=== PATIENT | female | born 1970 | race African-American/Black ===

== ENCOUNTER 2016-06-12 02:19 | Inpatient (IN) | payer MEDICARE ==
[~2016-06-12] VITALS: Ht 175.3 cm; Wt 68.5 kg
[~2016-06-12 02:19] MED LIST: ACET325T16 PO; ACET325T9 PO; BACI1TAB2 PO; CETI10TA22 PO; CIPR500T PO; COLC0.6T34 PO; CYAN10002 IJ; CYAN10002 IM; CYAN10005 PO; CYCL10TA2 PO; DEFE360T PO; FLUT16SP NS; FLUT9.9S NS; FOLI0.4T2 PO; FOLI1TAB16 PO; HYDR500C3 PO; LANS15CA66 PO; METO25TA4 PO; MONT10TA9 PO; MORP15TA3 PO; MULT-245 PO; OXYC-250 PO; OXYC10TA PO
[2016-06-12 03:25] LABS: BASO # 0.1 x10^3/uL (0.0-0.2); BASO % 1 % (0-3); EOS % 1 % (0-3); LYMPH # 5.5 x10^3/uL (1.0-4.8); LYMPH % 35 % (24-48); MEAN CORPUSCULAR HEMOGLOBIN 36 pg (25-35); MEAN CORPUSCULAR HGB CONC 35 g/dL (31-37); MEAN CORPUSCULAR VOLUME 102 fL (79-100); MONO % 14 % (0-9); NEUT % 50 % (31-73); PLATELET COUNT 282 x10^3/uL (140-400); RED BLOOD COUNT 1.94 x10^6/uL (3.50-5.40); RED CELL DISTRIBUTION WIDTH 19.8 % (11.5-14.5); WHITE BLOOD COUNT 15.9 x10^3/uL (4.0-11.0)
[2016-06-12] MEDS ORDERED: HYDROMORPHONE 2 MG/ML VIAL. IV ONE (03:30)
[2016-06-12] MEDS ORDERED: IV NORMAL SALINE 1000ML BAG 1,000 ML IV ONE (03:30)
[2016-06-12] MEDS: PROMETHAZINE 12.5 MG in IV NORMAL SALINE 50ML 50 ML IV PRN (03:40)
[2016-06-12 03:42] LABS: HEMATOCRIT 19.8 % (36.0-47.0)
[2016-06-12 03:43] LABS: RETIC COUNT 4.4 % (0.5-2.5)
[2016-06-12 04:59] VITALS: BP 154/96
--- NOTE | 2016-06-12 05:08 | PHYS DOC ---
Past Medical History Past Medical History: Sickle Cell Disease Additional Past Medical Histor: sickle cell Past Surgical History: Cholecystectomy Alcohol Use: None Drug Use: None Adult General Chief Complaint Chief Complaint: PAIN CONTROL HPI HPI 45-year-old female with known history of sickle cell disease is presenting in acute pain crisis. She states she had a febrile illness several days ago that preceded her symptoms. She states her pain is diffusely painful. Is no focality of her symptoms. She's got diffuse joint aches everywhere. She denies any significant chest pain or shortness of breath. Patient is in no distress at this time but does rate her pain a 10 out of 10 on the pain scale. Review of Systems Review of Systems Constitutional: Denies fever or chills [] Eyes: Denies change in visual acuity, redness, or eye pain [] HENT: Denies nasal congestion or sore throat [] Respiratory: Denies cough or shortness of breath [] Cardiovascular: No additional information not addressed in HPI [] GI: Denies abdominal pain, nausea, vomiting, bloody stools or diarrhea [] : Denies dysuria or hematuria [] Musculoskeletal: Denies back pain, has joint pain [] Integument: Denies rash or skin lesions [] Neurologic: Denies headache, focal weakness or sensory changes [] Endocrine: Denies polyuria or polydipsia [] Current Medications Current Medications Current Medications Medications (Trade) Dose Ordered Sig/Nilda Start Time Stop Time Status Last Admin Dose Admin Hydromorphone HCl 1 mg 1 mg 1X ONCE 06/12/16 03:30 06/12/16 03:31 DC 06/12/16 03:40 1 MG Promethazine HCl 12.5 mg/Sodium Chloride 50.5 ml @ 151.5 mls/ hr PRN Q6HRS PRN 06/12/16 03:30 06/12/16 03:40 151.5 MLS/HR Sodium Chloride (Iv Sodium Chloride 0.9% 1000ml Bag) 1,000 ml @ 1,000 mls/hr 1X ONCE 06/12/16 03:30 06/12/16 04:29 DC 06/12/16 03:40 1,000 MLS/HR Allergies Allergies Allergies Coded Allergies Type Severity Reaction Last Updated Verified Penicillins Allergy Intermediate Rash 08/05/14 Yes bacitracin Allergy Intermediate Rash 08/05/14 Yes bacitracin zinc Allergy Intermediate Rash 08/05/14 Yes clindamycin Allergy Intermediate Rash 08/05/14 Yes neomycin sulfate Allergy Intermediate Rash 08/05/14 Yes polymyxin B Allergy Intermediate Rash 08/05/14 Yes silver sulfadiazine Allergy Intermediate 07/13/15 Yes sulfamethoxazole Allergy Intermediate 02/07/15 Yes trimethoprim Allergy Intermediate 02/07/15 Yes diltiazem Allergy Mild hives 03/02/16 Yes fentanyl Adverse Reaction Intermediate CAUSE SEVERE HEADACHE AND N/V 02/07/15 Yes Physical Exam Physical Exam Constitutional: Well developed, well nourished, no acute distress, non-toxic appearance. [] HENT: Normocephalic, atraumatic, bilateral external ears normal, oropharynx moist, no oral exudates, nose normal. [] Eyes: PERRLA, EOMI, conjunctiva normal, no discharge. [] Neck: Normal range of motion, no tenderness, supple, no stridor. [] Cardiovascular:Heart rate regular rhythm, no murmur [] Lungs & Thorax: Bilateral breath sounds clear to auscultation [] Abdomen: Bowel sounds normal, soft, no tenderness, no masses, no pulsatile masses. [] Skin: Warm, dry, no erythema, no rash. [] Back: No tenderness, no CVA tenderness. [] Extremities: No tenderness, no cyanosis, no clubbing, ROM intact, no edema. [] Neurologic: Alert and oriented X 3, normal motor function, normal sensory function, no focal deficits noted. [] Psychologic: Affect normal, judgement normal, mood normal. [] Current Patient Data Vital Signs Vital Signs Date Time Temp Pulse Resp B/P Pulse Ox O2 Delivery O2 Flow Rate FiO2 06/12/16 03:40 20 06/12/16 03:30 86 94 06/12/16 02:57 98.4 180/102 Room Air 98.4 Lab Values Laboratory Tests Test 06/12/16 02:52 White Blood Count 15.9x10^3/uL (4.0-11.0) H Red Blood Count 1.94x10^6/uL (3.50-5.40) L Hemoglobin 7.0g/dL (12.0-15.5) *L Hematocrit 19.8% (36.0-47.0) *L Mean Corpuscular Volume 102fL (79-100) H Mean Corpuscular Hemoglobin 36pg (25-35) H Mean Corpuscular Hemoglobin Concent 35g/dL (31-37) Red Cell Distribution Width 19.8% (11.5-14.5) H Platelet Count 282x10^3/uL (140-400) Neutrophils (%) (Auto) 50% (31-73) Lymphocytes (%) (Auto) 35% (24-48) Monocytes (%) (Auto) 14% (0-9) H Eosinophils (%) (Auto) 1% (0-3) Basophils (%) (Auto) 1% (0-3) Neutrophils # (Auto) 8.0x10^3uL (1.8-7.7) H Lymphocytes # (Auto) 5.5x10^3/uL (1.0-4.8) H Monocytes # (Auto) 2.2x10^3/uL (0.0-1.1) H Eosinophils # (Auto) 0.2x10^3/uL (0.0-0.7) Basophils # (Auto) 0.1x10^3/uL (0.0-0.2) Platelet Estimate Adequate (ADEQUATE) Giant Platelets Few Polychromasia Mod Anisocytosis Slight Sickle Cells Many Target Cells Few Tear Drop Cells Occ Reticulocyte Count (auto) 4.4% (0.5-2.5) H Sodium Level 146mmol/L (136-145) H Potassium Level 4.1mmol/L (3.5-5.1) Chloride Level 111mmol/L (98-107) H Carbon Dioxide Level 24mmol/L (21-32) Anion Gap 11 (6-14) Blood Urea Nitrogen 9mg/dL (7-20) Creatinine 0.7mg/dL (0.6-1.0) Estimated GFR (Cockcroft-Gault) 109.5 BUN/Creatinine Ratio 13 (6-20) Glucose Level 131mg/dL (70-99) H Calcium Level 8.3mg/dL (8.5-10.1) L Total Bilirubin 2.5mg/dL (0.2-1.0) H Aspartate Amino Transferase (AST) 63U/L (15-37) H Alanine Aminotransferase (ALT) 75U/L (14-59) H Alkaline Phosphatase 85U/L (46-116) Total Protein 7.7g/dL (6.4-8.2) Albumin 3.7g/dL (3.4-5.0) Albumin/Globulin Ratio 0.9 (1.0-1.7) L Laboratory Tests 06/12/16 02:52 Laboratory Tests 06/12/16 02:52 EKG EKG [] Radiology/Procedures Radiology/Procedures [] Course & Med Decision Making Course & Med Decision Making Pertinent Labs and Imaging studies reviewed. (See chart for details) This 45-year-old female who presents in sickle cell pain crisis has an anemia of 7.0 which is less than previous hematoma she's had. Her previous hemoglobin levels have been closer to 8. She was given multiple doses of IV Dilaudid but her pain is still significant. I discussed the need to admit her for sickle cell anemia and pain crisis with the hospitalist, Dr. Santa, who agreed with this assessment and plan. Dragon Disclaimer Dragon Disclaimer This electronic medical record was generated, in whole or in part, using a voice recognition dictation system. Departure Departure Impression: Primary Impression: Sickle cell anemia with pain Disposition: ADMITTED INPATIENT Admitting Physician: Ch[place] Sierra Condition: STABLE Referrals: KIA SANTA MD (PCP) GLORIA GRAMAJO DO Jun 12, 2016 05:08
[2016-06-12] MEDS: HYDROMORPHONE 2 MG/ML VIAL. IV SCH ×2 (05:16→05:40)
[2016-06-12 05:19] LABS: PLT ESTIMATE ADEQUATE (ADEQUATE)
[2016-06-12 05:20] LABS: ANISOCYTOSIS SLIGHT; POLYCHROMASIA MOD; SICKLE CELLS MANY; TARGET CELLS FEW; TEAR DROP CELLS OCC
[2016-06-12] MEDS: IV NORMAL SALINE 1000ML BAG 1,000 ML IV SCH ×2 (06:08→16:07)
[2016-06-12 06:22] LABS: ALBUMIN 3.7 g/dL (3.4-5.0); ALBUMIN/GLOBULIN RATIO 0.9 (1.0-1.7); CALCIUM 8.3 mg/dL (8.5-10.1); CREATININE 0.7 mg/dL (0.6-1.0); GFR 109.5; POTASSIUM 4.1 mmol/L (3.5-5.1); TOTAL BILIRUBIN 2.5 mg/dL (0.2-1.0); TOTAL PROTEIN 7.7 g/dL (6.4-8.2)
[2016-06-12 07:00] VITALS: BP 121/67
[2016-06-12 07:21] LABS: OBC FLU VALID
[2016-06-12] MEDS ORDERED: PNEUMOCOCCAL VAX SCREEN BY RX. MC ONE (08:00)
[2016-06-12] MEDS: HYDROMORPHONE 2 MG/ML VIAL. IV PRN ×4 (08:25→21:37)
[2016-06-12] MEDS ORDERED: PNEUMOC CONJ VACC 23-VALENT 0.5 ML VIAL. VAX IM ONE (09:00)
--- NOTE | 2016-06-12 09:38 | ACF ---
Admission Forms Criteria SICKLE CELL DISEASE Clinical Indications for Admission to Inpatient Care (Place 'X' for any and all applicable criteria): Admission is indicated for ANY ONE of the following(1)(2)(3)(4)(5): [X ]I. Inpatient admission required rather than observation care because of ANY ONE of the following: [ ]a) Altered mental status [ ]b) High fever or infection requiring inpatient admission as indicated by ANY ONE of the following: [ ]A. Appropriate outpatient observation care antimicrobial treatment unavailable, not effective, or not appropriate for infection [ ]B. Documented bacteremia [ ]C. Temp >104.9F (40.5C) (oral) [ ]D. Temp >103.1F (oral) or <96.8F(rectal) that does not respond to all emergency treatment measures [ ]c) Supplemental O2 or respiratory therapy for over 24 h that are performable only in acute inpatient setting [X ]d) Continuous parenteral narcoticsother major pain intervention for >24 h performable only in acute inpatient setting. [ ]e) Exchange transfusion [ ]f) Other condition, treatment or monitoring requiring inpatient admission [ ]II. Acute chest syndrome indicated by ALL of the following (10): [ ]a) New alveolar infiltrate involving at least one lung segment [ ]b) Associated pulmonary symptoms or findings as indicated by ANY ONE of the following: [ ]i) Chest pain [ ]ii) Hypoxemia [ ]iii) Tachypnea/dyspnea [ ]iv) Wheezing [ ]v) Cough [ ]vi) Sputum production [ ]III. Significant hypoxemia or acidosis (more severe than baseline) [ ]IV. Emergent surgery needed (eg, acute cholecystitis) [ ]V. -related complication(11) [ ]. Splenic or hepatic sequestration(12) [ ]VII. Aplastic crisis [ ]VIII. Priapism or other vascular complication(13) [ ]IX. Traumatic hyphema [A](14) [ ]X. Underlying condition requiring hospitalization (eg, osteomyelitis) [ ]XI. Signs or symptoms of central nervous system injury indicated by ANY ONE of the following: [ ]a) Stroke(9) [ ]b) Seizure [ ]c) Other significant central nervous system symptom or event [ ]XII. Acute renal failure Extended stay beyond goal length of stay may be needed for: [ ]a) Inadequate pain control [ ]b) Acute chest syndrome [ ]c) Sequestration or aplastic crisis (12) [ ]d) Pneumonia and asthma exacerbation [ ]e) Neurologic or vascular complications (25) [ ]f) Infection (eg, osteomyelitis) that requires ongoing treatment) The original [facility] content created by [facility] has been revised. The portions of the content which have been revised are identified through the use of italic text or in bold, and [facility] has neither reviewed nor approved the modified material. All other unmodified content is copyright [facility]. Please see references footnoted in the original [facility] edition 2016 Admission Criteria Met?: Yes GISELL GARCIA Jun 12, 2016 09:38
[2016-06-12] MEDS ORDERED: ACETAMINOPHEN 325 MG TABLET. PO PRN ×2 (09:45)
[2016-06-12] MEDS: FLUTICASONE 50MCG/NASAL SPRAY 16GM BOTTLE. NS SCH (10:12)
[2016-06-12] MEDS: METOPROLOL TART IMMED RELEASE 25 MG TABLET PO SCH ×2 (10:13→21:31)
[2016-06-12] MEDS: CYANOCOBALAMIN (VITAMIN B-12) 1,000 MCG TABLET. PO SCH (10:13)
[2016-06-12] MEDS: MORPHINE ER 15 MG TABLET.ER PO SCH ×2 (10:14→21:00)
[2016-06-12] MEDS: FOLIC ACID 1 MG TABLET PO SCH (10:14)
[2016-06-12 11:00] VITALS: BP 124/74
[2016-06-12] MEDS ORDERED: OSELTAMIVIR 75 MG CAPSULE PO ONE (11:15)
--- NOTE | 2016-06-12 12:39 | PDOC ---
Provider Note Provider Note Patient seen. History and Physical dictated. See dictation# [id number]. KIA SANTA MD Jun 12, 2016 12:39
--- NOTE | 2016-06-12 14:05 | RAD ---
Two view chest History:Cough, shortness of breath . PA and lateral views of the chest are submitted. Comparison: 03/02/2016 Findings: There is no significant infiltrate, pleural effusion, or pneumothorax. The pericardial cardiac silhouette is within normal limits in size. The trachea is in the midline. No acute osseous abnormality is identified. Impression: There is no evidence of acute cardiopulmonary disease.
--- NOTE | 2016-06-12 14:31 | PDOC ---
Provider Note Provider Note Onc consult dictated- [id number] SCD with crisis related to Influenza A last week- Cont supportive care, IVF, improving. Restarted hydrea. Iron overload from transfusions- on Exjade as outpt. Limit transfusions for hgb <6 please. Ok to DC from heme standpoint when sx are stable, hopefully tomorrow. ANTONIETA BAILEY DO Jun 12, 2016 14:31
[2016-06-12 15:00] VITALS: BP 116/71
[2016-06-12 18:52] LABS: BILIRUBIN,URINE NEGATIVE (NEG); GLUCOSE,URINE NEGATIVE (NEG); NITRITE,URINE NEGATIVE (NEG); PROTEIN,URINE NEGATIVE (NEG-TRACE); UROBILINOGEN,URINE 0.2 mg/dL (0.2 mg/dL)
[2016-06-12 19:00] LABS: BACTERIA,URINE FEW /HPF (0-FEW); RBC,URINE 0 /HPF (0-2); SQUAMOUS EPITHELIAL CELL,UR FEW /LPF; WBC,URINE OCC /HPF (0-4)
[2016-06-12 19:12] VITALS: BP 123/75
[2016-06-12] MEDS: OXYCODONE IR 5 MG TABLET. PO PRN (19:21)
[2016-06-12] MEDS: CETIRIZINE HCL 10 MG TABLET PO SCH (21:31)
[2016-06-12] MEDS: HYDROXYUREA 500 MG CAPSULE PO SCH (21:34)
[2016-06-12] MEDS: MONTELUKAST SODIUM 10 MG TABLET. PO SCH (21:36)
--- NOTE | 2016-06-12 22:16 | HP ---
ADMIT DATE: 06/12/2016 REASON FOR ADMISSION: Acute sickle cell crisis. HISTORY OF PRESENT ILLNESS: This 45-year-old -[place] female presented to the Emergency Room with complaints of body ache, cough, congestion getting worse. The patient was recently diagnosed with influenzae and was started on Tamiflu. She has taken nine tablets of Tamiflu. She is having cough with yellow expectoration. She is feeling weak and more tired. In the Emergency Room, the patient was noted to have acute sickle cell crisis. WBC count was 15.9, hemoglobin 7 and retic count was 4.4. Because of the acute sickle cell crisis, the patient was admitted for further evaluation and management. REVIEW OF SYSTEMS: As noted above. The patient denies any nausea, vomiting, diarrhea, constipation, abdominal pain. She is complaining of joint pains, body aches, fatigue and cough with yellow expectoration. Other systems reviewed and are negative. PAST MEDICAL HISTORY: The patient has been admitted here recently in March 2016. At that time, she was noted to have supraventricular tachycardia. 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 PAST SURGICAL HISTORY: None. FAMILY HISTORY: Sickle cell trait in parents. SOCIAL HISTORY: . No history of smoking, alcoholism or drug abuse. MEDICATIONS: I reviewed the medications. Please review the orders. ALLERGIES: The patient is allergic to PENICILLIN, BACITRACIN, ZINC, CLINDAMYCIN, NEOMYCIN, POLYMYXIN B, SILVER SULFADIAZINE, SULFAMETHOXAZOLE, TRIMETHOPRIM, DILTIAZEM and FENTANYL. PHYSICAL EXAMINATION: VITAL SIGNS: Temperature 98.8, pulse 64 per minute, respirations 18 per minute, blood pressure 124/74 mmHg. Earlier on admission, her blood pressure was 154/96 mmHg. GENERAL: The patient is alert, oriented, acutely ill and not in any acute distress. EYES: Pupils reacting to light. Conjunctivae pale. Sclerae muddy. HENT: Mild congestion of throat. NECK: Supple. JVP normal. No thyromegaly. Trachea midline. LUNGS: Clear with decreased breath sounds at bases. CARDIOVASCULAR: S1, S2 regular. ABDOMEN: Soft, nontender, no guarding, no rigidity. Bowel sounds present. EXTREMITIES: No edema. Some tenderness of the joints and painful range of motion. CENTRAL NERVOUS SYSTEM: Alert, oriented, generalized weakness. LABORATORY FINDINGS: WBC count 15.9, hemoglobin 7%, retic count 4.4. Sodium 146, potassium 4.1, BUN 9, creatinine 0.7, total bilirubin 2.5, AST 63, ALT 75. IMPRESSION: 1. Acute sickle cell crisis. This may be precipitated by her recent influenzae infection. 2. Influenza A infection, improving. 3. Acute bronchitis. This may be due to secondary bacterial infection. 4. Accelerated hypertension, probably due to pain, improving. 5. Pulmonary hypertension. 6. Gastroesophageal reflux disease. 7. Anemia. 8. Iron overload from previous transfusions. 9. Chronic right ankle pain. PLAN: I will finish one more dose of Tamiflu. Consult Dr. Ramirez for hematology evaluation and management. The patient may need blood transfusion. The patient has some hypovolemia. I will start her on IV fluids. I will also give her IV Levaquin to cover for bacterial bronchitis. For details, please review the orders. I will also obtain a chest x-ray and urinalysis. For details, please review the orders. KIA SANTA MD DR: BENIGNO/rylan JOB#: [id number] / [id number]
[2016-06-12 23:17] VITALS: BP 120/69
--- NOTE | 2016-06-13 01:21 | CONS ---
DATE OF CONSULTATION: 06/12/2016 REFERRING PROVIDER: Dr. Sly Hoffman. REASON FOR CONSULTATION: Sickle cell crisis. HISTORY OF PRESENT ILLNESS: The patient is a 45-year-old female known to me in clinic with a history of sickle cell disease. Overall, she remains very stable, but does get admitted approximately twice a year with sickle cell crises. Her baseline hemoglobin is around 8-8.5. She was diagnosed with influenza A last week and started on Tamiflu. Her symptoms of fatigue, nausea, vomiting, diarrhea, diffuse arthralgias, improved; however, later in the week, she began to have a flare up of her baseline pain which is generally fairly well controlled. She has been on Hydrea 500 mg b.i.d. and her PCP controls her pain medication. Here, her hemoglobin was 7.0. Reticulocyte count 4.4, white blood cell count 15.9. Repeat influenza testing was negative. She is feeling better now that she has been getting IV fluids. 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 PAST SURGICAL HISTORY: Cholecystectomy, multiple dilations and curettage, skin grafting, bilateral ankle surgeries as a child for the MRSA infection. FAMILY HISTORY: Mom and dad have sickle cell trait. Mom has hypertension as well. SOCIAL HISTORY: Denies any tobacco, alcohol or drug use. ALLERGIES: Extensive list reviewed. Please see medical record. CURRENT MEDICATIONS: Tylenol, Zyrtec, vitamin B12, Flonase, folic acid, Dilaudid, Lopressor, Singulair, MS Contin, oxycodone, Compazine, her Hydrea is missing. REVIEW OF SYSTEMS: Ten point review of systems completed and unremarkable with the exception of the diffuse arthralgias, now improving. PHYSICAL EXAMINATION: VITAL SIGNS: Temperature 98.8, pulse 64, respiratory rate 18, blood pressure 124/74, 100% O2 on 2 liters. GENERAL: She is alert and oriented. She does appear fatigued, but in no apparent distress at this time. HEENT: Extraocular muscles are intact. Sclerae are without icterus. Mucous membranes are dry. CARDIOVASCULAR: Heart is regular in rhythm and rate. LUNGS: Clear to auscultation bilaterally. ABDOMEN: Soft, nontender. EXTREMITIES: No edema. NEUROLOGIC: No focal deficits. IMAGING/LABORATORY DATA: CBC as above. CMP unremarkable with the exception of total bilirubin 2.5, AST 63, ALT 75. Chest x-ray was negative. ASSESSMENT AND PLAN: The patient is a 45-year-old female with the following medical problems: 1. Sickle cell disease, generally very stable, but with crisis related to influenza A infection last week. Her baseline hemoglobin is 8.5. Her hemoglobin on admission was 7.0. With the IV fluids that we are giving her for supportive care, her hemoglobin may dip further overnight. I would not recommend a transfusion unless her hemoglobin drops less than 6. I have restarted her Hydrea 500 mg b.i.d. She should continue on folic acid as well. Overall, she appears very stable. I will continue to follow up with her as planned in clinic, likely in the next few months. 2. Iron overload related to ongoing transfusions. Again, please limit transfusions as possible. She is on Exjade as an outpatient. It is okay that she is not receiving this while admitted. 3. Recent influenza infection. Repeat testing is negative. Thank you for alerting me of her admission. From a hematology standpoint, she can be discharged at any point when her symptoms are improved. I believe her hemoglobin will slowly rise over time. ANTONIETA BAILEY DO DR: LATA/rylan JOB#: [id number] / [id number]
[2016-06-13 03:20] VITALS: BP 117/67
[2016-06-13] MEDS: HYDROMORPHONE 2 MG/ML VIAL. IV PRN ×6 (04:19→23:54)
[2016-06-13] MEDS: IV NORMAL SALINE 1000ML BAG 1,000 ML IV SCH ×3 (04:20→15:01)
[2016-06-13 05:11] LABS: BASO # 0.1 x10^3/uL (0.0-0.2); BASO % 1 % (0-3); EOS % 3 % (0-3); LYMPH % 40 % (24-48); MEAN CORPUSCULAR HEMOGLOBIN 36 pg (25-35); MEAN CORPUSCULAR HGB CONC 34 g/dL (31-37); MEAN CORPUSCULAR VOLUME 105 fL (79-100); MONO % 15 % (0-9); NEUT % 40 % (31-73); PLATELET COUNT 294 x10^3/uL (140-400); RED BLOOD COUNT 1.88 x10^6/uL (3.50-5.40); RED CELL DISTRIBUTION WIDTH 18.6 % (11.5-14.5); WHITE BLOOD COUNT 12.3 x10^3/uL (4.0-11.0)
[2016-06-13 05:28] LABS: HEMATOCRIT 19.6 % (36.0-47.0); HEMOGLOBIN 6.7 g/dL (12.0-15.5)
[2016-06-13 05:54] LABS: ALBUMIN 3.2 g/dL (3.4-5.0); ALBUMIN/GLOBULIN RATIO 0.8 (1.0-1.7); CALCIUM 8.1 mg/dL (8.5-10.1); CREATININE 0.6 mg/dL (0.6-1.0); GFR 130.8; POTASSIUM 4.2 mmol/L (3.5-5.1); TOTAL BILIRUBIN 1.6 mg/dL (0.2-1.0)
[2016-06-13 07:00] VITALS: BP 125/76
[2016-06-13] MEDS ORDERED: MORPHINE ER 15 MG TABLET.ER PO ONE (08:50)
[2016-06-13] MEDS: MORPHINE ER 15 MG TABLET.ER PO SCH ×2 (09:09→21:40)
[2016-06-13] MEDS: METOPROLOL TART IMMED RELEASE 25 MG TABLET PO SCH ×2 (09:10→21:40)
[2016-06-13] MEDS: FOLIC ACID 1 MG TABLET PO SCH (09:10)
[2016-06-13] MEDS: CYANOCOBALAMIN (VITAMIN B-12) 1,000 MCG TABLET. PO SCH (09:10)
[2016-06-13] MEDS: FLUTICASONE 50MCG/NASAL SPRAY 16GM BOTTLE. NS SCH (09:10)
--- NOTE | 2016-06-13 09:14 | PDOC ---
NARENDRAHILDAANNABELLA MAIL SORTER 06/13/16 0914: IM PROGRESS NOTES- Subjective Subjective continues with cough. non productive. (was productive last week yellow sputum) Objective Objective no distress Vitals Vital Signs Date Time Temp Pulse Resp B/P Pulse Ox O2 Delivery O2 Flow Rate FiO2 06/13/16 07:15 Nasal Cannula 2.0 06/13/16 07:00 98.3 66 16 125/76 100 98.3 Input & Output Intake and Output 06/13/16 07:00 Intake Total 2736 ml Output Total 800 ml Balance 1936 ml Intake Oral 1690 ml IV Total 1046 ml Output Urine Total 800 ml # Voids 3 Physical Exam Physical Exam General appearance - alert, ill appearing, and in no distress Mental Status - alert, oriented to person, place, and time, affect appropriate to mood Head - normal Chest - clear to auscultation, no wheezes, rales or rhonchi, tight bronchial cough Heart - S1 and S2 normal Abdomen - soft, nontender, nondistended, BS+ Neurological - no acute focal neurological deficits noted Musculoskeletal - no muscular tenderness noted Extremities - no pedal edema Skin - warm and dry Labs Laboratory Tests Test 06/12/16 02:52 06/12/16 06:00 06/12/16 16:50 06/13/16 04:35 White Blood Count 15.9x10^3/uL (4.0-11.0) 12.3x10^3/uL (4.0-11.0) Red Blood Count 1.94x10^6/uL (3.50-5.40) 1.88x10^6/uL (3.50-5.40) Hemoglobin 7.0g/dL (12.0-15.5) 6.7g/dL (12.0-15.5) Hematocrit 19.8% (36.0-47.0) 19.6% (36.0-47.0) Mean Corpuscular Volume 102fL (79-100) 105fL (79-100) Mean Corpuscular Hemoglobin 36pg (25-35) 36pg (25-35) Mean Corpuscular Hemoglobin Concent 35g/dL (31-37) 34g/dL (31-37) Red Cell Distribution Width 19.8% (11.5-14.5) 18.6% (11.5-14.5) Platelet Count 282x10^3/uL (140-400) 294x10^3/uL (140-400) Neutrophils (%) (Auto) 50% (31-73) 40% (31-73) Lymphocytes (%) (Auto) 35% (24-48) 40% (24-48) Monocytes (%) (Auto) 14% (0-9) 15% (0-9) Eosinophils (%) (Auto) 1% (0-3) 3% (0-3) Basophils (%) (Auto) 1% (0-3) 1% (0-3) Neutrophils # (Auto) 8.0x10^3uL (1.8-7.7) 5.0x10^3uL (1.8-7.7) Lymphocytes # (Auto) 5.5x10^3/uL (1.0-4.8) 5.0x10^3/uL (1.0-4.8) Monocytes # (Auto) 2.2x10^3/uL (0.0-1.1) 1.9x10^3/uL (0.0-1.1) Eosinophils # (Auto) 0.2x10^3/uL (0.0-0.7) 0.4x10^3/uL (0.0-0.7) Basophils # (Auto) 0.1x10^3/uL (0.0-0.2) 0.1x10^3/uL (0.0-0.2) Platelet Estimate Adequate (ADEQUATE) Giant Platelets Few Polychromasia Mod Anisocytosis Slight Sickle Cells Many Target Cells Few Tear Drop Cells Occ Reticulocyte Count (auto) 4.4% (0.5-2.5) Sodium Level 146mmol/L (136-145) 144mmol/L (136-145) Potassium Level 4.1mmol/L (3.5-5.1) 4.2mmol/L (3.5-5.1) Chloride Level 111mmol/L (98-107) 109mmol/L (98-107) Carbon Dioxide Level 24mmol/L (21-32) 24mmol/L (21-32) Anion Gap 11 (6-14) 11 (6-14) Blood Urea Nitrogen 9mg/dL (7-20) 4mg/dL (7-20) Creatinine 0.7mg/dL (0.6-1.0) 0.6mg/dL (0.6-1.0) Estimated GFR (Cockcroft-Gault) 109.5 130.8 BUN/Creatinine Ratio 13 (6-20) 7 (6-20) Glucose Level 131mg/dL (70-99) 96mg/dL (70-99) Calcium Level 8.3mg/dL (8.5-10.1) 8.1mg/dL (8.5-10.1) Total Bilirubin 2.5mg/dL (0.2-1.0) 1.6mg/dL (0.2-1.0) Aspartate Amino Transf (AST/SGOT) 63U/L (15-37) 41U/L (15-37) Alanine Aminotransferase (ALT/SGPT) 75U/L (14-59) 56U/L (14-59) Alkaline Phosphatase 85U/L (46-116) 61U/L (46-116) Total Protein 7.7g/dL (6.4-8.2) 7.0g/dL (6.4-8.2) Albumin 3.7g/dL (3.4-5.0) 3.2g/dL (3.4-5.0) Albumin/Globulin Ratio 0.9 (1.0-1.7) 0.8 (1.0-1.7) Influenza Type A Antigen Negative (NEGATIVE) Influenza Type B Antigen Negative (NEGATIVE) Urine Collection Type Unknown Urine Color Yellow Urine Clarity Clear Urine pH 6.0 Urine Specific [place] <=1.005 Urine Protein Negativemg/dL (NEG-TRACE) Urine Glucose (UA) Negativemg/dL (NEG) Urine Ketones (Stick) Negativemg/dL (NEG) Urine Blood Negative (NEG) Urine Nitrite Negative (NEG) Urine Bilirubin Negative (NEG) Urine Urobilinogen Dipstick 0.2mg/dL (0.2 mg/dL) Urine Leukocyte Esterase Negative (NEG) Urine RBC 0/HPF (0-2) Urine WBC Occ/HPF (0-4) Urine Squamous Epithelial Cells Few/LPF Urine Bacteria Few/HPF (0-FEW) Laboratory Tests Test 06/12/16 16:50 06/13/16 04:35 Urine Collection Type Unknown Urine Color Yellow Urine Clarity Clear Urine pH 6.0 Urine Specific [place] <=1.005 Urine Protein Negativemg/dL (NEG-TRACE) Urine Glucose (UA) Negativemg/dL (NEG) Urine Ketones (Stick) Negativemg/dL (NEG) Urine Blood Negative (NEG) Urine Nitrite Negative (NEG) Urine Bilirubin Negative (NEG) Urine Urobilinogen Dipstick 0.2mg/dL (0.2 mg/dL) Urine Leukocyte Esterase Negative (NEG) Urine RBC 0/HPF (0-2) Urine WBC Occ/HPF (0-4) Urine Squamous Epithelial Cells Few/LPF Urine Bacteria Few/HPF (0-FEW) White Blood Count 12.3x10^3/uL (4.0-11.0) Red Blood Count 1.88x10^6/uL (3.50-5.40) Hemoglobin 6.7g/dL (12.0-15.5) Hematocrit 19.6% (36.0-47.0) Mean Corpuscular Volume 105fL (79-100) Mean Corpuscular Hemoglobin 36pg (25-35) Mean Corpuscular Hemoglobin Concent 34g/dL (31-37) Red Cell Distribution Width 18.6% (11.5-14.5) Platelet Count 294x10^3/uL (140-400) Neutrophils (%) (Auto) 40% (31-73) Lymphocytes (%) (Auto) 40% (24-48) Monocytes (%) (Auto) 15% (0-9) Eosinophils (%) (Auto) 3% (0-3) Basophils (%) (Auto) 1% (0-3) Neutrophils # (Auto) 5.0x10^3uL (1.8-7.7) Lymphocytes # (Auto) 5.0x10^3/uL (1.0-4.8) Monocytes # (Auto) 1.9x10^3/uL (0.0-1.1) Eosinophils # (Auto) 0.4x10^3/uL (0.0-0.7) Basophils # (Auto) 0.1x10^3/uL (0.0-0.2) Sodium Level 144mmol/L (136-145) Potassium Level 4.2mmol/L (3.5-5.1) Chloride Level 109mmol/L (98-107) Carbon Dioxide Level 24mmol/L (21-32) Anion Gap 11 (6-14) Blood Urea Nitrogen 4mg/dL (7-20) Creatinine 0.6mg/dL (0.6-1.0) Estimated GFR (Cockcroft-Gault) 130.8 BUN/Creatinine Ratio 7 (6-20) Glucose Level 96mg/dL (70-99) Calcium Level 8.1mg/dL (8.5-10.1) Total Bilirubin 1.6mg/dL (0.2-1.0) Aspartate Amino Transf (AST/SGOT) 41U/L (15-37) Alanine Aminotransferase (ALT/SGPT) 56U/L (14-59) Alkaline Phosphatase 61U/L (46-116) Total Protein 7.0g/dL (6.4-8.2) Albumin 3.2g/dL (3.4-5.0) Albumin/Globulin Ratio 0.8 (1.0-1.7) Meds Current Medications Acetaminophen (Tylenol) 650 mg PRN Q6HRS PRN PO MILD PAIN / TEMP; Start at 09:45; Stop 06/12/16 at 16:35; Status DC Acetaminophen (Tylenol) 650 mg PRN Q6HRS PRN PO MILD PAIN / TEMP; Start at 09:45 Cetirizine HCl (Zyrtec) 10 mg QHS PO Last administered on 06/12/16 21:31; Start 06/12/16 at 21:00 Cyanocobalamin (Vitamin B-12) 1,000 mcg DAILY PO Last administered on 10:13; Start 06/12/16 at 10:00 Fluticasone Propionate (Flonase) 1 spray DAILY NS Last administered on 10:12; Start 06/12/16 at 10:00 Folic Acid (Folic Acid) 1 mg DAILY PO Last administered on 06/12/16 10:14; Start 06/12/16 at 10:00 Hydroxyurea (Hydrea) 500 mg BID PO Last administered on 06/12/16 21:34; Start 06/12/16 at 21:00 Levofloxacin/ Dextrose (LEVAQUIN 500mg PREMIX) 100 ml @ 100 mls/hr DAILY IV Last administered on 06/12/16 13:29; Start 06/12/16 at 13:00 Metoprolol Tartrate (Lopressor) 12.5 mg BID PO Last administered on 06/12/16 21:31; Start 06/12/16 at 10:00 Montelukast Sodium (Singulair) 10 mg QHS PO Last administered on 06/12/16 21: 36; Start 06/12/16 at 21:00 Morphine Sulfate (Ms Contin) 15 mg BID PO Last administered on 06/12/16 10:14 ; Start 06/12/16 at 10:00 Oseltamivir Phosphate 75 mg 75 mg 1X ONCE PO Last administered on 06/12/16 11 :33; Start 06/12/16 at 11:15; Stop 06/12/16 at 11:16; Status DC Oxycodone HCl (Roxicodone) 10 mg PRN Q4HRS PRN PO PAIN Last administered on 19:21; Start 06/12/16 at 09:45 Assessment Assessment 1. Acute sickle cell crisis. This may be precipitated by her recent influenzae infection. 2. Influenza A infection, improving. 3. Acute bronchitis. This may be due to secondary bacterial infection. 4. Accelerated hypertension, probably due to pain, improving. 5. Pulmonary hypertension. 6. Gastroesophageal reflux disease. 7. Anemia. 8. Iron overload from previous transfusions. 9. Chronic right ankle pain. PLAN: acute brochitis post influenzae A infection levaquin begin duoneb nebulizer today dc home with antibiotic/symbicort inhaler SSC improved after IVF anemia no transfusion unless <6.0 Liver iron overload disease LFTs improving. DVT/GI prophylaxis SCD/MARIYA pepcid For further plan of care, please refer to the orders. Dr. Guzman has okd discharge. Plan Plan For more details regarding further plans, please refer to the orders. KIA SANTA MD 06/13/16 0942: IM PROGRESS NOTES- Assessment Assessment Still coughing and congested with weakness and pain. Continue Levaquin.Add breathing RX. Discharge tomorrow. ANNABELLA ARRINGTON APRN Jun 13, 2016 09:14 KIA SANTA MD Jun 13, 2016 09:42
[2016-06-13] MEDS: HYDROXYUREA 500 MG CAPSULE PO SCH ×2 (09:15→21:43)
--- NOTE | 2016-06-13 09:22 | PDOC ---
Subjective: Subjective: Onc f/u- SCD Pt feels better with improved energy, less arthralgias, feels like she could manage on home meds now. Objective: Vital Signs: Vital Signs Date Time Temp Pulse Resp B/P Pulse Ox O2 Delivery O2 Flow Rate FiO2 06/13/16 09:11 Room Air 06/13/16 09:10 66 125/76 06/13/16 07:15 2.0 06/13/16 07:00 98.3 16 100 98.3 Physical Exam: Heart: Regular rate Extremities: No edema General: Alert, No acute distress Lungs: Normal air movement Psych/Mental Status: Mental status NL, Mood NL Labs/Imaging: Hgb 6.7 Assessment/Plan A/P: 1. Sickle cell disease with crises related to influenza A last week - Improved with supportive care, IVF - Continue hydrea, folic acid at home - Hgb baseline ~8, please limit transfusions for hgb < 6 to avoid further iron overload. Stable clinically today. - F/u with me as planned 2. Iron overload - Avoid transfusions as able - On Exjade as outpt. Ok to DC from onc standpoint. ANTONIETA BAILEY DO Jun 13, 2016 09:21
[2016-06-13 09:34] LABS: % EOS 2 % (0-5); NUCLEATED RBC 9
[2016-06-13 09:38] LABS: PLT ESTIMATE ADEQUATE (ADEQUATE)
[2016-06-13 09:39] LABS: ANISOCYTOSIS SLIGHT; POIKILOCYTOSIS PRESENT; SICKLE CELLS MOD; TARGET CELLS FEW; TEAR DROP CELLS OCC; TOXIC VACUOLATION PRESENT
[2016-06-13] MEDS: IPRATRPIUM/ALBUTEROL 0.5/2.5MG 3 ML NEBU. NEB SCH ×4 (10:00→19:29)
[2016-06-13] MEDS: GUAIFENESIN DM 600/30MG TAB.ER.12H. PO SCH ×2 (10:26→21:39)
[2016-06-13 11:00] VITALS: BP 135/78
[2016-06-13] MEDS: OXYCODONE IR 5 MG TABLET. PO PRN (12:24)
[2016-06-13] MEDS: PROMETHAZINE 12.5 MG in IV NORMAL SALINE 50ML 50 ML IV PRN (13:20)
[2016-06-13 15:00] VITALS: BP 122/69
[2016-06-13 19:00] VITALS: BP 132/76
[2016-06-13] MEDS: CETIRIZINE HCL 10 MG TABLET PO SCH (21:39)
[2016-06-13] MEDS: MONTELUKAST SODIUM 10 MG TABLET. PO SCH (21:39)
[2016-06-13 23:00] VITALS: BP 121/65
[2016-06-14] MEDS: IV NORMAL SALINE 1000ML BAG 1,000 ML IV SCH (01:29)
[2016-06-14 03:00] VITALS: BP 111/70
[2016-06-14 03:35] LABS: BASO # 0.1 x10^3/uL (0.0-0.2); BASO % 1 % (0-3); EOS % 3 % (0-3); LYMPH # 2.8 x10^3/uL (1.0-4.8); LYMPH % 22 % (24-48); MEAN CORPUSCULAR HEMOGLOBIN 36 pg (25-35); MEAN CORPUSCULAR HGB CONC 34 g/dL (31-37); MEAN CORPUSCULAR VOLUME 105 fL (79-100); MONO % 16 % (0-9); NEUT % 59 % (31-73); PLATELET COUNT 279 x10^3/uL (140-400); RED BLOOD COUNT 1.83 x10^6/uL (3.50-5.40); RED CELL DISTRIBUTION WIDTH 19.2 % (11.5-14.5)
[2016-06-14 03:43] LABS: ALBUMIN 3.4 g/dL (3.4-5.0); ALBUMIN/GLOBULIN RATIO 0.9 (1.0-1.7); CALCIUM 8.2 mg/dL (8.5-10.1); CREATININE 0.6 mg/dL (0.6-1.0); GFR 130.8; POTASSIUM 3.9 mmol/L (3.5-5.1); TOTAL BILIRUBIN 2.5 mg/dL (0.2-1.0); TOTAL PROTEIN 7.1 g/dL (6.4-8.2)
[2016-06-14 03:45] LABS: HEMOGLOBIN 6.6 g/dL (12.0-15.5)
[2016-06-14 03:46] LABS: HEMATOCRIT 19.2 % (36.0-47.0)
[2016-06-14] MEDS: HYDROMORPHONE 2 MG/ML VIAL. IV PRN (05:28)
--- NOTE | 2016-06-14 06:52 | PDOC ---
MURPHYANNABELLA CLOTH MEASURER 06/14/16 0652: IM PROGRESS NOTES- Subjective Subjective continues with cough. non productive. cough improved some with nebulizer treatment. Objective Objective no distress Vitals Vital Signs Date Time Temp Pulse Resp B/P Pulse Ox O2 Delivery O2 Flow Rate FiO2 06/14/16 05:58 20 Nasal Cannula 2.0 06/14/16 03:00 98.4 72 111/70 90 98.4 Input & Output Intake and Output 06/14/16 07:00 Intake Total 4748 ml Output Total 375 ml Balance 4373 ml Intake Oral 1400 ml IV Total 2148 ml Other 1200 ml Emesis 375 ml # Voids 4 Physical Exam Physical Exam General appearance - alert, ill appearing, and in no distress Mental Status - alert, oriented to person, place, and time, affect appropriate to mood Head - normal Chest - clear to auscultation, no wheezes, rales or rhonchi, tight bronchial cough Heart - S1 and S2 normal Abdomen - soft, nontender, nondistended, BS+ Neurological - no acute focal neurological deficits noted Musculoskeletal - no muscular tenderness noted Extremities - no pedal edema Skin - warm and dry Labs Laboratory Tests Test 06/12/16 16:50 06/13/16 04:35 06/14/16 03:05 Urine Collection Type Unknown Urine Color Yellow Urine Clarity Clear Urine pH 6.0 Urine Specific [place] <=1.005 Urine Protein Negativemg/dL (NEG-TRACE) Urine Glucose (UA) Negativemg/dL (NEG) Urine Ketones (Stick) Negativemg/dL (NEG) Urine Blood Negative (NEG) Urine Nitrite Negative (NEG) Urine Bilirubin Negative (NEG) Urine Urobilinogen Dipstick 0.2mg/dL (0.2 mg/dL) Urine Leukocyte Esterase Negative (NEG) Urine RBC 0/HPF (0-2) Urine WBC Occ/HPF (0-4) Urine Squamous Epithelial Cells Few/LPF Urine Bacteria Few/HPF (0-FEW) White Blood Count 12.3x10^3/uL (4.0-11.0) 13.0x10^3/uL (4.0-11.0) Red Blood Count 1.88x10^6/uL (3.50-5.40) 1.83x10^6/uL (3.50-5.40) Hemoglobin 6.7g/dL (12.0-15.5) 6.6g/dL (12.0-15.5) Hematocrit 19.6% (36.0-47.0) 19.2% (36.0-47.0) Mean Corpuscular Volume 105fL (79-100) 105fL (79-100) Mean Corpuscular Hemoglobin 36pg (25-35) 36pg (25-35) Mean Corpuscular Hemoglobin Concent 34g/dL (31-37) 34g/dL (31-37) Red Cell Distribution Width 18.6% (11.5-14.5) 19.2% (11.5-14.5) Platelet Count 294x10^3/uL (140-400) 279x10^3/uL (140-400) Neutrophils (%) (Auto) 40% (31-73) 59% (31-73) Lymphocytes (%) (Auto) 40% (24-48) 22% (24-48) Monocytes (%) (Auto) 15% (0-9) 16% (0-9) Eosinophils (%) (Auto) 3% (0-3) 3% (0-3) Basophils (%) (Auto) 1% (0-3) 1% (0-3) Neutrophils # (Auto) 5.0x10^3uL (1.8-7.7) 7.7x10^3uL (1.8-7.7) Lymphocytes # (Auto) 5.0x10^3/uL (1.0-4.8) 2.8x10^3/uL (1.0-4.8) Monocytes # (Auto) 1.9x10^3/uL (0.0-1.1) 2.0x10^3/uL (0.0-1.1) Eosinophils # (Auto) 0.4x10^3/uL (0.0-0.7) 0.4x10^3/uL (0.0-0.7) Basophils # (Auto) 0.1x10^3/uL (0.0-0.2) 0.1x10^3/uL (0.0-0.2) Segmented Neutrophils % 31% (35-66) Lymphocytes % 49% (24-48) Monocytes % 18% (0-10) Eosinophils % 2% (0-5) Nucleated Red Blood Cells 9 Toxic Vacuolation Present Platelet Estimate Adequate (ADEQUATE) Poikilocytosis Present Anisocytosis Slight Sickle Cells Mod Target Cells Few Tear Drop Cells Occ Sodium Level 144mmol/L (136-145) 143mmol/L (136-145) Potassium Level 4.2mmol/L (3.5-5.1) 3.9mmol/L (3.5-5.1) Chloride Level 109mmol/L (98-107) 107mmol/L (98-107) Carbon Dioxide Level 24mmol/L (21-32) 26mmol/L (21-32) Anion Gap 11 (6-14) 10 (6-14) Blood Urea Nitrogen 4mg/dL (7-20) 4mg/dL (7-20) Creatinine 0.6mg/dL (0.6-1.0) 0.6mg/dL (0.6-1.0) Estimated GFR (Cockcroft-Gault) 130.8 130.8 BUN/Creatinine Ratio 7 (6-20) 7 (6-20) Glucose Level 96mg/dL (70-99) 99mg/dL (70-99) Calcium Level 8.1mg/dL (8.5-10.1) 8.2mg/dL (8.5-10.1) Total Bilirubin 1.6mg/dL (0.2-1.0) 2.5mg/dL (0.2-1.0) Aspartate Amino Transf (AST/SGOT) 41U/L (15-37) 42U/L (15-37) Alanine Aminotransferase (ALT/SGPT) 56U/L (14-59) 47U/L (14-59) Alkaline Phosphatase 61U/L (46-116) 74U/L (46-116) Total Protein 7.0g/dL (6.4-8.2) 7.1g/dL (6.4-8.2) Albumin 3.2g/dL (3.4-5.0) 3.4g/dL (3.4-5.0) Albumin/Globulin Ratio 0.8 (1.0-1.7) 0.9 (1.0-1.7) Magnesium Level 1.5mg/dL (1.8-2.4) Laboratory Tests Test 06/14/16 03:05 White Blood Count 13.0x10^3/uL (4.0-11.0) Red Blood Count 1.83x10^6/uL (3.50-5.40) Hemoglobin 6.6g/dL (12.0-15.5) Hematocrit 19.2% (36.0-47.0) Mean Corpuscular Volume 105fL (79-100) Mean Corpuscular Hemoglobin 36pg (25-35) Mean Corpuscular Hemoglobin Concent 34g/dL (31-37) Red Cell Distribution Width 19.2% (11.5-14.5) Platelet Count 279x10^3/uL (140-400) Neutrophils (%) (Auto) 59% (31-73) Lymphocytes (%) (Auto) 22% (24-48) Monocytes (%) (Auto) 16% (0-9) Eosinophils (%) (Auto) 3% (0-3) Basophils (%) (Auto) 1% (0-3) Neutrophils # (Auto) 7.7x10^3uL (1.8-7.7) Lymphocytes # (Auto) 2.8x10^3/uL (1.0-4.8) Monocytes # (Auto) 2.0x10^3/uL (0.0-1.1) Eosinophils # (Auto) 0.4x10^3/uL (0.0-0.7) Basophils # (Auto) 0.1x10^3/uL (0.0-0.2) Sodium Level 143mmol/L (136-145) Potassium Level 3.9mmol/L (3.5-5.1) Chloride Level 107mmol/L (98-107) Carbon Dioxide Level 26mmol/L (21-32) Anion Gap 10 (6-14) Blood Urea Nitrogen 4mg/dL (7-20) Creatinine 0.6mg/dL (0.6-1.0) Estimated GFR (Cockcroft-Gault) 130.8 BUN/Creatinine Ratio 7 (6-20) Glucose Level 99mg/dL (70-99) Calcium Level 8.2mg/dL (8.5-10.1) Magnesium Level 1.5mg/dL (1.8-2.4) Total Bilirubin 2.5mg/dL (0.2-1.0) Aspartate Amino Transf (AST/SGOT) 42U/L (15-37) Alanine Aminotransferase (ALT/SGPT) 47U/L (14-59) Alkaline Phosphatase 74U/L (46-116) Total Protein 7.1g/dL (6.4-8.2) Albumin 3.4g/dL (3.4-5.0) Albumin/Globulin Ratio 0.9 (1.0-1.7) Meds Current Medications Albuterol/ Ipratropium (Duoneb) 3 ml QID NEB Last administered on 06/13/16 19: 29; Start 06/13/16 at 10:00 Guaifenesin (MUCINEX ER with DM) 1 tab BID PO Last administered on 06/13/16 21 :39; Start 06/13/16 at 10:00 Morphine Sulfate (Ms Contin) 15 mg STK-MED ONCE PO ; Start 06/13/16 at 08:50; Stop 06/13/16 at 09:11; Status DC Assessment Assessment 1. Acute sickle cell crisis. 2. Influenza A infection, improving. 3. Acute bronchitis. 4. Accelerated hypertension 5. Pulmonary hypertension. 6. Gastroesophageal reflux disease. 7. Anemia. SSD/B12 and folate 8. Iron overload from previous transfusions. 9. Chronic right ankle pain. PLAN: acute brochitis post influenzae A infection levaquin 500mg IV IV steroids begin duoneb nebulizer today 06/13 dc home with antibiotic/symbicort inhaler 06/14 leukocytosis admit WBC 15.9 06/14 13 SSC improved after IVFNS 100cc/hr and pain control anemia Admit Hgb 7.0 06/14 6.6 no transfusion unless <6.0 hematology consulted Liver iron overload disease LFTs improving. Admit AST 63 06/14 42 ALT 75 47 T bili 2.5 2.5 DVT/GI prophylaxis SCD/MARIYA pepcid For further plan of care, please refer to the orders. Plan Plan For more details regarding further plans, please refer to the orders. KIA SANTA MD 06/14/16 0925: IM PROGRESS NOTES- Assessment Assessment The patient was seen and examined by me. Chart reviewed and plan of care formulated. Discussed with, reviewed and agree with INTER COM INSTALLER's notes, plan of care and orders with modifications as necessary. Discharge Management - 35 minutes. ANNABELLA ARRINGTON APRN Jun 14, 2016 06:52 KIA SANTA MD Jun 14, 2016 09:25
--- NOTE | 2016-06-14 06:54 | DISCH ---
DISCHARGE DISCHARGE DATE: Jun 14, 2016 FINAL DIAGNOSIS Problems Medical Problems: (1) Sickle cell anemia with pain Status: Acute CONDITION ON DISCHARGE: Stable POST DISCHARGE ORDERS ACTIVITY ORDERS: Activity as tolerated WEIGHT BEARING STATUS: No restrictions DIET AFTER DISCHARGE: Cardiac WOUND/INCISION CARE: No wound care needed FOLLOW-UP PHYSICIAN FOLLOW-UP: Dr. Dalton Matta on Monday ANNABELLA ARRINGTON APRN Jun 14, 2016 06:54
[2016-06-14] MEDS ORDERED: BUDE10.2 IH (06:56)
[2016-06-14] MEDS ORDERED: LEVO500T38 PO (06:56)
[2016-06-14 07:00] VITALS: BP 125/67
--- NOTE | 2016-06-14 07:11 | PDOC3 ---
FRANCESCO-HILDAANNABELLA HAND CUTTER APPRENTICE 06/14/16 0711: IM DISCHARGE SUMMARY Date of Admission Date of Admission Date of Admission: Jun 12, 2016 at 03:54 Date of Discharge Date of Discharge 06/14/16 Primary Diagnosis Primary Diagnosis Assessment 1. Acute sickle cell crisis. 2. Influenza A infection, improving. 3. Acute bronchitis. 4. Accelerated hypertension 5. Pulmonary hypertension. 6. Gastroesophageal reflux disease. 7. Anemia. SSD/B12 and folate 8. Iron overload from previous transfusions. 9. Chronic right ankle pain. Problems: Consults Consults Buddy Ramirez MD Procedures Procedures None Labs Labs Laboratory Tests Test 06/12/16 02:52 06/12/16 06:00 06/12/16 16:50 06/13/16 04:35 White Blood Count 15.9x10^3/uL (4.0-11.0) 12.3x10^3/uL (4.0-11.0) Red Blood Count 1.94x10^6/uL (3.50-5.40) 1.88x10^6/uL (3.50-5.40) Hemoglobin 7.0g/dL (12.0-15.5) 6.7g/dL (12.0-15.5) Hematocrit 19.8% (36.0-47.0) 19.6% (36.0-47.0) Mean Corpuscular Volume 102fL (79-100) 105fL (79-100) Mean Corpuscular Hemoglobin 36pg (25-35) 36pg (25-35) Mean Corpuscular Hemoglobin Concent 35g/dL (31-37) 34g/dL (31-37) Red Cell Distribution Width 19.8% (11.5-14.5) 18.6% (11.5-14.5) Platelet Count 282x10^3/uL (140-400) 294x10^3/uL (140-400) Neutrophils (%) (Auto) 50% (31-73) 40% (31-73) Lymphocytes (%) (Auto) 35% (24-48) 40% (24-48) Monocytes (%) (Auto) 14% (0-9) 15% (0-9) Eosinophils (%) (Auto) 1% (0-3) 3% (0-3) Basophils (%) (Auto) 1% (0-3) 1% (0-3) Neutrophils # (Auto) 8.0x10^3uL (1.8-7.7) 5.0x10^3uL (1.8-7.7) Lymphocytes # (Auto) 5.5x10^3/uL (1.0-4.8) 5.0x10^3/uL (1.0-4.8) Monocytes # (Auto) 2.2x10^3/uL (0.0-1.1) 1.9x10^3/uL (0.0-1.1) Eosinophils # (Auto) 0.2x10^3/uL (0.0-0.7) 0.4x10^3/uL (0.0-0.7) Basophils # (Auto) 0.1x10^3/uL (0.0-0.2) 0.1x10^3/uL (0.0-0.2) Platelet Estimate Adequate (ADEQUATE) Adequate (ADEQUATE) Giant Platelets Few Polychromasia Mod Anisocytosis Slight Slight Sickle Cells Many Mod Target Cells Few Few Tear Drop Cells Occ Occ Reticulocyte Count (auto) 4.4% (0.5-2.5) Sodium Level 146mmol/L (136-145) 144mmol/L (136-145) Potassium Level 4.1mmol/L (3.5-5.1) 4.2mmol/L (3.5-5.1) Chloride Level 111mmol/L (98-107) 109mmol/L (98-107) Carbon Dioxide Level 24mmol/L (21-32) 24mmol/L (21-32) Anion Gap 11 (6-14) 11 (6-14) Blood Urea Nitrogen 9mg/dL (7-20) 4mg/dL (7-20) Creatinine 0.7mg/dL (0.6-1.0) 0.6mg/dL (0.6-1.0) Estimated GFR (Cockcroft-Gault) 109.5 130.8 BUN/Creatinine Ratio 13 (6-20) 7 (6-20) Glucose Level 131mg/dL (70-99) 96mg/dL (70-99) Calcium Level 8.3mg/dL (8.5-10.1) 8.1mg/dL (8.5-10.1) Total Bilirubin 2.5mg/dL (0.2-1.0) 1.6mg/dL (0.2-1.0) Aspartate Amino Transf (AST/SGOT) 63U/L (15-37) 41U/L (15-37) Alanine Aminotransferase (ALT/SGPT) 75U/L (14-59) 56U/L (14-59) Alkaline Phosphatase 85U/L (46-116) 61U/L (46-116) Total Protein 7.7g/dL (6.4-8.2) 7.0g/dL (6.4-8.2) Albumin 3.7g/dL (3.4-5.0) 3.2g/dL (3.4-5.0) Albumin/Globulin Ratio 0.9 (1.0-1.7) 0.8 (1.0-1.7) Influenza Type A Antigen Negative (NEGATIVE) Influenza Type B Antigen Negative (NEGATIVE) Urine Collection Type Unknown Urine Color Yellow Urine Clarity Clear Urine pH 6.0 Urine Specific Sutton <=1.005 Urine Protein Negativemg/dL (NEG-TRACE) Urine Glucose (UA) Negativemg/dL (NEG) Urine Ketones (Stick) Negativemg/dL (NEG) Urine Blood Negative (NEG) Urine Nitrite Negative (NEG) Urine Bilirubin Negative (NEG) Urine Urobilinogen Dipstick 0.2mg/dL (0.2 mg/dL) Urine Leukocyte Esterase Negative (NEG) Urine RBC 0/HPF (0-2) Urine WBC Occ/HPF (0-4) Urine Squamous Epithelial Cells Few/LPF Urine Bacteria Few/HPF (0-FEW) Segmented Neutrophils % 31% (35-66) Lymphocytes % 49% (24-48) Monocytes % 18% (0-10) Eosinophils % 2% (0-5) Nucleated Red Blood Cells 9 Toxic Vacuolation Present Poikilocytosis Present Test 06/14/16 03:05 White Blood Count 13.0x10^3/uL (4.0-11.0) Red Blood Count 1.83x10^6/uL (3.50-5.40) Hemoglobin 6.6g/dL (12.0-15.5) Hematocrit 19.2% (36.0-47.0) Mean Corpuscular Volume 105fL (79-100) Mean Corpuscular Hemoglobin 36pg (25-35) Mean Corpuscular Hemoglobin Concent 34g/dL (31-37) Red Cell Distribution Width 19.2% (11.5-14.5) Platelet Count 279x10^3/uL (140-400) Neutrophils (%) (Auto) 59% (31-73) Lymphocytes (%) (Auto) 22% (24-48) Monocytes (%) (Auto) 16% (0-9) Eosinophils (%) (Auto) 3% (0-3) Basophils (%) (Auto) 1% (0-3) Neutrophils # (Auto) 7.7x10^3uL (1.8-7.7) Lymphocytes # (Auto) 2.8x10^3/uL (1.0-4.8) Monocytes # (Auto) 2.0x10^3/uL (0.0-1.1) Eosinophils # (Auto) 0.4x10^3/uL (0.0-0.7) Basophils # (Auto) 0.1x10^3/uL (0.0-0.2) Sodium Level 143mmol/L (136-145) Potassium Level 3.9mmol/L (3.5-5.1) Chloride Level 107mmol/L (98-107) Carbon Dioxide Level 26mmol/L (21-32) Anion Gap 10 (6-14) Blood Urea Nitrogen 4mg/dL (7-20) Creatinine 0.6mg/dL (0.6-1.0) Estimated GFR (Cockcroft-Gault) 130.8 BUN/Creatinine Ratio 7 (6-20) Glucose Level 99mg/dL (70-99) Calcium Level 8.2mg/dL (8.5-10.1) Magnesium Level 1.5mg/dL (1.8-2.4) Total Bilirubin 2.5mg/dL (0.2-1.0) Aspartate Amino Transf (AST/SGOT) 42U/L (15-37) Alanine Aminotransferase (ALT/SGPT) 47U/L (14-59) Alkaline Phosphatase 74U/L (46-116) Total Protein 7.1g/dL (6.4-8.2) Albumin 3.4g/dL (3.4-5.0) Albumin/Globulin Ratio 0.9 (1.0-1.7) Brief hospital course Brief hospital course This 45 year old female who presented with acute bronchitis post influenzae viral infection was admitted. The following is a summary of the treatment: acute brochitis post influenzae A infection levaquin 500mg IV IV steroids begin duoneb nebulizer today 06/13 dc home with antibiotic/symbicort inhaler 06/14 leukocytosis admit WBC 15.9 06/14 13 SSC improved after IVFNS 100cc/hr and pain control anemia Admit Hgb 7.0 06/14 6.6 no transfusion unless <6.0 hematology consulted Liver iron overload disease LFTs improving. Admit AST 63 06/14 42 ALT 75 47 T bili 2.5 2.5 DVT/GI prophylaxis SCD/MARIYA pepcid For more details regarding the past history, family history, social history, surgical history and other details, please refer to History and Physical. She will be discharged home and follow up Monday in the office. Please see discharge orders and meds,. Medications Medications reviewed and reconciled for discharge. Allergy Allergies Coded Allergies Type Severity Reaction Last Updated Verified Penicillins Allergy Intermediate Rash 08/05/14 Yes bacitracin Allergy Intermediate Rash 08/05/14 Yes bacitracin zinc Allergy Intermediate Rash 08/05/14 Yes clindamycin Allergy Intermediate Rash 08/05/14 Yes neomycin sulfate Allergy Intermediate Rash 08/05/14 Yes polymyxin B Allergy Intermediate Rash 08/05/14 Yes silver sulfadiazine Allergy Intermediate 07/13/15 Yes sulfamethoxazole Allergy Intermediate 02/07/15 Yes trimethoprim Allergy Intermediate 02/07/15 Yes diltiazem Allergy Mild hives 03/02/16 Yes fentanyl Adverse Reaction Intermediate CAUSE SEVERE HEADACHE AND N/V 02/07/15 Yes Follow up in 5 days. DISPOSITION: Home Comments Discharge Management - 35 minutes. For other details please refer to discharge instructions KIA SANTA MD 06/14/16 0927: IM DISCHARGE SUMMARY Brief hospital course Comments The patient was seen and examined by me. Chart reviewed and plan of care formulated. Discussed with, reviewed and agree with SALES REPRESENTATIVE [employer]ATHER [employer]'s notes, plan of care and orders with modifications as necessary. Discharge Management - 35 minutes. script- MS Contin 15 mg bid #60.Roxicodone 10 mg Q6H #120 given to the patient. ANNABELLA ARRINGTON APRN Jun 14, 2016 07:11 KIA SANTA MD Jun 14, 2016 09:27
[2016-06-14] MEDS: IPRATRPIUM/ALBUTEROL 0.5/2.5MG 3 ML NEBU. NEB SCH (07:15)
[2016-06-14] MEDS: GUAIFENESIN DM 600/30MG TAB.ER.12H. PO SCH (08:14)
[2016-06-14] MEDS: FOLIC ACID 1 MG TABLET PO SCH (08:14)
[2016-06-14] MEDS: CYANOCOBALAMIN (VITAMIN B-12) 1,000 MCG TABLET. PO SCH (08:14)
[2016-06-14 08:15] VITALS: BP 125/67
[2016-06-14] MEDS: METOPROLOL TART IMMED RELEASE 25 MG TABLET PO SCH (08:15)
[2016-06-14] MEDS: MORPHINE ER 15 MG TABLET.ER PO SCH (08:15)
[2016-06-14] MEDS: FLUTICASONE 50MCG/NASAL SPRAY 16GM BOTTLE. NS SCH (08:16)
[2016-06-14] MEDS: HYDROXYUREA 500 MG CAPSULE PO SCH (08:20)
--- NOTE | 2016-06-14 09:00 | PDOC ---
Subjective: Subjective: Heme f/u- SCD Pt with same cough, unchanged. No SOB, CP, abd pain, diarrhea. Objective: Vital Signs: Vital Signs Date Time Temp Pulse Resp B/P Pulse Ox O2 Delivery O2 Flow Rate FiO2 06/14/16 08:15 82 125/67 06/14/16 07:16 92 Room Air 06/14/16 07:00 98.4 14 2.0 98.4 Physical Exam: Heart: Regular rate Extremities: No edema General: Alert, Oriented X3, Cooperative, No acute distress Lungs: Normal air movement Psych/Mental Status: Mental status NL, Mood NL Labs/Imaging: CBC unchanged, hgb 7.2 Assessment/Plan A/P: 1. Sickle cell disease with crises related to influenza A last week - Improved with supportive care, IVF - Continue hydrea, folic acid at home - Hgb baseline ~8, please limit transfusions for hgb < 6 to avoid further iron overload. Stable clinically today. - F/u with me as planned in clinic 2. Iron overload - Avoid transfusions as able - On Exjade as outpt. 3. Leukocytosis, elevated Bili stable and very typical of sickle cell pts. ANTONIETA BAILEY DO Jun 14, 2016 09:00
== END 2016-06-14 10:44 | disposition home or self-care (01) | DRG 152 ==
LOC: ER 02:19 → 4 NORTH 03:54
PROVIDERS: ADMIT Internal Medicine; ATTEND Internal Medicine
DX: J11.1 Influenza due to unidentified influenza virus with other respiratory manifestations (principal); D57.00 Hb-SS disease with crisis, unspecified; I10 Essential (primary) hypertension; I27.2 Other secondary pulmonary hypertension; J20.9 Acute bronchitis, unspecified; K21.9 Gastro-esophageal reflux disease without esophagitis; M10.9 Gout, unspecified; Z82.49 Family history of ischemic heart disease and other diseases of the circulatory system; Z88.1 Allergy status to other antibiotic agents; Z90.49 Acquired absence of other specified parts of digestive tract; Z88.0 Allergy status to penicillin; Z88.2 Allergy status to sulfonamides; Z88.8 Allergy status to other drugs, medicaments and biological substances; Z79.899 Other long term (current) drug therapy
CPT/HCPCS: 36415; 71020; 80053; 81001; 83735; 85007; 85027; 85045; 87804; 90732; 94250; 94640; 94760; 96361; 96374; J1170; J1956; J2550; J7030; J7620; 99285-25

== ENCOUNTER 2016-07-08 14:54 | Emergency (ER) | payer MEDICARE ==
[~2016-07-08] VITALS: Ht 175.3 cm; Wt 72.6 kg
[~2016-07-08 14:54] MED LIST changes: +BUDE10.2 IH; +LEVO500T38 PO
[2016-07-08 15:08] VITALS: BP 144/76
[2016-07-08] MEDS ORDERED: NAPROXEN 500 MG TABLET PO STA (15:10)
--- NOTE | 2016-07-08 15:15 | PHYS DOC ---
Past Medical History Past Medical History: Sickle Cell Disease Additional Past Medical Histor: sickle cell Past Surgical History: Cholecystectomy Alcohol Use: None Drug Use: None Adult General Chief Complaint Chief Complaint: LOWER EXT PAIN HPI HPI Patient is a 45 year old female with history of sickle cell disease who presents today with mild left medial knee pain that began last night. Patient denies any known injury. Patient states the pain is worse when she is ambulating. Review of Systems Review of Systems Constitutional: Denies fever or chills [] Eyes: Denies change in visual acuity, redness, or eye pain [] Musculoskeletal: Left knee pain Integument: Denies rash or skin lesions [] Neurologic: Denies headache, focal weakness or sensory changes [] Endocrine: Denies polyuria or polydipsia [] Current Medications Current Medications Current Medications Medications (Trade) Dose Ordered Sig/Nilda Start Time Stop Time Status Last Admin Dose Admin Naproxen (Naprosyn) 500 mg 1X STAT 07/08/16 15:10 07/08/16 15:14 DC 07/08/16 15:19 500 MG Allergies Allergies Allergies Coded Allergies Type Severity Reaction Last Updated Verified Penicillins Allergy Intermediate Rash 08/05/14 Yes bacitracin Allergy Intermediate Rash 08/05/14 Yes bacitracin zinc Allergy Intermediate Rash 08/05/14 Yes clindamycin Allergy Intermediate Rash 08/05/14 Yes neomycin sulfate Allergy Intermediate Rash 08/05/14 Yes polymyxin B Allergy Intermediate Rash 08/05/14 Yes silver sulfadiazine Allergy Intermediate 07/13/15 Yes sulfamethoxazole Allergy Intermediate 02/07/15 Yes trimethoprim Allergy Intermediate 02/07/15 Yes diltiazem Allergy Mild hives 03/02/16 Yes fentanyl Adverse Reaction Intermediate CAUSE SEVERE HEADACHE AND N/V 02/07/15 Yes Physical Exam Physical Exam Constitutional: Well developed, well nourished, no acute distress, non-toxic appearance. [] HENT: Normocephalic, atraumatic, bilateral external ears normal, oropharynx moist, no oral exudates, nose normal. [] Eyes: PERRLA, EOMI, conjunctiva normal, no discharge. Skin: Warm, dry, no erythema, no rash. [] Back: No tenderness, no CVA tenderness. [] Extremities: Left anterior medial knee with small amount of soft tissue swelling , no ecchymosis noted. Tenderness on palpation diffusely over left anterior knee. Full range of motion to the left knee, negative Cynthia sign and negative Reena's sign negative anterior-posterior drawer sign to the left knee.. Cap refill < 2 seconds the left lower extremity. Sensation intact to the left lower extremity. +2 left pedal pulse Neurologic: Alert and oriented X 3, normal motor function, normal sensory function, no focal deficits noted. [] Psychologic: Affect normal, judgement normal, mood normal. [] Current Patient Data Vital Signs Vital Signs Date Time Temp Pulse Resp B/P Pulse Ox O2 Delivery O2 Flow Rate FiO2 07/08/16 15:08 98.1 81 14 98 Room Air 98.1 EKG EKG [] Radiology/Procedures Radiology/Procedures []PROCEDURE: KNEE LEFT 4V Left knee with patella, 4 views, 07/08/2016: History: Increasing pain No acute fracture is identified. There is moderate degenerative change at the patellofemoral articulation. The tangential patellar view demonstrates lateral subluxation of the patella relative to the trochlear groove, likely chronic or recurrent. IMPRESSION: Moderate patellofemoral degenerative change with lateral subluxation of the patella. DICTATED and SIGNED BY: ILEANA OLUIE MD DATE: 07/08/16 1542 CC: CAROLYN EL APRN; KIA SANTA MD ~ Course & Med Decision Making Course & Med Decision Making Pertinent Labs and Imaging studies reviewed. (See chart for details) Patient is in the ED with left knee pain, no known injury. Left knee x-ray interpreted by the radiologist is noted for moderate patellofemoral degenerative changes with lateral subluxation of the patella. Spoke to patient about this finding. I recommended following up with an orthopedic doctor on Monday which I provided. Patient was placed in an immobilizer by the ED RN, neurovascular exam done by me is normal, cap refill less than 2 seconds. Ice elevation encouraged. Dragon Disclaimer Dragon Disclaimer This electronic medical record was generated, in whole or in part, using a voice recognition dictation system. Departure Departure Impression: Primary Impression: Subluxation of left patella Additional Impressions: Knee pain, left Left knee DJD Disposition: HOME, SELF-CARE Condition: STABLE Referrals: KIA SANTA MD (PCP) WILMER ROACH MD Follow-up with the provided orthopedic doctor on [place] Patient Instructions: Arthritis, Nonspecific, Knee - Patella Problems Additional Instructions: Your left knee x-ray was noted for degenerative changes as well as subluxation of the patella where the patellar is not lined right. We put you in an immobilizer. We highly recommend you also ice and elevate the extremity. We highly recommend you follow-up with the provided orthopedic doctor on Monday. Scripts Hydrocodone/Apap 5-325 ([place] 5-325 Tablet)1 Each Tablet1-2 Tab PO Q4-6HRS #14 TAB Prov:CAROLYN EL APRN 07/08/16 Problem Qualifiers Primary Impression: Subluxation of left patella Encounter type: initial encounter Qualified Code: S83.002A - Unspecified subluxation of left patella, initial encounter Additional Impressions: Knee pain, left Chronicity: acute Qualified Code: M25.562 - Pain in left knee Left knee DJD Osteoarthritis type: primary Qualified Code: M17.12 - Unilateral primary osteoarthritis, left knee CAROLYN EL APRN Jul 08, 2016 15:15
--- NOTE | 2016-07-08 15:49 | RAD ---
Left knee with patella, 4 views, 07/08/2016: History: Increasing pain No acute fracture is identified. There is moderate degenerative change at the patellofemoral articulation. The tangential patellar view demonstrates lateral subluxation of the patella relative to the trochlear groove, likely chronic or recurrent. IMPRESSION: Moderate patellofemoral degenerative change with lateral subluxation of the patella.
[2016-07-08] MEDS ORDERED: HYDR-971 PO (16:08)
== END 2016-07-08 16:16 | disposition home or self-care (01) ==
LOC: ER 14:54
DX: S83.012A Lateral subluxation of left patella, initial encounter (principal); M17.12 Unilateral primary osteoarthritis, left knee; D57.1 Sickle-cell disease without crisis; Z88.0 Allergy status to penicillin; Z88.1 Allergy status to other antibiotic agents; Z88.2 Allergy status to sulfonamides; Z88.8 Allergy status to other drugs, medicaments and biological substances; Z88.4 Allergy status to anesthetic agent; X58.XXXA Exposure to other specified factors, initial encounter; Y93.89 Activity, other specified; Y92.89 Other specified places as the place of occurrence of the external cause; Y99.8 Other external cause status
CPT/HCPCS: 29505; 73564; 99284-25

== ENCOUNTER → 2016-10-25 | Outpatient (CLI) | payer MEDICARE ==
[2016-10-24 08:48] VITALS: BP 122/76
[~2016-10-25] MED LIST changes: +CEFP100T PO; +DOXY100T PO; +HYDR-971 PO; +HYDR500C16 PO; -HYDR500C3 PO; -LANS15CA66 PO; +LANS15CA78 PO; -LEVO500T38 PO; +LEVO500T59 PO; -OXYC-250 PO; +OXYC-328 PO; +SENN-37 PO
== END | disposition home or self-care (01) ==
LOC: PMGWOUND 09:00
PROVIDERS: ATTEND Emergency Medicine Undersea and Hyperbaric Medicine
DX: I87.311 Chronic venous hypertension (idiopathic) with ulcer of right lower extremity (principal); L97.311 Non-pressure chronic ulcer of right ankle limited to breakdown of skin; L97.211 Non-pressure chronic ulcer of right calf limited to breakdown of skin; K21.9 Gastro-esophageal reflux disease without esophagitis; M19.90 Unspecified osteoarthritis, unspecified site; Z88.1 Allergy status to other antibiotic agents; Z88.0 Allergy status to penicillin; Z88.2 Allergy status to sulfonamides; Z88.8 Allergy status to other drugs, medicaments and biological substances; Z86.14 Personal history of Methicillin resistant Staphylococcus aureus infection
CPT/HCPCS: 97597

== ENCOUNTER → 2016-10-28 | Outpatient (CLI) | payer MEDICARE ==
[2016-10-24 08:48] VITALS: BP 122/76
== END | disposition home or self-care (01) ==
LOC: PMGWOUND 09:05
PROVIDERS: ATTEND Preventive Medicine Undersea and Hyperbaric Medicine
DX: I87.311 Chronic venous hypertension (idiopathic) with ulcer of right lower extremity (principal); L97.211 Non-pressure chronic ulcer of right calf limited to breakdown of skin; K21.9 Gastro-esophageal reflux disease without esophagitis; M10.9 Gout, unspecified; M19.90 Unspecified osteoarthritis, unspecified site
CPT/HCPCS: 29580; 97597

== ENCOUNTER → 2016-10-31 | Outpatient (CLI) | payer MEDICARE ==
[2016-10-24 08:48] VITALS: BP 122/76
== END | disposition home or self-care (01) ==
LOC: PMGWOUND 07:44
PROVIDERS: ATTEND Emergency Medicine Undersea and Hyperbaric Medicine
DX: I87.311 Chronic venous hypertension (idiopathic) with ulcer of right lower extremity (principal); L97.311 Non-pressure chronic ulcer of right ankle limited to breakdown of skin; L97.211 Non-pressure chronic ulcer of right calf limited to breakdown of skin; K21.9 Gastro-esophageal reflux disease without esophagitis; M19.90 Unspecified osteoarthritis, unspecified site; Z86.14 Personal history of Methicillin resistant Staphylococcus aureus infection; Z88.0 Allergy status to penicillin; Z88.1 Allergy status to other antibiotic agents; Z88.8 Allergy status to other drugs, medicaments and biological substances
CPT/HCPCS: 29580

== ENCOUNTER → 2016-11-07 | Outpatient (CLI) | payer MEDICARE ==
[2016-10-24 08:48] VITALS: BP 122/76
== END | disposition home or self-care (01) ==
LOC: PMGWOUND 13:56
PROVIDERS: ATTEND Emergency Medicine Undersea and Hyperbaric Medicine
DX: I87.311 Chronic venous hypertension (idiopathic) with ulcer of right lower extremity (principal); L97.311 Non-pressure chronic ulcer of right ankle limited to breakdown of skin; K21.9 Gastro-esophageal reflux disease without esophagitis; M19.90 Unspecified osteoarthritis, unspecified site; Z86.14 Personal history of Methicillin resistant Staphylococcus aureus infection
CPT/HCPCS: 29580; 97597; 97598

== ENCOUNTER → 2016-11-10 | Outpatient (CLI) | payer MEDICARE ==
[2016-10-24 08:48] VITALS: BP 122/76
== END | disposition home or self-care (01) ==
LOC: PMGWOUND 14:15
PROVIDERS: ATTEND Emergency Medicine Undersea and Hyperbaric Medicine
DX: I87.311 Chronic venous hypertension (idiopathic) with ulcer of right lower extremity (principal); L97.211 Non-pressure chronic ulcer of right calf limited to breakdown of skin; L97.311 Non-pressure chronic ulcer of right ankle limited to breakdown of skin; K21.9 Gastro-esophageal reflux disease without esophagitis; M19.90 Unspecified osteoarthritis, unspecified site; I10 Essential (primary) hypertension; Z88.0 Allergy status to penicillin; Z88.1 Allergy status to other antibiotic agents; Z88.2 Allergy status to sulfonamides; Z88.8 Allergy status to other drugs, medicaments and biological substances; Z86.14 Personal history of Methicillin resistant Staphylococcus aureus infection
CPT/HCPCS: 29580

== ENCOUNTER → 2016-11-14 | Outpatient (CLI) | payer MEDICARE ==
[2016-10-24 08:48] VITALS: BP 122/76
== END | disposition home or self-care (01) ==
LOC: PMGWOUND 14:10
PROVIDERS: ATTEND Emergency Medicine Undersea and Hyperbaric Medicine
DX: I87.311 Chronic venous hypertension (idiopathic) with ulcer of right lower extremity (principal); L97.311 Non-pressure chronic ulcer of right ankle limited to breakdown of skin; K21.9 Gastro-esophageal reflux disease without esophagitis; Z86.14 Personal history of Methicillin resistant Staphylococcus aureus infection; M19.90 Unspecified osteoarthritis, unspecified site; M10.9 Gout, unspecified
CPT/HCPCS: 29581; 87071; 87075; 87186; 87205; 97597; 97598

== ENCOUNTER → 2016-11-17 | Outpatient (CLI) | payer MEDICARE ==
[2016-10-24 08:48] VITALS: BP 122/76
== END | disposition home or self-care (01) ==
LOC: PMGWOUND 07:51
PROVIDERS: ATTEND Emergency Medicine Undersea and Hyperbaric Medicine
DX: I87.311 Chronic venous hypertension (idiopathic) with ulcer of right lower extremity (principal); L97.211 Non-pressure chronic ulcer of right calf limited to breakdown of skin; K21.9 Gastro-esophageal reflux disease without esophagitis; Z86.14 Personal history of Methicillin resistant Staphylococcus aureus infection; M19.90 Unspecified osteoarthritis, unspecified site
CPT/HCPCS: 99214

== ENCOUNTER 2016-11-20 08:45 | Emergency (ER) | payer MEDICARE ==
[~2016-11-20] VITALS: Ht 175.3 cm; Wt 68.0 kg
[2016-11-20] MEDS ORDERED: SODIUM HYPOCHLORITE 0.25% 473 ML BOTTLE. TP ONE (09:15)
[2016-11-20] MEDS ORDERED: oxyCODONE/APAP 10/325 1 TAB TABLET PO ONE (09:15)
[2016-11-20] MEDS ORDERED: MORPHINE ER 15 MG TABLET.ER PO ONE (09:15)
[2016-11-20] MEDS ORDERED: DIPHTH,PERTUSS(ACELL),TET TOX 0.5 ML DISP.SYRIN. VAX IM ONE (09:30)
--- NOTE | 2016-11-20 09:44 | ED.ADGEN ---
Past Medical History Past Medical History: Sickle Cell Disease, Other Additional Past Medical Histor: wound related to sickle cell Past Surgical History: Cholecystectomy Alcohol Use: None Drug Use: None Adult General Chief Complaint Chief Complaint: LOWER EXTREMITY SWELLING HPI HPI Patient is a 46 year old woman, history of sickle cell disease, with a chronic wound on her right ankle which is being treated at the wound clinic. Patient states that she woke this morning and was experiencing increased swelling above the wound site, states that the pain is experiencing is in line with her typical but the swelling was new. She denies any injuries, any fevers or chills , any nausea or vomiting, any shortness of breath or chest pain, any change in activities or in footwear or any other triggering type symptoms. Patient denies similar symptoms previously. Patient states that she is using Dakin's with dressing changes, this was a change twice daily, but steadily change in once daily. She is taking her home pain medications, states she did not take them today. She is also taking doxycycline as directed by the wound clinic. Review of Systems Review of Systems Constitutional: Denies fever or chills. [] Eyes: Denies change in visual acuity. [] HENT: Denies nasal congestion or sore throat. [] Respiratory: Denies cough or shortness of breath. [] Cardiovascular: Denies chest pain or edema. [] GI: Denies abdominal pain, nausea, vomiting, bloody stools or diarrhea. [] : Denies dysuria. [] Musculoskeletal: Denies back pain, increased swelling in the right lower extremity. Integument: Denies rash. [] Neurologic: Denies headache, focal weakness or sensory changes. [] Endocrine: Denies polyuria or polydipsia. [] Lymphatic: Denies swollen glands. [] Psychiatric: Denies depression or anxiety. [] Current Medications Current Medications Current Medications Medications (Trade) Dose Ordered Sig/Nilda Start Time Stop Time Status Last Admin Dose Admin Diphtheria/ Tetanus/Acell Pertussis (Boostrix) 0.5 ml ONCE ONCE 11/20/16 09:30 11/20/16 09:31 DC 11/20/16 09:43 0.5 ML Morphine Sulfate (Ms Contin) 15 mg 1X ONCE 11/20/16 09:15 11/20/16 09:20 DC 11/20/16 09:42 15 MG Oxycodone/ Acetaminophen (Percocet 10/325) 1 tab 1X ONCE 11/20/16 09:15 11/20/16 09:19 DC 11/20/16 09:42 1 TAB Sodium Hypochlorite (Dakin'S 1/2 Strength) 1 silas 1X ONCE 11/20/16 09:15 11/20/16 09:20 DC 11/20/16 09:43 1 SILAS Allergies Allergies Allergies Coded Allergies Type Severity Reaction Last Updated Verified Penicillins Allergy Intermediate Rash 08/05/14 Yes bacitracin Allergy Intermediate Rash 08/05/14 Yes bacitracin zinc Allergy Intermediate Rash 08/05/14 Yes clindamycin Allergy Intermediate Rash 08/05/14 Yes neomycin sulfate Allergy Intermediate Rash 08/05/14 Yes polymyxin B Allergy Intermediate Rash 08/05/14 Yes silver sulfadiazine Allergy Intermediate 07/13/15 Yes sulfamethoxazole Allergy Intermediate 02/07/15 Yes trimethoprim Allergy Intermediate 02/07/15 Yes diltiazem Allergy Mild hives 03/02/16 Yes fentanyl Adverse Reaction Intermediate CAUSE SEVERE HEADACHE AND N/V 02/07/15 Yes Physical Exam Physical Exam Constitutional: Well developed, well nourished, no acute distress, non-toxic appearance. [] HENT: Normocephalic, atraumatic, bilateral external ears normal, oropharynx moist, no oral exudates, nose normal. [] Eyes: PERRLA, EOMI, conjunctiva normal, no discharge. [] Neck: Normal range of motion, no tenderness, supple, no stridor. [] Cardiovascular:Heart rate regular rhythm, no murmur, S1, S2, rubs or gallops. [] Lungs & Thorax: Bilateral breath sounds clear to auscultation, no wheezing, rhonchi, rales. No chest wall crepitus or tenderness. [] Abdomen: Bowel sounds normal, soft, no tenderness, no masses, no pulsatile masses. [] Skin: Warm, dry, no erythema, no rash. [] Back: No tenderness, no CVA tenderness. [] Extremities: Patient with a 5 cm x 5 cm area of healing wound over the medial aspect of the right ankle, noted to have granulation tissue, and a small amount of drainage, dressing change in the emergency department without issue, no evidence of acute injury, patient state wound appearance is unchanged, patient is complaining of a slight amount of swelling and pain in the anterior tibial and posterior tibial region, in the calf, noted to have mild swelling in this area but no pitting edema, no other lesions or abnormality identified no cyanosis, no clubbing, ROM intact, no edema. [] Neurologic: Alert and oriented X 3, normal motor function, normal sensory function, no focal deficits noted. [] Psychologic: Affect normal, judgement normal, mood normal. [] Current Patient Data Vital Signs Vital Signs Date Time Temp Pulse Resp B/P (MAP) Pulse Ox O2 Delivery O2 Flow Rate FiO2 11/20/16 10:30 66 18 118/73 (88) 95 11/20/16 08:55 98.5 Room Air 98.5 EKG EKG Not indicated. [] Radiology/Procedures Radiology/Procedures [][facility] [address] [place] [address] IMAGING REPORT Signed PATIENT: JERILYN MUÑOZ ACCOUNT: [id number] : 1970 LOCATION: ER AGE: 46 SEX: F EXAM STATUS: PRE ER ORD. PHYSICIAN: DIONTE WALKER DO REASON: Swelling/pain, healing chronic wound PROCEDURE: VENOUS LOWER EXTREMITY RIGHT Indication right leg pain and swelling. Grayscale color Doppler and spectral imaging was performed. Examination was targeted to the veins of the right lower extremity. The common femoral, femoral and popliteal vessels demonstrate normal flow compressibility and augmentation. No thrombus is seen. The visualized calf vessels appeared unremarkable. The left common femoral vein also appeared normal. Some adenopathy was noted in the right groin during the examination. A lymph node measuring 4.2 cm was noted. IMPRESSION: Negative right lower extremity venous analysis for DVT DICTATED and SIGNED BY: MARYBETH ARRIOLA MD DATE: 11/20/16 1012 CC: DIONTE WALKER DO; KIA SANTA MD ~ Course & Med Decision Making Course & Med Decision Making Pertinent Labs and Imaging studies reviewed. (See chart for details) [] Ultrasound ordered to rule out DVT as source of patient's mild swelling and discomfort. The "knot", which patient noted early this morning has resolved is located in the anterior portion of the tibia. Ultrasound does not reveal evidence of acute DVT, does note some lymphadenopathy, however patient does have chronic wound in this area. There is no evidence of acutely worsening infection, or other concerning findings, and patient denies any other complaints , is resting comfortably after receiving her home medications. Some drainage noted when wound dressing change was made in the ED, however patient's examination shows granulation tissue. There are no acutely concerning findings identified during her evaluation today. Patient instructed to follow-up with wound management on as scheduled, importance of following instructions and changing dressing twice daily discussed in detail with patient, as stated she is currently only changing dressings once daily. We also discussed concerning symptoms that prompt return to the emergency department for additional evaluation. Patient voiced understanding and agreement. Patient has her doxycycline and her pain medications at home, discharged home in stable condition with plan and precautions as above. Dragon Disclaimer Dragon Disclaimer This electronic medical record was generated, in whole or in part, using a voice recognition dictation system. Departure Impression: Primary Impression: Wound pain Additional Impression: Left leg swelling Disposition: HOME, SELF-CARE Condition: IMPROVED Problem Qualifiers DIONTE WALKER DO Nov 20, 2016 09:44
--- NOTE | 2016-11-20 10:16 | RAD ---
Indication right leg pain and swelling. Grayscale color Doppler and spectral imaging was performed. Examination was targeted to the veins of the right lower extremity. The common femoral, femoral and popliteal vessels demonstrate normal flow compressibility and augmentation. No thrombus is seen. The visualized calf vessels appeared unremarkable. The left common femoral vein also appeared normal. Some adenopathy was noted in the right groin during the examination. A lymph node measuring 4.2 cm was noted. IMPRESSION: Negative right lower extremity venous analysis for DVT
[2016-11-20 10:30] VITALS: BP 118/73
== END 2016-11-20 10:45 | disposition home or self-care (01) ==
LOC: ER 08:45
DX: M25.571 Pain in right ankle and joints of right foot (principal); R22.41 Localized swelling, mass and lump, right lower limb; Z88.0 Allergy status to penicillin; Z88.4 Allergy status to anesthetic agent; Z88.1 Allergy status to other antibiotic agents; Z88.8 Allergy status to other drugs, medicaments and biological substances
CPT/HCPCS: 90471; 90715; 93971; 99284-25

== ENCOUNTER → 2016-11-24 | Outpatient (CLI) | payer MEDICARE ==
[2016-11-20 10:30] VITALS: BP 118/73
== END | disposition home or self-care (01) ==
LOC: PMGWOUND 13:34
PROVIDERS: ATTEND Emergency Medicine Undersea and Hyperbaric Medicine
DX: I87.311 Chronic venous hypertension (idiopathic) with ulcer of right lower extremity (principal); L97.211 Non-pressure chronic ulcer of right calf limited to breakdown of skin; D57.00 Hb-SS disease with crisis, unspecified; K21.9 Gastro-esophageal reflux disease without esophagitis; M19.90 Unspecified osteoarthritis, unspecified site; I10 Essential (primary) hypertension; Z88.4 Allergy status to anesthetic agent; Z88.8 Allergy status to other drugs, medicaments and biological substances; Z88.0 Allergy status to penicillin; Z88.1 Allergy status to other antibiotic agents; Z88.2 Allergy status to sulfonamides; Z86.14 Personal history of Methicillin resistant Staphylococcus aureus infection; Z90.49 Acquired absence of other specified parts of digestive tract
CPT/HCPCS: 97597; 97598

== ENCOUNTER → 2016-11-29 | Outpatient (CLI) | payer MEDICARE ==
[2016-11-20 10:30] VITALS: BP 118/73
== END | disposition home or self-care (01) ==
LOC: PMGWOUND 10:31
PROVIDERS: ATTEND Emergency Medicine Undersea and Hyperbaric Medicine
DX: I87.311 Chronic venous hypertension (idiopathic) with ulcer of right lower extremity (principal); L97.311 Non-pressure chronic ulcer of right ankle limited to breakdown of skin; L03.116 Cellulitis of left lower limb; K21.9 Gastro-esophageal reflux disease without esophagitis; M19.90 Unspecified osteoarthritis, unspecified site; Z86.14 Personal history of Methicillin resistant Staphylococcus aureus infection
CPT/HCPCS: 97602

== ENCOUNTER → 2016-12-01 | Outpatient (CLI) | payer MEDICARE ==
[2016-11-20 10:30] VITALS: BP 118/73
== END | disposition home or self-care (01) ==
LOC: PMGWOUND 08:00
PROVIDERS: ATTEND Emergency Medicine Undersea and Hyperbaric Medicine
DX: I87.311 Chronic venous hypertension (idiopathic) with ulcer of right lower extremity (principal); L97.211 Non-pressure chronic ulcer of right calf limited to breakdown of skin; L03.116 Cellulitis of left lower limb; K21.9 Gastro-esophageal reflux disease without esophagitis; M19.90 Unspecified osteoarthritis, unspecified site; Z86.14 Personal history of Methicillin resistant Staphylococcus aureus infection
CPT/HCPCS: 29580; 97597; 97598

== ENCOUNTER → 2016-12-06 | Outpatient (CLI) | payer MEDICARE ==
[2016-11-20 10:30] VITALS: BP 118/73
== END | disposition home or self-care (01) ==
LOC: PMGWOUND 12:33
PROVIDERS: ATTEND Emergency Medicine Undersea and Hyperbaric Medicine
DX: I87.311 Chronic venous hypertension (idiopathic) with ulcer of right lower extremity (principal); L97.311 Non-pressure chronic ulcer of right ankle limited to breakdown of skin; K21.9 Gastro-esophageal reflux disease without esophagitis; M19.90 Unspecified osteoarthritis, unspecified site; Z86.14 Personal history of Methicillin resistant Staphylococcus aureus infection; Z88.8 Allergy status to other drugs, medicaments and biological substances; Z88.1 Allergy status to other antibiotic agents; Z88.0 Allergy status to penicillin; Z88.2 Allergy status to sulfonamides; Z88.4 Allergy status to anesthetic agent
CPT/HCPCS: 99214

== ENCOUNTER → 2016-12-08 | Outpatient (CLI) | payer MEDICARE ==
[2016-11-20 10:30] VITALS: BP 118/73
== END | disposition home or self-care (01) ==
LOC: PMGWOUND 10:07
PROVIDERS: ATTEND Emergency Medicine Undersea and Hyperbaric Medicine
DX: I87.311 Chronic venous hypertension (idiopathic) with ulcer of right lower extremity (principal); L97.311 Non-pressure chronic ulcer of right ankle limited to breakdown of skin; K21.9 Gastro-esophageal reflux disease without esophagitis; M19.90 Unspecified osteoarthritis, unspecified site; Z86.14 Personal history of Methicillin resistant Staphylococcus aureus infection; Z88.8 Allergy status to other drugs, medicaments and biological substances; Z88.1 Allergy status to other antibiotic agents; Z88.4 Allergy status to anesthetic agent; Z88.0 Allergy status to penicillin; Z88.2 Allergy status to sulfonamides
CPT/HCPCS: 15271; 15272; Q4101

== ENCOUNTER → 2016-12-13 | Outpatient (CLI) | payer MEDICARE ==
[2016-11-20 10:30] VITALS: BP 118/73
== END | disposition home or self-care (01) ==
LOC: PMGWOUND 08:01
PROVIDERS: ATTEND Emergency Medicine Undersea and Hyperbaric Medicine
DX: I87.311 Chronic venous hypertension (idiopathic) with ulcer of right lower extremity (principal); L97.311 Non-pressure chronic ulcer of right ankle limited to breakdown of skin; K21.9 Gastro-esophageal reflux disease without esophagitis; M19.90 Unspecified osteoarthritis, unspecified site; Z86.14 Personal history of Methicillin resistant Staphylococcus aureus infection
CPT/HCPCS: 97597; 97598

== ENCOUNTER → 2016-12-20 | Outpatient (CLI) | payer MEDICARE ==
[2016-11-20 10:30] VITALS: BP 118/73
== END | disposition home or self-care (01) ==
LOC: PMGWOUND 08:01
PROVIDERS: ATTEND Emergency Medicine Undersea and Hyperbaric Medicine
DX: I87.311 Chronic venous hypertension (idiopathic) with ulcer of right lower extremity (principal); L97.311 Non-pressure chronic ulcer of right ankle limited to breakdown of skin; K21.9 Gastro-esophageal reflux disease without esophagitis; M19.90 Unspecified osteoarthritis, unspecified site; I10 Essential (primary) hypertension; Z86.14 Personal history of Methicillin resistant Staphylococcus aureus infection; Z88.4 Allergy status to anesthetic agent; Z88.1 Allergy status to other antibiotic agents; Z88.8 Allergy status to other drugs, medicaments and biological substances; Z88.2 Allergy status to sulfonamides; Z88.0 Allergy status to penicillin
CPT/HCPCS: 97597; 97598

== ENCOUNTER → 2016-12-21 | Outpatient (CLI) | payer MEDICARE ==
[~2016-12-21] MED LIST changes: +GABA-586 PO; +NAPR500T8 PO
== END | disposition home or self-care (01) ==
LOC: PMGWOUND 11:42
PROVIDERS: ATTEND Preventive Medicine Undersea and Hyperbaric Medicine
DX: I87.311 Chronic venous hypertension (idiopathic) with ulcer of right lower extremity (principal); L97.311 Non-pressure chronic ulcer of right ankle limited to breakdown of skin; M19.90 Unspecified osteoarthritis, unspecified site; K21.9 Gastro-esophageal reflux disease without esophagitis; Z88.4 Allergy status to anesthetic agent; Z88.8 Allergy status to other drugs, medicaments and biological substances; Z88.0 Allergy status to penicillin; Z88.1 Allergy status to other antibiotic agents; Z88.2 Allergy status to sulfonamides; Z86.14 Personal history of Methicillin resistant Staphylococcus aureus infection; Z90.49 Acquired absence of other specified parts of digestive tract
CPT/HCPCS: 97602

== ENCOUNTER → 2016-12-27 | Outpatient (CLI) | payer MEDICARE ==
[2016-12-24 11:00] VITALS: BP 116/73
== END | disposition home or self-care (01) ==
LOC: PMGWOUND 08:00
PROVIDERS: ATTEND Emergency Medicine Undersea and Hyperbaric Medicine
DX: I87.311 Chronic venous hypertension (idiopathic) with ulcer of right lower extremity (principal); L97.311 Non-pressure chronic ulcer of right ankle limited to breakdown of skin; I10 Essential (primary) hypertension; J45.909 Unspecified asthma, uncomplicated; M19.90 Unspecified osteoarthritis, unspecified site; Z86.14 Personal history of Methicillin resistant Staphylococcus aureus infection; Z90.49 Acquired absence of other specified parts of digestive tract
CPT/HCPCS: 11042; 11045

== ENCOUNTER → 2017-01-03 | Outpatient (CLI) | payer MEDICARE ==
[2016-12-24 11:00] VITALS: BP 116/73
== END | disposition home or self-care (01) ==
LOC: PMGWOUND 07:58
PROVIDERS: ATTEND Emergency Medicine Undersea and Hyperbaric Medicine
DX: I87.311 Chronic venous hypertension (idiopathic) with ulcer of right lower extremity (principal); L97.311 Non-pressure chronic ulcer of right ankle limited to breakdown of skin; K21.9 Gastro-esophageal reflux disease without esophagitis; Z86.14 Personal history of Methicillin resistant Staphylococcus aureus infection; J45.909 Unspecified asthma, uncomplicated; M19.90 Unspecified osteoarthritis, unspecified site
CPT/HCPCS: 97597; 97598

== ENCOUNTER → 2017-01-09 | Outpatient (CLI) | payer MEDICARE ==
[2016-12-24 11:00] VITALS: BP 116/73
--- NOTE | 2017-01-10 08:47 | RAD ---
Right ankle, 3 views, 01/09/2017: History: Pain, ulcer There is patchy bony demineralization. No fracture or destructive bony lesion is seen. There is moderate subcutaneous edema. IMPRESSION: 1. Demineralization. 2. No acute bony abnormality is detected. Right tibia and fibula, 2 views, 01/09/2017: There is patchy bony demineralization. There are more discrete lucencies in the mid and distal tibial shaft with sclerotic margins. Less prominent lucencies are present in the distal fibula. These may represent evolving bone infarcts. No fracture or acute destructive process is seen. There is moderate subcutaneous edema. IMPRESSION: 1. Patchy demineralization with chronic appearing tibial lucencies as described above. 2. No acute bony abnormality is detected.
== END | disposition home or self-care (01) ==
LOC: RAD 16:53
PROVIDERS: ATTEND Internal Medicine
DX: L97.819 Non-pressure chronic ulcer of other part of right lower leg with unspecified severity (principal); R60.0 Localized edema
CPT/HCPCS: 73590; 73610

== ENCOUNTER → 2017-01-10 | Outpatient (CLI) | payer MEDICARE ==
[2016-12-24 11:00] VITALS: BP 116/73
== END ==
LOC: PMGWOUND 08:05
PROVIDERS: ATTEND Emergency Medicine Undersea and Hyperbaric Medicine
DX: I87.311 Chronic venous hypertension (idiopathic) with ulcer of right lower extremity (principal); L97.311 Non-pressure chronic ulcer of right ankle limited to breakdown of skin; K21.9 Gastro-esophageal reflux disease without esophagitis; Z86.14 Personal history of Methicillin resistant Staphylococcus aureus infection; J45.909 Unspecified asthma, uncomplicated; M19.90 Unspecified osteoarthritis, unspecified site
CPT/HCPCS: 97597; 97598

== ENCOUNTER 2017-02-01 10:19 | Day surgery (SDC) | payer MEDICARE ==
[~2017-02-01 10:19] MED LIST changes: +BUPIVAC MPF-EPI 0.5%-1:200000 10 ML VIAL. ONE; +IV RINGERS,LACTATED 1000ML 1,000 ML IV SCH; +LIDOCAINE 1% PF 2 ML VIAL. ID PRN; +MINERAL OIL 10 ML VIAL MC ONE; +MORPHINE SULFATE 4 MG/ML DISP.SYRIN. IV PRN; +ONDANSETRON PF 4 MG/2 ML VIAL. IV PRN; +OXYC15TA PO; +PROCHLORPERAZINE 10 MG/2 ML VIAL. IV PRN
[2017-02-01 10:56] LABS: NEG OBC UR NEG; POS OBC UR POS
[2017-02-01] MEDS ORDERED: BUPIVACAINE-EPI 0.5%-1:200000 50 ML VIAL. ONE (12:05)
[2017-02-01] MEDS ORDERED: MIDAZOLAM HCL/PF 2 MG/2 ML VIAL. ONE (12:11)
[2017-02-01] MEDS ORDERED: LIDOCAINE 2% PF Vial for OR 5 ML VIAL. ONE (12:11)
[2017-02-01] MEDS ORDERED: PROPOFOL 20 ML IV ONE (12:11)
--- NOTE | 2017-02-01 12:32 | PDOC ---
SURGICAL PROGRESS NOTE Subjective Pre-Op Note 46 yo F with right medial venous stasis ulcer TO OR for STSG R/B/A d/w pt and pt's mother, including after care Office note H&P reviewed and unchanged. Vital Signs Vital Signs Date Time Temp Pulse Resp B/P (MAP) Pulse Ox O2 Delivery O2 Flow Rate FiO2 02/01/17 10:45 98.8 80 18 94 98.8 02/01/17 10:38 140/84 Room Air Labs Laboratory Tests Test 02/01/17 10:30 Urine Test Negative (NEG) Laboratory Tests Test 02/01/17 10:30 Urine Test Negative (NEG) RACHEL CAMPOS MD Feb 01, 2017 12:32
[2017-02-01] MEDS ORDERED: FAMOTIDINE 20 MG/2 ML VIAL ONE (12:36)
[2017-02-01] MEDS ORDERED: DEXAMETHASONE SOD PHOS 20 MG/5 ML VIAL. ONE (12:36)
[2017-02-01] MEDS ORDERED: ONDANSETRON PF 4 MG/2 ML VIAL. ONE (12:36)
[2017-02-01] MEDS ORDERED: SEVOFLURANE 31 TO 60 MINUTES. IH ONE (13:32)
[2017-02-01] MEDS: HYDROmorphone 2 MG/ML VIAL IV PRN ×3 (13:45→14:07)
--- NOTE | 2017-02-01 14:12 | PDOC4 ---
OPERATIVE NOTE Date: Date: Feb 01, 2017 Pre-Op Diagnosis: right medial venous stasis ulcer Post-Op Diagnosis: same Procedure Performed: Split thickness skin graft Surgeon: Yuan Campos Anesthesia Type: GETA plus 0.5% marcaine Blood Loss: 5 Specimans Obtained: none Findings: good granulation tissue 7 cm x 4 cm ulcer Complications: none Operative Note: After obtaining informed consent, patient was taken to the OR and induced under anesthetic. Patient was prepped in the usual fashion over the right leg. Medial right ankle ulcer was gently debrided with good tissue and bleeding. Graft was harvested from anterior right thigh. This was then obtained with hemostasis, using 0.5 % marcaine with epinephrine and pressure. Aquacel Ag applied with dressing. Graft was then meshed 3:1 and placed over ulcer using multiple interrupted 4 0 monocryl. Xeroform gauze then placed and a sterile dressing. A splint was also applied. Patient tolerated procedure well and discharge to recovery in stable condition. All counts were correct. There were no immediate complications. YUAN CAMPOS MD Feb 01, 2017 14:12
[2017-02-01 15:15] VITALS: BP 116/78
== END 2017-02-01 15:20 | disposition home or self-care (01) ==
LOC: SURG 10:19
PROVIDERS: ATTEND Surgery
DX: I87.8 Other specified disorders of veins (principal); I10 Essential (primary) hypertension; K21.9 Gastro-esophageal reflux disease without esophagitis; M10.9 Gout, unspecified; D64.9 Anemia, unspecified; Z87.39 Personal history of other diseases of the musculoskeletal system and connective tissue; Z86.14 Personal history of Methicillin resistant Staphylococcus aureus infection; Z90.49 Acquired absence of other specified parts of digestive tract; Z88.4 Allergy status to anesthetic agent; Z88.1 Allergy status to other antibiotic agents; Z88.0 Allergy status to penicillin; Z88.8 Allergy status to other drugs, medicaments and biological substances
CPT/HCPCS: 15100; 81025; J1100; J1170; J2250; J2405; J2704; J3490; J7120; S0028; J2001

== ENCOUNTER → 2017-06-29 | Outpatient (CLI) | payer MEDICARE | END | disposition home or self-care (01) | LOC: PMGWOUND 07:55 | DX: I87.311 Chronic venous hypertension (idiopathic) with ulcer of right lower extremity (principal); L97.311 Non-pressure chronic ulcer of right ankle limited to breakdown of skin; L97.211 Non-pressure chronic ulcer of right calf limited to breakdown of skin; G89.4 Chronic pain syndrome; K21.9 Gastro-esophageal reflux disease without esophagitis; J45.909 Unspecified asthma, uncomplicated; M19.90 Unspecified osteoarthritis, unspecified site; Z90.710 Acquired absence of both cervix and uterus | CPT/HCPCS: 97597 ==

== ENCOUNTER → 2017-07-06 | Outpatient (CLI) | payer MEDICARE | END | disposition home or self-care (01) | LOC: PMGWOUND 07:54 | DX: I87.311 Chronic venous hypertension (idiopathic) with ulcer of right lower extremity (principal); L97.311 Non-pressure chronic ulcer of right ankle limited to breakdown of skin; L97.211 Non-pressure chronic ulcer of right calf limited to breakdown of skin; G89.4 Chronic pain syndrome; K21.9 Gastro-esophageal reflux disease without esophagitis; J45.909 Unspecified asthma, uncomplicated; M19.90 Unspecified osteoarthritis, unspecified site; Z90.710 Acquired absence of both cervix and uterus | CPT/HCPCS: 97597 ==

== ENCOUNTER → 2017-07-13 | Outpatient (CLI) | payer MEDICARE | END | disposition home or self-care (01) | LOC: PMGWOUND 08:04 | DX: I87.311 Chronic venous hypertension (idiopathic) with ulcer of right lower extremity (principal); L97.311 Non-pressure chronic ulcer of right ankle limited to breakdown of skin; L97.211 Non-pressure chronic ulcer of right calf limited to breakdown of skin; G89.4 Chronic pain syndrome; K21.9 Gastro-esophageal reflux disease without esophagitis; J45.909 Unspecified asthma, uncomplicated; M19.90 Unspecified osteoarthritis, unspecified site; Z90.710 Acquired absence of both cervix and uterus | CPT/HCPCS: 97597 ==

== ENCOUNTER → 2017-07-20 | Outpatient (CLI) | payer MEDICARE | END | disposition home or self-care (01) | LOC: PMGWOUND 08:00 | DX: I87.311 Chronic venous hypertension (idiopathic) with ulcer of right lower extremity (principal); L97.311 Non-pressure chronic ulcer of right ankle limited to breakdown of skin; L97.211 Non-pressure chronic ulcer of right calf limited to breakdown of skin; G89.4 Chronic pain syndrome; K21.9 Gastro-esophageal reflux disease without esophagitis; J45.909 Unspecified asthma, uncomplicated; M19.90 Unspecified osteoarthritis, unspecified site; Z90.710 Acquired absence of both cervix and uterus | CPT/HCPCS: 99214 ==

== ENCOUNTER → 2017-07-27 | Outpatient (CLI) | payer MEDICARE | END | disposition home or self-care (01) | LOC: PMGWOUND 08:11 | DX: I87.311 Chronic venous hypertension (idiopathic) with ulcer of right lower extremity (principal); L97.311 Non-pressure chronic ulcer of right ankle limited to breakdown of skin; L97.211 Non-pressure chronic ulcer of right calf limited to breakdown of skin; G89.4 Chronic pain syndrome; K21.9 Gastro-esophageal reflux disease without esophagitis; J45.909 Unspecified asthma, uncomplicated; M19.90 Unspecified osteoarthritis, unspecified site; Z90.710 Acquired absence of both cervix and uterus | CPT/HCPCS: 99214 ==

== ENCOUNTER → 2017-08-03 | Outpatient (CLI) | payer MEDICARE | END | disposition home or self-care (01) | LOC: PMGWOUND 09:59 | DX: I87.311 Chronic venous hypertension (idiopathic) with ulcer of right lower extremity (principal); L97.311 Non-pressure chronic ulcer of right ankle limited to breakdown of skin; L97.211 Non-pressure chronic ulcer of right calf limited to breakdown of skin; G89.4 Chronic pain syndrome; K21.9 Gastro-esophageal reflux disease without esophagitis; J45.909 Unspecified asthma, uncomplicated; M19.90 Unspecified osteoarthritis, unspecified site; Z90.710 Acquired absence of both cervix and uterus | CPT/HCPCS: G0463 ==

== ENCOUNTER → 2017-08-10 | Outpatient (CLI) | payer MEDICARE | END | disposition home or self-care (01) | LOC: PMGWOUND 08:02 | DX: I87.311 Chronic venous hypertension (idiopathic) with ulcer of right lower extremity (principal); L97.311 Non-pressure chronic ulcer of right ankle limited to breakdown of skin; L97.211 Non-pressure chronic ulcer of right calf limited to breakdown of skin; G89.4 Chronic pain syndrome; K21.9 Gastro-esophageal reflux disease without esophagitis; J45.909 Unspecified asthma, uncomplicated; M19.90 Unspecified osteoarthritis, unspecified site; Z90.710 Acquired absence of both cervix and uterus | CPT/HCPCS: 97597 ==

== ENCOUNTER → 2017-08-17 | Outpatient (CLI) | payer MEDICARE | END | disposition home or self-care (01) | LOC: PMGWOUND 09:09 | DX: I87.311 Chronic venous hypertension (idiopathic) with ulcer of right lower extremity (principal); L97.311 Non-pressure chronic ulcer of right ankle limited to breakdown of skin; L97.211 Non-pressure chronic ulcer of right calf limited to breakdown of skin; I87.2 Venous insufficiency (chronic) (peripheral); G89.4 Chronic pain syndrome; K21.9 Gastro-esophageal reflux disease without esophagitis; J45.909 Unspecified asthma, uncomplicated; M19.90 Unspecified osteoarthritis, unspecified site; Z90.710 Acquired absence of both cervix and uterus | CPT/HCPCS: 97597 ==

== ENCOUNTER → 2017-08-31 | Outpatient (CLI) | payer MEDICARE | END | disposition home or self-care (01) | LOC: PMGWOUND 08:00 | DX: I87.311 Chronic venous hypertension (idiopathic) with ulcer of right lower extremity (principal); L97.312 Non-pressure chronic ulcer of right ankle with fat layer exposed; G89.4 Chronic pain syndrome; K21.9 Gastro-esophageal reflux disease without esophagitis; J45.909 Unspecified asthma, uncomplicated; M19.90 Unspecified osteoarthritis, unspecified site; Z90.710 Acquired absence of both cervix and uterus | CPT/HCPCS: 97597 ==

== ENCOUNTER → 2017-09-14 | Outpatient (CLI) | payer MEDICARE | END | disposition home or self-care (01) | LOC: PMGWOUND 08:00 | DX: I87.311 Chronic venous hypertension (idiopathic) with ulcer of right lower extremity (principal); L97.311 Non-pressure chronic ulcer of right ankle limited to breakdown of skin; G89.4 Chronic pain syndrome; K21.9 Gastro-esophageal reflux disease without esophagitis; J45.909 Unspecified asthma, uncomplicated; M19.90 Unspecified osteoarthritis, unspecified site; Z90.710 Acquired absence of both cervix and uterus | CPT/HCPCS: 99214 ==

== ENCOUNTER → 2017-09-28 | Outpatient (CLI) | payer MEDICARE | END | disposition home or self-care (01) | LOC: PMGWOUND 08:10 | DX: I87.313 Chronic venous hypertension (idiopathic) with ulcer of bilateral lower extremity (principal); L97.312 Non-pressure chronic ulcer of right ankle with fat layer exposed; L97.321 Non-pressure chronic ulcer of left ankle limited to breakdown of skin; G89.4 Chronic pain syndrome; K21.9 Gastro-esophageal reflux disease without esophagitis; J45.909 Unspecified asthma, uncomplicated; M19.90 Unspecified osteoarthritis, unspecified site; Z90.710 Acquired absence of both cervix and uterus | CPT/HCPCS: 11042 ==

== ENCOUNTER → 2017-10-10 | Outpatient (CLI) | payer MEDICARE | END | disposition home or self-care (01) | LOC: PMGWOUND 11:43 | DX: I87.313 Chronic venous hypertension (idiopathic) with ulcer of bilateral lower extremity (principal); L97.312 Non-pressure chronic ulcer of right ankle with fat layer exposed; L97.322 Non-pressure chronic ulcer of left ankle with fat layer exposed; J44.9 Chronic obstructive pulmonary disease, unspecified; K21.9 Gastro-esophageal reflux disease without esophagitis; G89.4 Chronic pain syndrome; J45.909 Unspecified asthma, uncomplicated; Z90.710 Acquired absence of both cervix and uterus; Z90.49 Acquired absence of other specified parts of digestive tract | CPT/HCPCS: 11042; 11045; 29581; 97597; 97598; 99211 ==

== ENCOUNTER → 2017-10-13 | Outpatient (CLI) | payer MEDICARE | END | disposition home or self-care (01) | LOC: PMGWOUND 08:15 | DX: I87.313 Chronic venous hypertension (idiopathic) with ulcer of bilateral lower extremity (principal); L97.312 Non-pressure chronic ulcer of right ankle with fat layer exposed; L97.321 Non-pressure chronic ulcer of left ankle limited to breakdown of skin; G89.4 Chronic pain syndrome; K21.9 Gastro-esophageal reflux disease without esophagitis; J44.9 Chronic obstructive pulmonary disease, unspecified; M19.90 Unspecified osteoarthritis, unspecified site; Z90.710 Acquired absence of both cervix and uterus | CPT/HCPCS: 29581 ==

== ENCOUNTER → 2017-10-17 | Outpatient (CLI) | payer MEDICARE | END | disposition home or self-care (01) | LOC: PMGWOUND 08:05 | DX: I87.313 Chronic venous hypertension (idiopathic) with ulcer of bilateral lower extremity (principal); L97.312 Non-pressure chronic ulcer of right ankle with fat layer exposed; L97.321 Non-pressure chronic ulcer of left ankle limited to breakdown of skin; G89.4 Chronic pain syndrome; K21.9 Gastro-esophageal reflux disease without esophagitis; J44.9 Chronic obstructive pulmonary disease, unspecified; M19.90 Unspecified osteoarthritis, unspecified site; Z90.710 Acquired absence of both cervix and uterus | CPT/HCPCS: 97597; 97598 ==

== ENCOUNTER → 2017-10-20 | Outpatient (CLI) | payer MEDICARE | END | disposition home or self-care (01) | LOC: PMGWOUND 08:48 | DX: I87.313 Chronic venous hypertension (idiopathic) with ulcer of bilateral lower extremity (principal); L97.312 Non-pressure chronic ulcer of right ankle with fat layer exposed; L97.321 Non-pressure chronic ulcer of left ankle limited to breakdown of skin; G89.4 Chronic pain syndrome; K21.9 Gastro-esophageal reflux disease without esophagitis; J44.9 Chronic obstructive pulmonary disease, unspecified; M19.90 Unspecified osteoarthritis, unspecified site; Z90.710 Acquired absence of both cervix and uterus | CPT/HCPCS: 29581 ==

== ENCOUNTER → 2017-10-24 | Outpatient (CLI) | payer MEDICARE | END | disposition home or self-care (01) | LOC: PMGWOUND 08:53 | DX: I87.313 Chronic venous hypertension (idiopathic) with ulcer of bilateral lower extremity (principal); L97.312 Non-pressure chronic ulcer of right ankle with fat layer exposed; L97.321 Non-pressure chronic ulcer of left ankle limited to breakdown of skin; G89.4 Chronic pain syndrome; K21.9 Gastro-esophageal reflux disease without esophagitis; J44.9 Chronic obstructive pulmonary disease, unspecified; M19.90 Unspecified osteoarthritis, unspecified site; Z90.710 Acquired absence of both cervix and uterus | CPT/HCPCS: 11042; 11045; 29581; 97597; 97598 ==

== ENCOUNTER → 2017-10-27 | Outpatient (CLI) | payer MEDICARE | END | disposition home or self-care (01) | LOC: PMGWOUND 08:33 | DX: I87.313 Chronic venous hypertension (idiopathic) with ulcer of bilateral lower extremity (principal); L97.322 Non-pressure chronic ulcer of left ankle with fat layer exposed; L97.311 Non-pressure chronic ulcer of right ankle limited to breakdown of skin; J44.9 Chronic obstructive pulmonary disease, unspecified; G89.4 Chronic pain syndrome; K21.9 Gastro-esophageal reflux disease without esophagitis; M19.90 Unspecified osteoarthritis, unspecified site; Z90.49 Acquired absence of other specified parts of digestive tract; Z90.710 Acquired absence of both cervix and uterus | CPT/HCPCS: 29581 ==

== ENCOUNTER → 2017-10-31 | Outpatient (CLI) | payer MEDICARE | END | disposition home or self-care (01) | LOC: PMGWOUND 08:06 | DX: I87.313 Chronic venous hypertension (idiopathic) with ulcer of bilateral lower extremity (principal); L97.322 Non-pressure chronic ulcer of left ankle with fat layer exposed; L97.311 Non-pressure chronic ulcer of right ankle limited to breakdown of skin; J44.9 Chronic obstructive pulmonary disease, unspecified; G89.4 Chronic pain syndrome; K21.9 Gastro-esophageal reflux disease without esophagitis; M19.90 Unspecified osteoarthritis, unspecified site; Z90.49 Acquired absence of other specified parts of digestive tract; Z90.710 Acquired absence of both cervix and uterus | CPT/HCPCS: 29581; 97597; 97598 ==

== ENCOUNTER → 2017-11-03 | Outpatient (CLI) | payer MEDICARE | END | disposition home or self-care (01) | LOC: PMGWOUND 08:19 | DX: I87.313 Chronic venous hypertension (idiopathic) with ulcer of bilateral lower extremity (principal); L97.322 Non-pressure chronic ulcer of left ankle with fat layer exposed; L97.311 Non-pressure chronic ulcer of right ankle limited to breakdown of skin; J44.9 Chronic obstructive pulmonary disease, unspecified; G89.4 Chronic pain syndrome; K21.9 Gastro-esophageal reflux disease without esophagitis; M19.90 Unspecified osteoarthritis, unspecified site; Z90.49 Acquired absence of other specified parts of digestive tract; Z90.710 Acquired absence of both cervix and uterus | CPT/HCPCS: 29581 ==

== ENCOUNTER → 2017-11-07 | Outpatient (CLI) | payer MEDICARE | END | disposition home or self-care (01) | LOC: PMGWOUND 08:14 | DX: I87.313 Chronic venous hypertension (idiopathic) with ulcer of bilateral lower extremity (principal); L97.322 Non-pressure chronic ulcer of left ankle with fat layer exposed; L97.311 Non-pressure chronic ulcer of right ankle limited to breakdown of skin; J44.9 Chronic obstructive pulmonary disease, unspecified; G89.4 Chronic pain syndrome; K21.9 Gastro-esophageal reflux disease without esophagitis; M19.90 Unspecified osteoarthritis, unspecified site; Z90.49 Acquired absence of other specified parts of digestive tract; Z90.710 Acquired absence of both cervix and uterus | CPT/HCPCS: 29581; 97597; 97598 ==

== ENCOUNTER → 2017-11-10 | Outpatient (CLI) | payer MEDICARE | END | disposition home or self-care (01) | LOC: PMGWOUND 08:00 | DX: I87.313 Chronic venous hypertension (idiopathic) with ulcer of bilateral lower extremity (principal); L97.311 Non-pressure chronic ulcer of right ankle limited to breakdown of skin; L97.322 Non-pressure chronic ulcer of left ankle with fat layer exposed; J44.9 Chronic obstructive pulmonary disease, unspecified; G89.4 Chronic pain syndrome; K21.9 Gastro-esophageal reflux disease without esophagitis; M19.90 Unspecified osteoarthritis, unspecified site; Z90.49 Acquired absence of other specified parts of digestive tract; Z90.710 Acquired absence of both cervix and uterus | CPT/HCPCS: 29581 ==

== ENCOUNTER → 2017-11-14 | Outpatient (CLI) | payer MEDICARE | END | disposition home or self-care (01) | LOC: PMGWOUND 08:01 | DX: I87.313 Chronic venous hypertension (idiopathic) with ulcer of bilateral lower extremity (principal); L97.322 Non-pressure chronic ulcer of left ankle with fat layer exposed; L97.311 Non-pressure chronic ulcer of right ankle limited to breakdown of skin; J44.9 Chronic obstructive pulmonary disease, unspecified; G89.4 Chronic pain syndrome; K21.9 Gastro-esophageal reflux disease without esophagitis; M19.90 Unspecified osteoarthritis, unspecified site; J45.909 Unspecified asthma, uncomplicated; Z90.710 Acquired absence of both cervix and uterus; Z90.49 Acquired absence of other specified parts of digestive tract | CPT/HCPCS: 29581; 97597; 97598 ==

== ENCOUNTER → 2017-11-17 | Outpatient (CLI) | payer MEDICARE | END | disposition home or self-care (01) | LOC: PMGWOUND 08:30 | DX: I87.313 Chronic venous hypertension (idiopathic) with ulcer of bilateral lower extremity (principal); L97.311 Non-pressure chronic ulcer of right ankle limited to breakdown of skin; L97.322 Non-pressure chronic ulcer of left ankle with fat layer exposed; J44.9 Chronic obstructive pulmonary disease, unspecified; G89.4 Chronic pain syndrome; K21.9 Gastro-esophageal reflux disease without esophagitis; J45.909 Unspecified asthma, uncomplicated; M19.90 Unspecified osteoarthritis, unspecified site; Z90.49 Acquired absence of other specified parts of digestive tract; Z90.710 Acquired absence of both cervix and uterus | CPT/HCPCS: 29581 ==

== ENCOUNTER → 2017-11-21 | Outpatient (CLI) | payer MEDICARE | END | disposition home or self-care (01) | LOC: PMGWOUND 08:22 | DX: I87.313 Chronic venous hypertension (idiopathic) with ulcer of bilateral lower extremity (principal); L97.211 Non-pressure chronic ulcer of right calf limited to breakdown of skin; L97.222 Non-pressure chronic ulcer of left calf with fat layer exposed; J44.9 Chronic obstructive pulmonary disease, unspecified; G89.4 Chronic pain syndrome; K21.9 Gastro-esophageal reflux disease without esophagitis; M19.90 Unspecified osteoarthritis, unspecified site; M10.9 Gout, unspecified; Z90.49 Acquired absence of other specified parts of digestive tract; Z90.710 Acquired absence of both cervix and uterus | CPT/HCPCS: 11042; 97597; 97598 ==

== ENCOUNTER → 2017-11-24 | Outpatient (CLI) | payer MEDICARE | END | disposition home or self-care (01) | LOC: PMGWOUND 07:49 | DX: I87.313 Chronic venous hypertension (idiopathic) with ulcer of bilateral lower extremity (principal); L97.211 Non-pressure chronic ulcer of right calf limited to breakdown of skin; L97.222 Non-pressure chronic ulcer of left calf with fat layer exposed; J44.9 Chronic obstructive pulmonary disease, unspecified; G89.4 Chronic pain syndrome; K21.9 Gastro-esophageal reflux disease without esophagitis; M19.90 Unspecified osteoarthritis, unspecified site; M10.9 Gout, unspecified; Z90.49 Acquired absence of other specified parts of digestive tract; Z90.710 Acquired absence of both cervix and uterus | CPT/HCPCS: 29581 ==

== ENCOUNTER → 2017-11-28 | Outpatient (CLI) | payer MEDICARE | END | disposition home or self-care (01) | LOC: PMGWOUND 08:01 | DX: I87.313 Chronic venous hypertension (idiopathic) with ulcer of bilateral lower extremity (principal); L97.211 Non-pressure chronic ulcer of right calf limited to breakdown of skin; L97.222 Non-pressure chronic ulcer of left calf with fat layer exposed; J44.9 Chronic obstructive pulmonary disease, unspecified; G89.4 Chronic pain syndrome; K21.9 Gastro-esophageal reflux disease without esophagitis; M19.90 Unspecified osteoarthritis, unspecified site; M10.9 Gout, unspecified; Z90.49 Acquired absence of other specified parts of digestive tract; Z90.710 Acquired absence of both cervix and uterus | CPT/HCPCS: 29581; 97597; 97598 ==

== ENCOUNTER → 2017-12-01 | Outpatient (CLI) | payer MEDICARE | END | disposition home or self-care (01) | LOC: PMGWOUND 08:04 | DX: I87.313 Chronic venous hypertension (idiopathic) with ulcer of bilateral lower extremity (principal); L97.211 Non-pressure chronic ulcer of right calf limited to breakdown of skin; L97.222 Non-pressure chronic ulcer of left calf with fat layer exposed; J44.9 Chronic obstructive pulmonary disease, unspecified; G89.4 Chronic pain syndrome; K21.9 Gastro-esophageal reflux disease without esophagitis; M19.90 Unspecified osteoarthritis, unspecified site; M10.9 Gout, unspecified; Z90.49 Acquired absence of other specified parts of digestive tract; Z90.710 Acquired absence of both cervix and uterus | CPT/HCPCS: 29581 ==

== ENCOUNTER → 2017-12-05 | Outpatient (CLI) | payer MEDICARE | END | disposition home or self-care (01) | LOC: PMGWOUND 08:02 | DX: I87.313 Chronic venous hypertension (idiopathic) with ulcer of bilateral lower extremity (principal); L97.211 Non-pressure chronic ulcer of right calf limited to breakdown of skin; L97.222 Non-pressure chronic ulcer of left calf with fat layer exposed; J44.9 Chronic obstructive pulmonary disease, unspecified; G89.4 Chronic pain syndrome; K21.9 Gastro-esophageal reflux disease without esophagitis; M19.90 Unspecified osteoarthritis, unspecified site; M10.9 Gout, unspecified; Z90.49 Acquired absence of other specified parts of digestive tract; Z90.710 Acquired absence of both cervix and uterus | CPT/HCPCS: 97597; 97598 ==

== ENCOUNTER → 2017-12-12 | Outpatient (CLI) | payer MEDICARE ==
[2017-10-05 15:00] VITALS: BP 119/73
[~2017-12-12] MED LIST changes: +ASCO500T3 PO; -BUPIVAC MPF-EPI 0.5%-1:200000 10 ML VIAL. ONE; +CEFP200T PO; +CHOL100013 PO; -IV RINGERS,LACTATED 1000ML 1,000 ML IV SCH; -LIDOCAINE 1% PF 2 ML VIAL. ID PRN; -MINERAL OIL 10 ML VIAL MC ONE; -MORPHINE SULFATE 4 MG/ML DISP.SYRIN. IV PRN; -ONDANSETRON PF 4 MG/2 ML VIAL. IV PRN; -PROCHLORPERAZINE 10 MG/2 ML VIAL. IV PRN
== END | disposition home or self-care (01) ==
LOC: PMGWOUND 08:11
PROVIDERS: ATTEND Emergency Medicine Undersea and Hyperbaric Medicine
DX: I87.313 Chronic venous hypertension (idiopathic) with ulcer of bilateral lower extremity (principal); L97.322 Non-pressure chronic ulcer of left ankle with fat layer exposed; L97.312 Non-pressure chronic ulcer of right ankle with fat layer exposed; K21.9 Gastro-esophageal reflux disease without esophagitis; J44.9 Chronic obstructive pulmonary disease, unspecified; G89.4 Chronic pain syndrome; M19.90 Unspecified osteoarthritis, unspecified site; M10.9 Gout, unspecified; Z90.710 Acquired absence of both cervix and uterus; Z90.49 Acquired absence of other specified parts of digestive tract; Z88.8 Allergy status to other drugs, medicaments and biological substances; Z88.3 Allergy status to other anti-infective agents
CPT/HCPCS: 97597; 97598

== ENCOUNTER 2017-12-16 00:04 | Emergency (ER) | payer MEDICARE ==
[~2017-12-16] VITALS: Ht 175.3 cm; Wt 66.7 kg
[~2017-12-16 00:04] MED LIST changes: -CEFP200T PO
[2017-12-16 00:10] VITALS: BP 135/75
--- NOTE | 2017-12-16 00:44 | PHYS DOC ---
Past Medical History Past Medical History: Sickle Cell Disease, Other Additional Past Medical Histor: wound related to sickle cell Past Surgical History: Cholecystectomy Alcohol Use: None Drug Use: None Adult General Chief Complaint Chief Complaint: MEDICATION REFILL HPI HPI 47 y/o presents with report of pain to left ankle at site of chronic ulcers. Reports needs pain medication. Reports normally follows at the [facility] cell [facility] for her pain medication. Reports she has not received any recent pain medication. Review of Systems Review of Systems Constitutional: Denies fever or chills [] Musculoskeletal: Reports ankle pain L>R Integument: Reports chronic ankle ulcerations, Denies erythema Neurologic: Denies headache, focal weakness or sensory changes [] Complete systems were reviewed and found to be within normal limits, except as documented in this note. Current Medications Current Medications Current Medications Medications (Trade) Dose Ordered Sig/Nilda Start Time Stop Time Status Last Admin Dose Admin Ibuprofen (Motrin) 600 mg 1X ONCE 12/16/17 01:00 12/16/17 01:01 DC 12/16/17 00:53 600 MG Allergies Allergies Allergies Coded Allergies Type Severity Reaction Last Updated Verified Penicillins Allergy Intermediate Rash 02/01/17 Yes bacitracin Allergy Intermediate Rash 02/01/17 Yes bacitracin zinc Allergy Intermediate Rash 02/01/17 Yes clindamycin Allergy Intermediate Rash 02/01/17 Yes neomycin sulfate Allergy Intermediate Rash 02/01/17 Yes polymyxin B Allergy Intermediate Rash 02/01/17 Yes silver sulfadiazine Allergy Intermediate 02/01/17 Yes sulfamethoxazole Allergy Intermediate 02/01/17 Yes trimethoprim Allergy Intermediate 02/01/17 Yes diltiazem Allergy Mild hives 02/01/17 Yes fentanyl Adverse Reaction Intermediate CAUSE SEVERE HEADACHE AND N/V 02/01/17 Yes Physical Exam Physical Exam Constitutional: Well developed, well nourished, no acute distress, non-toxic appearance. [] HENT: Normocephalic, atraumatic, Eyes: EOMI, conjunctiva normal, no discharge. [] Lungs & Thorax: No respiratory distress Skin: Warm, dry, healing chronic ulcerations to left ankle to medial and lateral aspects, no surrounding erythema, granulation tissue noted Extremities: No edema, dressing noted to bilateral ankles, left ankle with healing ulcerations as above, No deformity Neurologic: Alert and oriented X 3, no focal deficits noted. [] Current Patient Data Vital Signs Vital Signs Date Time Temp Pulse Resp B/P (MAP) Pulse Ox O2 Delivery O2 Flow Rate FiO2 12/16/17 00:10 98.5 78 16 96 Room Air 98.5 EKG EKG [] Radiology/Procedures Radiology/Procedures [] Course & Med Decision Making Course & Med Decision Making Patient with chronic ankle wounds presents with report of pain to left ankle. Ulcerations with granulation tissue noted. No exudate or surrounding erythema noted. Patient asked if she had received any recent pain medication. Patient denied recent pain medication. K Tracs patient report obtained with findings that patient received Carlock 10/325 x 20 tabs on 12/12/17 and then Tramadol 50mg tabs x 75 on 12/10/17. Patient did not appear truthful regarding her recently filled pain medications. Patient advised that given her recent refills of narcotic pain mediations that I would be unable to provide additional pain medications at this time. Patient advised she would need to follow up closely with the sickle cell clinic or wound clinic to obtain additional pain medications. Wounds redressed by balance staff staker. Patient stable for discharge with outpatient follow-up with PCP. Discussed findings and plan with patient, who acknowledges understanding and agreement. Dragon Disclaimer Dragon Disclaimer This electronic medical record was generated, in whole or in part, using a voice recognition dictation system. Departure Departure Impression: Primary Impression: Chronic pain Additional Impression: Chronic wound of extremity Disposition: 01 HOME, SELF-CARE Condition: STABLE Referrals: KIA SANTA MD (PCP) Patient Instructions: Chronic Pain Management Additional Instructions: Please take the medication which has previously been prescribed to you for your chronic pain. You may also use over the counter Tylenol and/or Ibuprofen. Problem Qualifiers Primary Impression: Chronic pain Chronic pain type: chronic pain syndrome Qualified Codes: G89.4 - Chronic pain syndrome AINSLEY DURÁN DO Dec 16, 2017 00:44
[2017-12-16] MEDS ORDERED: IBUPROFEN 600 MG TABLET. PO ONE (01:00)
[2017-12-18] MEDS ORDERED: CEFP200T PO (10:10)
== END 2017-12-16 01:08 | disposition home or self-care (01) ==
LOC: ER 00:04
DX: G89.4 Chronic pain syndrome (principal); L97.329 Non-pressure chronic ulcer of left ankle with unspecified severity; D57.1 Sickle-cell disease without crisis; Z88.0 Allergy status to penicillin; Z88.1 Allergy status to other antibiotic agents; Z88.2 Allergy status to sulfonamides; Z88.8 Allergy status to other drugs, medicaments and biological substances
CPT/HCPCS: 99282

== ENCOUNTER → 2017-12-19 | Outpatient (CLI) | payer MEDICARE ==
[2017-12-18 11:00] VITALS: BP 116/66
[~2017-12-19] MED LIST changes: +CEFP200T PO
== END | disposition home or self-care (01) ==
LOC: PMGWOUND 08:26
PROVIDERS: ATTEND Emergency Medicine Undersea and Hyperbaric Medicine
DX: I87.313 Chronic venous hypertension (idiopathic) with ulcer of bilateral lower extremity (principal); L97.322 Non-pressure chronic ulcer of left ankle with fat layer exposed; L97.312 Non-pressure chronic ulcer of right ankle with fat layer exposed; I87.301 Chronic venous hypertension (idiopathic) without complications of right lower extremity; J44.9 Chronic obstructive pulmonary disease, unspecified; G89.4 Chronic pain syndrome; I10 Essential (primary) hypertension; K21.9 Gastro-esophageal reflux disease without esophagitis; M10.9 Gout, unspecified; Z90.710 Acquired absence of both cervix and uterus; Z90.49 Acquired absence of other specified parts of digestive tract; Z88.5 Allergy status to narcotic agent; Z88.8 Allergy status to other drugs, medicaments and biological substances; Z88.3 Allergy status to other anti-infective agents; Z88.1 Allergy status to other antibiotic agents; Z88.0 Allergy status to penicillin; Z88.2 Allergy status to sulfonamides
CPT/HCPCS: 97597; 97598

== ENCOUNTER → 2017-12-26 | Outpatient (CLI) | payer MEDICARE ==
[2017-12-18 11:00] VITALS: BP 116/66
== END | disposition home or self-care (01) ==
LOC: PMGWOUND 10:04
PROVIDERS: ATTEND Emergency Medicine Undersea and Hyperbaric Medicine
DX: I87.313 Chronic venous hypertension (idiopathic) with ulcer of bilateral lower extremity (principal); L97.322 Non-pressure chronic ulcer of left ankle with fat layer exposed; L97.312 Non-pressure chronic ulcer of right ankle with fat layer exposed; K21.9 Gastro-esophageal reflux disease without esophagitis; J44.9 Chronic obstructive pulmonary disease, unspecified; G89.4 Chronic pain syndrome; M10.9 Gout, unspecified; E83.111 Hemochromatosis due to repeated red blood cell transfusions; E53.8 Deficiency of other specified B group vitamins; M19.90 Unspecified osteoarthritis, unspecified site; Z90.710 Acquired absence of both cervix and uterus; Z90.49 Acquired absence of other specified parts of digestive tract; Z88.1 Allergy status to other antibiotic agents; Z88.3 Allergy status to other anti-infective agents; Z88.5 Allergy status to narcotic agent; Z88.0 Allergy status to penicillin; Z88.2 Allergy status to sulfonamides; Z88.8 Allergy status to other drugs, medicaments and biological substances
CPT/HCPCS: 97597; 97598

== ENCOUNTER → 2018-01-09 | Outpatient (CLI) | payer MEDICARE ==
[2017-12-18 11:00] VITALS: BP 116/66
== END | disposition home or self-care (01) ==
LOC: PMGWOUND 08:03
PROVIDERS: ATTEND Emergency Medicine Undersea and Hyperbaric Medicine
DX: I87.313 Chronic venous hypertension (idiopathic) with ulcer of bilateral lower extremity (principal); L97.312 Non-pressure chronic ulcer of right ankle with fat layer exposed; L97.322 Non-pressure chronic ulcer of left ankle with fat layer exposed; G89.4 Chronic pain syndrome; M10.9 Gout, unspecified; E53.0 Riboflavin deficiency; K21.9 Gastro-esophageal reflux disease without esophagitis; M19.90 Unspecified osteoarthritis, unspecified site; J44.9 Chronic obstructive pulmonary disease, unspecified; E83.111 Hemochromatosis due to repeated red blood cell transfusions; Z90.49 Acquired absence of other specified parts of digestive tract; Z90.710 Acquired absence of both cervix and uterus; Z88.1 Allergy status to other antibiotic agents; Z88.3 Allergy status to other anti-infective agents; Z88.5 Allergy status to narcotic agent; Z88.0 Allergy status to penicillin; Z88.2 Allergy status to sulfonamides; Z88.8 Allergy status to other drugs, medicaments and biological substances
CPT/HCPCS: 87071; 87075; 87186; 97597; 97598

== ENCOUNTER → 2018-01-16 | Outpatient (CLI) | payer MEDICARE ==
[2017-12-18 11:00] VITALS: BP 116/66
== END | disposition home or self-care (01) ==
LOC: PMGWOUND 08:02
PROVIDERS: ATTEND Emergency Medicine Undersea and Hyperbaric Medicine
DX: I87.313 Chronic venous hypertension (idiopathic) with ulcer of bilateral lower extremity (principal); L97.312 Non-pressure chronic ulcer of right ankle with fat layer exposed; L97.322 Non-pressure chronic ulcer of left ankle with fat layer exposed; G89.4 Chronic pain syndrome; J44.9 Chronic obstructive pulmonary disease, unspecified; E53.0 Riboflavin deficiency; K21.9 Gastro-esophageal reflux disease without esophagitis; M19.90 Unspecified osteoarthritis, unspecified site; M10.9 Gout, unspecified; E53.8 Deficiency of other specified B group vitamins; E83.111 Hemochromatosis due to repeated red blood cell transfusions; Z90.710 Acquired absence of both cervix and uterus; Z90.49 Acquired absence of other specified parts of digestive tract
CPT/HCPCS: 97597; 97598

== ENCOUNTER → 2018-01-23 | Outpatient (CLI) | payer MEDICARE ==
[2017-12-18 11:00] VITALS: BP 116/66
== END | disposition home or self-care (01) ==
LOC: PMGWOUND 10:38
PROVIDERS: ATTEND Emergency Medicine Undersea and Hyperbaric Medicine
DX: I87.313 Chronic venous hypertension (idiopathic) with ulcer of bilateral lower extremity (principal); L97.312 Non-pressure chronic ulcer of right ankle with fat layer exposed; L97.322 Non-pressure chronic ulcer of left ankle with fat layer exposed; J44.9 Chronic obstructive pulmonary disease, unspecified; G89.4 Chronic pain syndrome; M10.9 Gout, unspecified; K21.9 Gastro-esophageal reflux disease without esophagitis; M19.90 Unspecified osteoarthritis, unspecified site; Z90.710 Acquired absence of both cervix and uterus; Z90.49 Acquired absence of other specified parts of digestive tract
CPT/HCPCS: 97597; 97598

== ENCOUNTER → 2018-01-30 | Outpatient (CLI) | payer MEDICARE ==
[2017-12-18 11:00] VITALS: BP 116/66
== END | disposition home or self-care (01) ==
LOC: PMGWOUND 08:05
PROVIDERS: ATTEND Emergency Medicine Undersea and Hyperbaric Medicine
DX: I87.313 Chronic venous hypertension (idiopathic) with ulcer of bilateral lower extremity (principal); L97.312 Non-pressure chronic ulcer of right ankle with fat layer exposed; L97.322 Non-pressure chronic ulcer of left ankle with fat layer exposed; J44.9 Chronic obstructive pulmonary disease, unspecified; G89.4 Chronic pain syndrome; M10.9 Gout, unspecified; K21.9 Gastro-esophageal reflux disease without esophagitis; M19.90 Unspecified osteoarthritis, unspecified site; Z90.710 Acquired absence of both cervix and uterus; Z90.49 Acquired absence of other specified parts of digestive tract
CPT/HCPCS: 11042; 11045

== ENCOUNTER → 2018-02-06 | Outpatient (CLI) | payer MEDICARE ==
[2017-12-18 11:00] VITALS: BP 116/66
== END | disposition home or self-care (01) ==
LOC: PMGWOUND 08:03
PROVIDERS: ATTEND Emergency Medicine Undersea and Hyperbaric Medicine
DX: I87.313 Chronic venous hypertension (idiopathic) with ulcer of bilateral lower extremity (principal); L97.312 Non-pressure chronic ulcer of right ankle with fat layer exposed; L97.322 Non-pressure chronic ulcer of left ankle with fat layer exposed; G89.4 Chronic pain syndrome; J44.9 Chronic obstructive pulmonary disease, unspecified; M10.9 Gout, unspecified; E53.8 Deficiency of other specified B group vitamins; K21.9 Gastro-esophageal reflux disease without esophagitis; M19.90 Unspecified osteoarthritis, unspecified site; Z90.49 Acquired absence of other specified parts of digestive tract; Z90.710 Acquired absence of both cervix and uterus; Z88.5 Allergy status to narcotic agent; Z88.1 Allergy status to other antibiotic agents; Z88.3 Allergy status to other anti-infective agents; Z88.0 Allergy status to penicillin; Z88.2 Allergy status to sulfonamides; Z88.8 Allergy status to other drugs, medicaments and biological substances
CPT/HCPCS: 97597; 97598

== ENCOUNTER → 2018-02-13 | Outpatient (CLI) | payer MEDICARE ==
[2017-12-18 11:00] VITALS: BP 116/66
== END | disposition home or self-care (01) ==
LOC: PMGWOUND 08:23
PROVIDERS: ATTEND Emergency Medicine Undersea and Hyperbaric Medicine
DX: I87.313 Chronic venous hypertension (idiopathic) with ulcer of bilateral lower extremity (principal); L97.322 Non-pressure chronic ulcer of left ankle with fat layer exposed; L97.312 Non-pressure chronic ulcer of right ankle with fat layer exposed; G89.4 Chronic pain syndrome; J44.9 Chronic obstructive pulmonary disease, unspecified; K21.9 Gastro-esophageal reflux disease without esophagitis; M10.9 Gout, unspecified; M19.90 Unspecified osteoarthritis, unspecified site; Z90.710 Acquired absence of both cervix and uterus; Z90.49 Acquired absence of other specified parts of digestive tract
CPT/HCPCS: 97597; 97598

== ENCOUNTER → 2018-02-20 | Outpatient (CLI) | payer MEDICARE ==
[2017-12-18 11:00] VITALS: BP 116/66
== END | disposition home or self-care (01) ==
LOC: PMGWOUND 08:00
PROVIDERS: ATTEND Emergency Medicine Undersea and Hyperbaric Medicine
DX: I87.313 Chronic venous hypertension (idiopathic) with ulcer of bilateral lower extremity (principal); L97.312 Non-pressure chronic ulcer of right ankle with fat layer exposed; L97.322 Non-pressure chronic ulcer of left ankle with fat layer exposed; G89.4 Chronic pain syndrome; J44.9 Chronic obstructive pulmonary disease, unspecified; K21.9 Gastro-esophageal reflux disease without esophagitis; M10.9 Gout, unspecified; M19.90 Unspecified osteoarthritis, unspecified site; Z90.710 Acquired absence of both cervix and uterus; Z90.49 Acquired absence of other specified parts of digestive tract
CPT/HCPCS: 11042; 11045

== ENCOUNTER → 2018-03-01 | Outpatient (CLI) | payer MEDICARE ==
[2017-12-18 11:00] VITALS: BP 116/66
--- NOTE | 2018-03-02 12:28 | RAD ---
MR#: [id number] Date of Study: 03/01/2018 Ordering Physician: LUIGI BARDALES, Referring Physician: Hiren DUDLEY: Blanca Powell RDMS RVT APPROVED REPORT Bilateral Lower Extremity Venous Study for DVT Patient Location: OUT-PATIENT Indications VENOUS INSUFFICIENCY Findings Grayscale images of the bilateral lower extent B deep veins do not reveal any obvious evidence of thr ombus and there is appropriate compressibility. Incidental note is made of a right groin enlarged lymph node measuring 4.2 x 1.3 x 4.0 cm. Further ev aluation with repeat testing would be and gated Spectral waveforms and color Doppler throughout the bilateral lower extremity deep veins do not show any evidence of thrombus. Critical Notification Critical Value: No <Conclusion> 1. Negative for DVT in the bilateral lower extremity 2. Enlarged lymph node in the right groin as noted above would recommend repeat groin ultrasound scan in 3 months to ensure that it is not progressing. Clinical correlation recommended Signed by : Ladarius Robles, Electronically Approved : 03/02/2018 12:27:52
== END | disposition home or self-care (01) ==
LOC: US 15:00
PROVIDERS: ATTEND Internal Medicine Cardiovascular Disease
DX: I87.2 Venous insufficiency (chronic) (peripheral) (principal); R59.0 Localized enlarged lymph nodes
CPT/HCPCS: 93970

== ENCOUNTER → 2018-03-06 | Outpatient (CLI) | payer MEDICARE ==
[2017-12-18 11:00] VITALS: BP 116/66
== END | disposition home or self-care (01) ==
LOC: PMGWOUND 08:00
PROVIDERS: ATTEND Emergency Medicine Undersea and Hyperbaric Medicine
DX: I87.313 Chronic venous hypertension (idiopathic) with ulcer of bilateral lower extremity (principal); L97.312 Non-pressure chronic ulcer of right ankle with fat layer exposed; L97.322 Non-pressure chronic ulcer of left ankle with fat layer exposed; J44.9 Chronic obstructive pulmonary disease, unspecified; G89.4 Chronic pain syndrome; M10.9 Gout, unspecified; K21.9 Gastro-esophageal reflux disease without esophagitis; M19.90 Unspecified osteoarthritis, unspecified site; Z90.710 Acquired absence of both cervix and uterus; Z90.49 Acquired absence of other specified parts of digestive tract
CPT/HCPCS: 97597; 97598

== ENCOUNTER → 2018-03-13 | Outpatient (CLI) | payer MEDICARE ==
[2017-12-18 11:00] VITALS: BP 116/66
== END | disposition home or self-care (01) ==
LOC: PMGWOUND 08:01
PROVIDERS: ATTEND Emergency Medicine Undersea and Hyperbaric Medicine
DX: I87.313 Chronic venous hypertension (idiopathic) with ulcer of bilateral lower extremity (principal); L97.312 Non-pressure chronic ulcer of right ankle with fat layer exposed; L97.322 Non-pressure chronic ulcer of left ankle with fat layer exposed; G89.4 Chronic pain syndrome; M10.9 Gout, unspecified; J44.9 Chronic obstructive pulmonary disease, unspecified; K21.9 Gastro-esophageal reflux disease without esophagitis; M19.90 Unspecified osteoarthritis, unspecified site; Z90.710 Acquired absence of both cervix and uterus; Z90.49 Acquired absence of other specified parts of digestive tract
CPT/HCPCS: 97597; 97598

== ENCOUNTER → 2018-03-20 | Outpatient (CLI) | payer MEDICARE ==
[2017-12-18 11:00] VITALS: BP 116/66
[~2018-03-20] MED LIST changes: +HYDR-3164 PO; -HYDR-971 PO
== END | disposition home or self-care (01) ==
LOC: PMGWOUND 08:05
PROVIDERS: ATTEND Emergency Medicine Undersea and Hyperbaric Medicine
DX: I87.313 Chronic venous hypertension (idiopathic) with ulcer of bilateral lower extremity (principal); L97.312 Non-pressure chronic ulcer of right ankle with fat layer exposed; L97.322 Non-pressure chronic ulcer of left ankle with fat layer exposed; G89.4 Chronic pain syndrome; M10.9 Gout, unspecified; J44.9 Chronic obstructive pulmonary disease, unspecified; K21.9 Gastro-esophageal reflux disease without esophagitis; M19.90 Unspecified osteoarthritis, unspecified site; Z90.49 Acquired absence of other specified parts of digestive tract; Z90.710 Acquired absence of both cervix and uterus
CPT/HCPCS: 97597; 97598

== ENCOUNTER → 2018-03-27 | Outpatient (CLI) | payer MEDICARE ==
[2017-12-18 11:00] VITALS: BP 116/66
[~2018-03-27] MED LIST changes: -OXYC-328 PO; +OXYC1TAB22 PO
== END | disposition home or self-care (01) ==
LOC: PMGWOUND 08:07
PROVIDERS: ATTEND Emergency Medicine Undersea and Hyperbaric Medicine
DX: I87.313 Chronic venous hypertension (idiopathic) with ulcer of bilateral lower extremity (principal); L97.312 Non-pressure chronic ulcer of right ankle with fat layer exposed; L97.322 Non-pressure chronic ulcer of left ankle with fat layer exposed; G89.4 Chronic pain syndrome; M10.9 Gout, unspecified; J44.9 Chronic obstructive pulmonary disease, unspecified; K21.9 Gastro-esophageal reflux disease without esophagitis; M19.90 Unspecified osteoarthritis, unspecified site; Z90.710 Acquired absence of both cervix and uterus; Z90.49 Acquired absence of other specified parts of digestive tract
CPT/HCPCS: 11042; 11045

== ENCOUNTER → 2018-04-03 | Outpatient (CLI) | payer MEDICARE ==
[2017-12-18 11:00] VITALS: BP 116/66
[~2018-04-03] MED LIST changes: -GABA-586 PO; +GABA300C18 PO
== END | disposition home or self-care (01) ==
LOC: PMGWOUND 08:00
PROVIDERS: ATTEND Emergency Medicine Undersea and Hyperbaric Medicine
DX: I87.313 Chronic venous hypertension (idiopathic) with ulcer of bilateral lower extremity (principal); L97.312 Non-pressure chronic ulcer of right ankle with fat layer exposed; L97.322 Non-pressure chronic ulcer of left ankle with fat layer exposed; G89.4 Chronic pain syndrome; M10.9 Gout, unspecified; M19.90 Unspecified osteoarthritis, unspecified site; Z90.710 Acquired absence of both cervix and uterus; Z90.49 Acquired absence of other specified parts of digestive tract
CPT/HCPCS: 97597; 97598; 99215

== ENCOUNTER → 2018-04-10 | Outpatient (CLI) | payer MEDICARE ==
[2017-12-18 11:00] VITALS: BP 116/66
== END | disposition home or self-care (01) ==
LOC: PMGWOUND 08:02
PROVIDERS: ATTEND Emergency Medicine Undersea and Hyperbaric Medicine
DX: I87.313 Chronic venous hypertension (idiopathic) with ulcer of bilateral lower extremity (principal); L97.312 Non-pressure chronic ulcer of right ankle with fat layer exposed; L97.322 Non-pressure chronic ulcer of left ankle with fat layer exposed; G89.4 Chronic pain syndrome; M10.9 Gout, unspecified; M19.90 Unspecified osteoarthritis, unspecified site; J44.9 Chronic obstructive pulmonary disease, unspecified; K21.9 Gastro-esophageal reflux disease without esophagitis; Z90.49 Acquired absence of other specified parts of digestive tract; Z90.710 Acquired absence of both cervix and uterus
CPT/HCPCS: 97597; 97598

== ENCOUNTER → 2018-04-17 | Outpatient (CLI) | payer MEDICARE ==
[2017-12-18 11:00] VITALS: BP 116/66
== END | disposition home or self-care (01) ==
LOC: PMGWOUND 09:07
PROVIDERS: ATTEND Emergency Medicine Undersea and Hyperbaric Medicine
DX: I87.313 Chronic venous hypertension (idiopathic) with ulcer of bilateral lower extremity (principal); L97.312 Non-pressure chronic ulcer of right ankle with fat layer exposed; L97.322 Non-pressure chronic ulcer of left ankle with fat layer exposed; G89.4 Chronic pain syndrome; M10.9 Gout, unspecified; K21.9 Gastro-esophageal reflux disease without esophagitis; J44.9 Chronic obstructive pulmonary disease, unspecified; M19.90 Unspecified osteoarthritis, unspecified site; Z90.710 Acquired absence of both cervix and uterus; Z90.49 Acquired absence of other specified parts of digestive tract
CPT/HCPCS: 97597; 97598

== ENCOUNTER 2018-04-27 08:41 | Day surgery (SDC) | payer MEDICARE ==
[~2018-04-27] VITALS: Ht 175.3 cm; Wt 65.3 kg
[~2018-04-27 08:41] MED LIST changes: +HYDROmorphone 2 MG/ML VIAL IV PRN; +IV RINGERS,LACTATED 1000ML 1,000 ML IV SCH; +LIDOCAINE 1% PF 2 ML VIAL. ID PRN; +METH5TAB2 PO; +MORPHINE SULFATE 4 MG/ML VIAL. IV PRN; +ONDANSETRON PF 4 MG/2 ML VIAL. IV PRN; +PROCHLORPERAZINE 10 MG/2 ML VIAL. IV PRN; +[UNRECOGNIZED DRUG - CODE] PO; +[UNRECOGNIZED DRUG - OTHER] PO
[2018-04-27 09:04] LABS: U PREG PATIENT NEGATIVE (NEG)
[2018-04-27] MEDS ORDERED: BUPIVAC MPF-EPI 0.5%-1:200000 30 ML VIAL. ONE (09:19)
[2018-04-27] MEDS ORDERED: MIDAZOLAM HCL/PF 2 MG/2 ML VIAL. ONE (09:33)
[2018-04-27] MEDS ORDERED: fentaNYL PF VIAL 100 MCG/2 ML VIAL ONE (09:33)
--- NOTE | 2018-04-27 10:19 | PDOC4 ---
Operative Note Operative Note Date: 28/06/2017 Preoperative diagnosis: Right groin lymphadenopathy Postoperative diagnosis: Same Procedure: Right groin lymph node biopsy Surgeon: Rad Specimen: Right groin lymph nodes Dictation: Patient is a 47-year-old female has had enlarged lymph nodes in the right groin by ultrasound somewhat tender abdomen present for several months. Procedure of biopsy right groin lymph nodes was explained to the patient detail risk benefits were also discussed including bleeding infection alternatives to this procedure also discussed with the patient is seemed to understand gerardo verbal and written consent to have the procedure performed. Patient was taken to the operating room was in supine position general anesthesia was initiated was patient asleep and intubated her right groin was prepped and draped usual sterile fashion using ChloraPrep and area over the right groin was injected with quarter percent Marcaine with epinephrine incision was made with 15 blade scalpel was carried down through the subcutaneous tissue using electrocautery divided hemostasis lymph nodes were encountered several enlarged proximally for these were excised completely and sent for pathology as fresh specimen. The wound was then closed in 2 layers a deep layer running 3-0 Vicryl the skin was reapproximate for septic and a Monocryl Mastisol Steri-Strips and island dressing were applied. The patient was awakened and extubated in the operating room taken to recovery in stable condition all sponge instrument needle counts listed as correct estimated blood loss 5 mL ZENOBIA GRIMALDO MD Apr 27, 2018 10:19 am
--- NOTE | 2018-04-27 10:20 | DISCH ---
DISCHARGE INSTRUCTIONS Condition on Discharge Condition on Discharge: Stable Activity After Discharge Activity Instructions for Disc: Activity as tolerated Bathing Instructions: Shower-keep dressing dry Diet after Discharge Diet after Discharge: Regular Diet Texture: Regular Wound Incision Care Wound/Incision Care: Keep wound elevated, Change dressing Other wound/incision instructi: May shower in 24 hours Contacting the DROmi after DC Call your doctor for: If your condition worsens Follow-Up Follow up with: Dr. Grimaldo in 2 weeks Treatment/Equipment after DC Adaptive Equipment Issued: None ZEONBIA GRIMALDO MD Apr 27, 2018 10:20 am
[2018-04-27] MEDS ORDERED: HYDR-3164 PO (10:35)
[2018-04-27 11:26] VITALS: BP 124/76
--- NOTE | 2018-04-30 15:07 | PATHOLOGY ---
[facility] Accession Number: [id number] . 01 Material submitted: . RIGHT INGUINAL BIOPSY . 01 Clinical history: . Inguinal lymphadenitis, evaluate for lymphoma . 02 Diagnosis: Lymph nodes and fibroadipose tissue, right inguinal biopsy: - Reactive lymphoid hyperplasia, mixed pattern. See comment. . (JPM/at;04/30/2018) . QTA/04/30/2018 . 02 Comment: - Sections of the inguinal biopsy reveal fibroadipose tissue containing multiple lymph nodes. The lymph nodes contain lymphoid follicles within the cortex which possess reactive germinal centers which are surrounded by mantle zones. There are foci of paracortical hyperplasia. There is mild sinus histiocytosis. Plasma cells are identified within the medullary regions. - A portion of the lymph node is submitted for lymphocyte markers by flow cytometry and has a viability of 99.6%. Lymphocytes comprise 99.0% total cells. T-cells comprise 47% of lymphoid cells and show a CD4/CD8 ratio of 3.9. NK-cells comprise 2% of lymphoid cells. Mature B-cells comprise 51% of lymphoid cells and are polyclonal with a Ronce[place]: Lambda ratio of 1.4. - The morphologic and immunophenotypic findings are supportive of the diagnosis of reactive lymphoid hyperplasia, mixed pattern. There is no evidence of malignancy. . (JPM/at;04/30/2018) . 02 Electronically signed: . Shaji Dutton MD, Pathologist NPI- [id number] . 01 Gross description: . The specimen is received fresh and is designated "right inguinal biopsy". This consists of a roughly ovoid-shaped segment of yellow-red fatty tissue measuring up to 4.3 x 3.0 x 0.7 cm in greatest dimension. The specimen is bisected. There are multiple pinkish brown soft lymph nodes within the specimen. These range from 0.3 cm up to 2.1 cm in greatest dimension. Two touch preparations are made and submitted for H and E staining. A nutrition representative portion of lymph nodes is submitted fresh for lymphocyte marker studies by flow cytometry. The remainder of the lymph nodes is submitted for microscopy as A1-A3. (JPM:randee; 04/27/2018) . . Touch preparations are performed at [facility], [address] [place] [address]. /QMS . 02 Pathologist provided ICD-10: I88.9 . 02 CPT . 227476, [id number] Specimen Comment: A courtesy copy of this report has been sent to Specimen Comment: [phone], . Specimen Comment: Report sent to / DR SANTA Specimen Comment: A duplicate report has been generated due to demographic updates. Performed at: [address] [facility] [address], [place], [place] [id number] MD Anibal Taylor MD Phone: [phone] Performed at: [facility] [address], [place] [id number] MD Shaji Dutton MD Phone: [phone]
== END 2018-04-27 11:31 | disposition home or self-care (01) ==
LOC: SURG 08:41
PROVIDERS: ATTEND Surgery
DX: I88.8 Other nonspecific lymphadenitis (principal); Z88.0 Allergy status to penicillin; Z88.1 Allergy status to other antibiotic agents; Z88.6 Allergy status to analgesic agent; Z88.8 Allergy status to other drugs, medicaments and biological substances; Z79.899 Other long term (current) drug therapy; D57.1 Sickle-cell disease without crisis; Z90.49 Acquired absence of other specified parts of digestive tract; Z98.890 Other specified postprocedural states; Z82.49 Family history of ischemic heart disease and other diseases of the circulatory system
CPT/HCPCS: 38500; 81025; 88184; 88185; A7015; J1956; J2250; J3010; J3490; 88307

== ENCOUNTER → 2018-05-03 | Outpatient (CLI) | payer MEDICARE ==
[2018-04-27 11:26] VITALS: BP 124/76
[~2018-05-03] MED LIST changes: -HYDROmorphone 2 MG/ML VIAL IV PRN; -IV RINGERS,LACTATED 1000ML 1,000 ML IV SCH; -LIDOCAINE 1% PF 2 ML VIAL. ID PRN; -MORPHINE SULFATE 4 MG/ML VIAL. IV PRN; -ONDANSETRON PF 4 MG/2 ML VIAL. IV PRN; -PROCHLORPERAZINE 10 MG/2 ML VIAL. IV PRN
== END | disposition home or self-care (01) ==
LOC: PMGWOUND 08:18
PROVIDERS: ATTEND Emergency Medicine Undersea and Hyperbaric Medicine
DX: I87.313 Chronic venous hypertension (idiopathic) with ulcer of bilateral lower extremity (principal); L97.312 Non-pressure chronic ulcer of right ankle with fat layer exposed; L97.322 Non-pressure chronic ulcer of left ankle with fat layer exposed; G89.4 Chronic pain syndrome; M10.9 Gout, unspecified; J44.9 Chronic obstructive pulmonary disease, unspecified; K21.9 Gastro-esophageal reflux disease without esophagitis; M19.90 Unspecified osteoarthritis, unspecified site; Z90.49 Acquired absence of other specified parts of digestive tract; Z90.710 Acquired absence of both cervix and uterus
CPT/HCPCS: 97597; 97598

== ENCOUNTER → 2018-05-17 | Outpatient (CLI) | payer MEDICARE ==
[2018-04-27 11:26] VITALS: BP 124/76
== END | disposition home or self-care (01) ==
LOC: PMGWOUND 08:15
PROVIDERS: ATTEND Emergency Medicine Undersea and Hyperbaric Medicine
DX: I87.313 Chronic venous hypertension (idiopathic) with ulcer of bilateral lower extremity (principal); L97.312 Non-pressure chronic ulcer of right ankle with fat layer exposed; L97.322 Non-pressure chronic ulcer of left ankle with fat layer exposed; M10.9 Gout, unspecified; G89.4 Chronic pain syndrome; M19.90 Unspecified osteoarthritis, unspecified site; J44.9 Chronic obstructive pulmonary disease, unspecified; K21.9 Gastro-esophageal reflux disease without esophagitis; Z90.710 Acquired absence of both cervix and uterus; Z90.49 Acquired absence of other specified parts of digestive tract
CPT/HCPCS: 99215

== ENCOUNTER → 2018-05-31 | Outpatient (CLI) | payer MEDICARE | END | disposition home or self-care (01) | LOC: PMGWOUND 08:10 | PROVIDERS: ATTEND Preventive Medicine Undersea and Hyperbaric Medicine | DX: I87.313 Chronic venous hypertension (idiopathic) with ulcer of bilateral lower extremity (principal); L97.312 Non-pressure chronic ulcer of right ankle with fat layer exposed; L97.322 Non-pressure chronic ulcer of left ankle with fat layer exposed; G89.4 Chronic pain syndrome; M10.9 Gout, unspecified; J44.9 Chronic obstructive pulmonary disease, unspecified; K21.9 Gastro-esophageal reflux disease without esophagitis; M19.90 Unspecified osteoarthritis, unspecified site; Z90.710 Acquired absence of both cervix and uterus; Z90.49 Acquired absence of other specified parts of digestive tract | CPT/HCPCS: 97597; 97598 ==

== ENCOUNTER → 2018-06-14 | Outpatient (CLI) | payer MEDICARE | END | disposition home or self-care (01) | LOC: PMGWOUND 08:13 | PROVIDERS: ATTEND Emergency Medicine Undersea and Hyperbaric Medicine | DX: I87.313 Chronic venous hypertension (idiopathic) with ulcer of bilateral lower extremity (principal); L97.312 Non-pressure chronic ulcer of right ankle with fat layer exposed; L97.322 Non-pressure chronic ulcer of left ankle with fat layer exposed; G89.4 Chronic pain syndrome; M10.9 Gout, unspecified; M19.90 Unspecified osteoarthritis, unspecified site; J44.9 Chronic obstructive pulmonary disease, unspecified; K21.9 Gastro-esophageal reflux disease without esophagitis; Z90.710 Acquired absence of both cervix and uterus; Z90.49 Acquired absence of other specified parts of digestive tract | CPT/HCPCS: 11042 ==

== ENCOUNTER → 2018-06-28 | Outpatient (CLI) | payer MEDICARE | END | disposition home or self-care (01) | LOC: PMGWOUND 08:55 | PROVIDERS: ATTEND Emergency Medicine Undersea and Hyperbaric Medicine | DX: I87.313 Chronic venous hypertension (idiopathic) with ulcer of bilateral lower extremity (principal); L97.312 Non-pressure chronic ulcer of right ankle with fat layer exposed; L97.322 Non-pressure chronic ulcer of left ankle with fat layer exposed; G89.4 Chronic pain syndrome; M10.9 Gout, unspecified; M19.90 Unspecified osteoarthritis, unspecified site; J44.9 Chronic obstructive pulmonary disease, unspecified; K21.9 Gastro-esophageal reflux disease without esophagitis; Z90.710 Acquired absence of both cervix and uterus; Z90.49 Acquired absence of other specified parts of digestive tract | CPT/HCPCS: 97597; 97598 ==

== ENCOUNTER → 2018-07-05 | Outpatient (CLI) | payer MEDICARE | END | disposition home or self-care (01) | LOC: PMGWOUND 08:07 | PROVIDERS: ATTEND Emergency Medicine Undersea and Hyperbaric Medicine | DX: I87.313 Chronic venous hypertension (idiopathic) with ulcer of bilateral lower extremity (principal); L97.312 Non-pressure chronic ulcer of right ankle with fat layer exposed; L97.322 Non-pressure chronic ulcer of left ankle with fat layer exposed; M10.9 Gout, unspecified; G89.4 Chronic pain syndrome; I10 Essential (primary) hypertension; M19.90 Unspecified osteoarthritis, unspecified site; J44.9 Chronic obstructive pulmonary disease, unspecified; K21.9 Gastro-esophageal reflux disease without esophagitis; Z90.710 Acquired absence of both cervix and uterus; Z90.49 Acquired absence of other specified parts of digestive tract | CPT/HCPCS: 97597; 97598 ==

== ENCOUNTER → 2018-07-12 | Outpatient (CLI) | payer MEDICARE | END | disposition home or self-care (01) | LOC: PMGWOUND 08:09 | PROVIDERS: ATTEND Emergency Medicine Undersea and Hyperbaric Medicine | DX: I87.313 Chronic venous hypertension (idiopathic) with ulcer of bilateral lower extremity (principal); L97.312 Non-pressure chronic ulcer of right ankle with fat layer exposed; L97.322 Non-pressure chronic ulcer of left ankle with fat layer exposed; M10.9 Gout, unspecified; G89.4 Chronic pain syndrome; J44.9 Chronic obstructive pulmonary disease, unspecified; K21.9 Gastro-esophageal reflux disease without esophagitis; M19.90 Unspecified osteoarthritis, unspecified site; Z90.710 Acquired absence of both cervix and uterus; Z90.49 Acquired absence of other specified parts of digestive tract | CPT/HCPCS: 97597; 97598 ==

== ENCOUNTER → 2018-07-19 | Outpatient (CLI) | payer MEDICARE | END | disposition home or self-care (01) | LOC: PMGWOUND 08:05 | PROVIDERS: ATTEND Emergency Medicine Undersea and Hyperbaric Medicine | DX: I87.313 Chronic venous hypertension (idiopathic) with ulcer of bilateral lower extremity (principal); L97.312 Non-pressure chronic ulcer of right ankle with fat layer exposed; L97.322 Non-pressure chronic ulcer of left ankle with fat layer exposed; G89.4 Chronic pain syndrome; M10.9 Gout, unspecified; M19.90 Unspecified osteoarthritis, unspecified site; J44.9 Chronic obstructive pulmonary disease, unspecified; K21.9 Gastro-esophageal reflux disease without esophagitis; Z90.710 Acquired absence of both cervix and uterus; Z90.49 Acquired absence of other specified parts of digestive tract | CPT/HCPCS: 97597; 97598 ==

== ENCOUNTER → 2018-07-26 | Outpatient (CLI) | payer MEDICARE | END | disposition home or self-care (01) | LOC: PMGWOUND 08:05 | PROVIDERS: ATTEND Emergency Medicine Undersea and Hyperbaric Medicine | DX: I87.313 Chronic venous hypertension (idiopathic) with ulcer of bilateral lower extremity (principal); L97.312 Non-pressure chronic ulcer of right ankle with fat layer exposed; L97.322 Non-pressure chronic ulcer of left ankle with fat layer exposed; G89.4 Chronic pain syndrome; M10.9 Gout, unspecified; M19.90 Unspecified osteoarthritis, unspecified site; J44.9 Chronic obstructive pulmonary disease, unspecified; K21.9 Gastro-esophageal reflux disease without esophagitis; Z90.49 Acquired absence of other specified parts of digestive tract; Z90.710 Acquired absence of both cervix and uterus | CPT/HCPCS: 97597; 97598 ==

== ENCOUNTER → 2018-10-12 | Outpatient (CLI) | payer MEDICARE ==
[2018-10-03 13:18] VITALS: BP 113/61
[~2018-10-12] MED LIST changes: +MONT10TA49 PO; -MONT10TA9 PO
--- NOTE | 2018-10-15 14:50 | RAD ---
MR#: [id number] Date of Study: 10/12/2018 Ordering Physician: LUIGI BARDALES, Referring Physician: LUIGI BARDALES, Tech: Carolyn Patiño RDMS, LYNNT, RTR APPROVED REPORT Patient Location : OUT-PATIENT Indications Venous Ulcers Findings Kenney scale images of the bilateral lesser saphenous veins demonstrates no obvious thrombus. The R LSV does not show any evidence of reflux The L LSV has a mild element of reflux, likely in the order of 1.2 seconds. There are multiple leg perforators as follows: Left lateral ankle wound: 18 cm up measuring 3.7 mm and with 1.4 seconds of reflux 6 cm up measuring 2.6 mm and with 1.0 second of reflux Left medial ankle wound: 8 cm up with a reflux time of 1.2 seconds and measures 3mm Right medial ankle wound: 15 cm up with a reflux time of 1.4 seconds and measure 3.8 mm 7 cm up measuring 2.7 mm but unable to quantify reflux ti me accurately. Critical Notification Critical Value: No <Conclusion> 1. Mild reflux in the left lesser saphenous vein 2. Multiple calf/ankle perforators as noted above with significant reflux. Signed by : Ladarius Robles, Electronically Approved : 10/15/2018 14:49:52
== END | disposition home or self-care (01) ==
LOC: US 12:51
PROVIDERS: ATTEND Internal Medicine Cardiovascular Disease
DX: I87.8 Other specified disorders of veins (principal); S91.002A Unspecified open wound, left ankle, initial encounter; S91.001A Unspecified open wound, right ankle, initial encounter; X58.XXXA Exposure to other specified factors, initial encounter; Y93.89 Activity, other specified; Y92.89 Other specified places as the place of occurrence of the external cause; Y99.8 Other external cause status
CPT/HCPCS: 93970

== ENCOUNTER → 2019-04-18 | Outpatient (CLI) | payer MEDICARE ==
[2018-10-03 13:18] VITALS: BP 113/61
[~2019-04-18] MED LIST changes: +CYAN-25 PO; -CYAN10005 PO; +MORP-15 PO; -MORP15TA3 PO
--- NOTE | 2019-04-18 12:28 | CARD ---
MR#: [id number] Date of Study: 04/18/2019 Ordering Physician: LUIGI BARDALES, Referring Physician: LUIGI BARDALES Tech: Sara Aguirre RDCS APPROVED REPORT EXAM: Two-dimensional and M-mode echocardiogram with Doppler and color Doppler. Other Information Quality : Good INDICATION Hypertension/HCVD 2D DIMENSIONS RVDd1.8 (2.9-3.5cm)Left Atrium(2D)3.5 (1.6-4.0cm) IVSd0.9 (0.7-1.1cm)Aortic Root(2D)2.6 (2.0-3.7cm) LVDd5.7 (3.9-5.9cm)LVOT Diameter2.0 (1.8-2.4cm) PWd0.9 (0.7-1.1cm)LVDs3.1 (2.5-4.0cm) FS (%) 30.0 %SV124.3 ml LVEF(%)60.0 (>50%) Aortic Valve AoV Peak Marvin.191.5cm/sAoV VTI35.1cm AO Peak GR.14.7mmHgLVOT Peak Marvin.157.1cm/s LVOT VTI 31.16cmAO Mean GR.8mmHg VANITA (VMAX)2.45rk1MCF (VTI)2.83cm2 Mitral Valve MV E Qecpmjuy525.0cm/sMV DECEL [id number] MV A Assbjaic80.2cm/sMV FJJ20co E/A Ratio1.6MVA (PHT)3.31cm2 TDI E/Lateral E'15.5E/Medial E'18.9 Tricuspid Valve TR P. Uwlgneiu251jv/sRAP NGLJRVRT6rmFf TR Peak Gr.33wnVwNRYJ75hvPd Pulmonary Vein S1 Rvcukpeh90.7cm/sD2 Svjavygc46.6cm/s LEFT VENTRICLE The left ventricle is normal size. There is normal left ventricular wall thickness. The left ventricu lar systolic function is normal and the ejection fraction is within normal range. The Ejection Fracti on is 55-60%. There is normal LV segmental wall motion. The left ventricular diastolic function and f illing is normal for age. RIGHT VENTRICLE The right ventricle is normal size. The right ventricular systolic function is normal. ATRIA The left atrium size is normal. The right atrium size is normal. The interatrial septum is intact wit h no evidence for an atrial septal defect or patent foramen ovale as noted on 2-D or Doppler imaging. AORTIC VALVE The aortic valve is normal in structure and function. Doppler and Color Flow revealed no significant aortic regurgitation. There is no significant aortic valvular stenosis. MITRAL VALVE The mitral valve is normal in structure and function. There is no evidence of mitral valve prolapse. There is no mitral valve stenosis. Doppler and Color-flow revealed mild mitral regurgitation. TRICUSPID VALVE The tricuspid valve is normal in structure and function. Doppler and Color Flow revealed mild tricusp id regurgitation. The PA pressure was estimated at 48 mmHg. There is no tricuspid valve stenosis. PULMONIC VALVE The pulmonic valve is not well visualized. Doppler and Color Flow revealed no pulmonic valvular regur gitation. There is no pulmonic valvular stenosis. GREAT VESSELS The aortic root is normal in size. The ascending aorta is mildly dilated 3.5 cm. The IVC is normal in size and collapses >50% with inspiration. PERICARDIAL EFFUSION There is no evidence of significant pericardial effusion. Critical Notification Critical Value: No <Conclusion> The left ventricle is normal size. The left ventricular systolic function is normal and the ejection fraction is within normal range. The Ejection Fraction is 55-60%. There is normal left ventricular wall thickness. There is normal LV segmental wall motion. Doppler and Color Flow revealed no significant aortic regurgitation. There is no significant aortic valvular stenosis. Doppler and Color-flow revealed mild mitral regurgitation. Doppler and Color Flow revealed mild tricuspid regurgitation. The PA pressure was estimated at 48 mmHg. Signed by : Paul Ernst MD Electronically Approved : 04/18/2019 12:28:23
== END | disposition home or self-care (01) ==
LOC: ECHO 10:53
PROVIDERS: ATTEND Internal Medicine Cardiovascular Disease
DX: I08.1 Rheumatic disorders of both mitral and tricuspid valves (principal); I11.9 Hypertensive heart disease without heart failure
CPT/HCPCS: 93306

== ENCOUNTER 2020-01-13 15:58 | Inpatient (IN) | payer MEDICARE, OTHER ==
[~2020-01-13] VITALS: Ht 175.3 cm; Wt 65.4 kg
[~2020-01-13 15:58] MED LIST changes: +ACET-2061 PO; -ACET325T16 PO; -CETI10TA22 PO; +CETI10TA74 PO; -OXYC15TA PO; +OXYC15TA3 PO
[2020-01-13] MEDS ORDERED: IV NORMAL SALINE 1000ML BAG 1,000 ML IV ONE (16:13)
[2020-01-13] MEDS ORDERED: ONDANSETRON PF 4 MG/2 ML VIAL. IV ONE (17:00)
[2020-01-13] MEDS ORDERED: MORPHINE SULFATE 4 MG/ML VIAL. IV ONE ×2 (17:00→19:15)
--- NOTE | 2020-01-13 17:28 | RAD ---
EXAMINATION: CHEST AP ONLY CLINICAL HISTORY: PUI, hx of sickle cell; chest pain EXAM DATE/TIME: 01/13/2020 5:09 PM COMPARISON: 10/03/2017 FINDINGS: Lines, tubes, and devices: None. Cardiomediastinal silhouette: Cardiomegaly, similar to prior study. Aortic atherosclerotic calcification. Lungs and pleura: No evidence of focal airspace consolidation or pleural effusion. Minimal bibasilar subsegmental atelectasis. Pulmonary vasculature unremarkable. Bones and soft tissues: No acute osseous abnormality. IMPRESSION: No evidence of acute cardiopulmonary abnormality or significant interval change. Electronically signed by: Alec Márquez DO (01/13/2020 5:26 PM) [id number]
[2020-01-13 17:45] LABS: BASO # 0.1 x10^3/uL (0.0-0.2); BASO % 1 % (0-3); EOS # 0.3 x10^3/uL (0.0-0.7); EOS % 1 % (0-3); HEMATOCRIT 22.2 % (36.0-47.0); HEMOGLOBIN 7.8 g/dL (12.0-15.5); LYMPH # 1.6 x10^3/uL (1.0-4.8); LYMPH % 9 % (24-48); MEAN CORPUSCULAR HEMOGLOBIN 34 pg (25-35); MEAN CORPUSCULAR HGB CONC 35 g/dL (31-37); MEAN CORPUSCULAR VOLUME 97 fL (79-100); MONO # 3.3 x10^3/uL (0.0-1.1); MONO % 18 % (0-9); NEUT # 12.5 x10^3/uL (1.8-7.7); NEUT % 71 % (31-73); PLATELET COUNT 312 x10^3/uL (140-400); RED BLOOD COUNT 2.29 x10^6/uL (3.50-5.40); RED CELL DISTRIBUTION WIDTH 17.2 % (11.5-14.5); WHITE BLOOD COUNT 17.7 x10^3/uL (4.0-11.0)
[2020-01-13 18:23] LABS: % BANDS 1 % (0-9); % BASOS 1 % (0-3); % EOS 1 % (0-5); % LYMPHS 10 % (24-48); % MONOS 14 % (0-10); % SEGS 73 % (35-66); NUCLEATED RBC 1; PLT ESTIMATE ADEQUATE (ADEQUATE); POIKILOCYTOSIS MOD; TOXIC VACUOLATION SLIGHT
[2020-01-13 18:24] LABS: ANISOCYTOSIS SLIGHT; SICKLE CELLS MOD; TARGET CELLS MOD
[2020-01-13 18:25] LABS: OVALOCYTES OCC; POLYCHROMASIA OCCASIONAL; SCHISTOCYTES FEW
[2020-01-13 18:26] LABS: ALBUMIN 3.9 g/dL (3.4-5.0); CREATININE 1.3 mg/dL (0.6-1.0); GFR 52.7; HYPOCHROMIA SLIGHT; TEAR DROP CELLS OCC
[2020-01-13 18:38] LABS: CALCIUM 8.5 mg/dL (8.5-10.1)
[2020-01-13 18:42] LABS: ALBUMIN/GLOBULIN RATIO 1.3 (1.0-1.7); TOTAL PROTEIN 6.8 g/dL (6.4-8.2)
[2020-01-13 18:57] LABS: C-REACTIVE PROTEIN 81.8 mg/L (0-3.3)
--- NOTE | 2020-01-13 19:17 | PHYS DOC ---
Past Medical History Past Medical History: Sickle Cell Disease, Other Additional Past Medical Histor: wound related to sickle cell Past Surgical History: Cholecystectomy Smoking Status: Never Smoker Alcohol Use: None Drug Use: None General Adult EDM: Chief Complaint: OTHER COMPLAINTS HPI: HPI: Patient is a 49 year old AA female who presents to the emergency department with complaints of a sickle cell crisis. She reports that she has had pain in both of her flanks and her entire back since yesterday morning at 6:00. She reports that she feels short of breath and she is also had a fever. She states that the highest has been is 101 degrees yesterday. She denies any abdominal pain, nausea, vomiting, diarrhea, chest pain, palpitations, cough, or sore throat. She denies any known exposure to COVID-19. Patient states she has been taking her oxycodone and her methadone at home with no benefit. She currently rates her pain a 10 out of 10 on the pain scale, she denies any alleviating or exacerbating factors Review of Systems: Review of Systems: Constitutional: See HPI Eyes: Denies change in visual acuity. [] HENT: Denies nasal congestion or sore throat. [] Respiratory: Denies cough or shortness of breath. [] Cardiovascular: Denies chest pain or edema. [] GI: Denies abdominal pain, nausea, vomiting, or diarrhea. [] : Denies dysuria, hematuria, or increased urinary frequency; reports bilateral flank pain see HPI. [] Musculoskeletal: See HPI Integument: Denies rash. [] Neurologic: Denies headache, focal weakness or sensory changes. [] Psychiatric: Denies depression or anxiety. [] Heart Score: Risk Factors: Risk Factors: DM, Current or recent (<one month) smoker, HTN, HLP, family history of CAD, obesity. Risk Scores: Score 0 - 3: 2.5% MACE over next 6 weeks - Discharge Home Score 4 - 6: 20.3% MACE over next 6 weeks - Admit for Clinical Observation Score 7 - 10: 72.7% MACE over next 6 weeks - Early Invasive Strategies Current Medications: Current Medications Medications (Trade) Dose Ordered Sig/Nilda Start Time Stop Time Status Last Admin Dose Admin Morphine Sulfate (Morphine Sulfate) 4 mg 1X ONCE 01/13/20 17:00 01/13/20 17:01 DC 01/13/20 17:28 4 MG Ondansetron HCl (Zofran) 4 mg 1X ONCE 01/13/20 17:00 01/13/20 17:01 DC 01/13/20 17:27 4 MG Sodium Chloride 1,000 ml @ 1,000 mls/hr Q1H ONCE 01/13/20 16:13 01/13/20 17:12 DC 01/13/20 17:27 1,000 MLS/HR Allergies: Allergies: Allergies Coded Allergies Type Severity Reaction Last Updated Verified Penicillins Allergy Intermediate Rash 07/19/19 Yes bacitracin Allergy Intermediate Rash 07/19/19 Yes bacitracin zinc Allergy Intermediate Rash 07/19/19 Yes clindamycin Allergy Intermediate Rash 07/19/19 Yes diltiazem Allergy Intermediate hives 07/19/19 Yes neomycin sulfate Allergy Intermediate Rash 07/19/19 Yes polymyxin B Allergy Intermediate Rash 07/19/19 Yes silver sulfadiazine Allergy Intermediate Unknown 09/03/19 Yes sulfamethoxazole Allergy Intermediate Unknown 09/03/19 Yes trimethoprim Allergy Intermediate UNK 09/03/19 Yes adhesive tape Allergy Mild UNK 09/03/19 Yes fentanyl Adverse Reaction Intermediate UNK 09/03/19 Yes Physical Exam: PE: Constitutional: Well developed, well nourished, mild distress, appears uncomfortable HENT: Normocephalic, atraumatic, bilateral external ears normal, nose normal. [] Eyes: PERRLA, EOMI, conjunctiva normal, no discharge. [] Neck: Normal range of motion, no stridor. [] Cardiovascular:Heart rate regular rhythm Lungs & Thorax: Respirations even and unlabored, no retractions, no respiratory distress. Lungs CTA Abdomen: soft, no tenderness Skin: Warm, dry, no erythema, no rash. [] Extremities: No cyanosis, ROM intact, no edema. [] Neurologic: Alert and oriented X 3, no focal deficits noted. [] Psychologic: Affect normal, judgement normal, mood normal. [] Current Patient Data: Labs: Laboratory Tests Test 01/13/20 17:01 01/13/20 17:30 POC Urine HCG, Qualitative Hcg negative (Negative) White Blood Count 17.7 x10^3/uL (4.0-11.0) H Red Blood Count 2.34 x10^6/uL (3.50-5.70) L Hemoglobin 7.8 g/dL (12.0-15.5) L Hematocrit 22.2 % (36.0-47.0) L Mean Corpuscular Volume 97 fL (79-100) Mean Corpuscular Hemoglobin 34 pg (25-35) Mean Corpuscular Hemoglobin Concent 35 g/dL (31-37) Red Cell Distribution Width 17.2 % (11.5-14.5) H Platelet Count 312 x10^3/uL (140-400) Neutrophils (%) (Auto) 71 % (31-73) Lymphocytes (%) (Auto) 9 % (24-48) L Monocytes (%) (Auto) 18 % (0-9) H Eosinophils (%) (Auto) 1 % (0-3) Basophils (%) (Auto) 1 % (0-3) Neutrophils # (Auto) 12.5 x10^3/uL (1.8-7.7) H Lymphocytes # (Auto) 1.6 x10^3/uL (1.0-4.8) Monocytes # (Auto) 3.3 x10^3/uL (0.0-1.1) H Eosinophils # (Auto) 0.3 x10^3/uL (0.0-0.7) Basophils # (Auto) 0.1 x10^3/uL (0.0-0.2) Segmented Neutrophils % 73 % (35-66) H Band Neutrophils % 1 % (0-9) Lymphocytes % 10 % (24-48) L Monocytes % 14 % (0-10) H Eosinophils % 1 % (0-5) Basophils % 1 % (0-3) Nucleated Red Blood Cells 1 Toxic Vacuolation Slight Platelet Estimate Adequate (ADEQUATE) Large Platelets Occ Giant Platelets Few Polychromasia Occasional Hypochromasia Slight Poikilocytosis Mod Anisocytosis Slight Sickle Cells Mod Target Cells Mod Tear Drop Cells Occ Ovalocytes Occ Schistocytes Few Absolute Reticulocyte Count 0.301 x10^6/uL (0.020-0.120) Percent Reticulocyte Count 12.9 % (0.5-2.3) H Immature Reticulocyte Fraction 0.68 (0.20-0.60) H Sodium Level 136 mmol/L (136-145) Potassium Level 4.0 mmol/L (3.5-5.1) Chloride Level 101 mmol/L (98-107) Carbon Dioxide Level 24 mmol/L (21-32) Anion Gap 11 (6-14) Blood Urea Nitrogen 22 mg/dL (7-20) H Creatinine 1.3 mg/dL (0.6-1.0) H Estimated GFR (Cockcroft-Gault) 52.7 BUN/Creatinine Ratio 17 (6-20) Glucose Level 100 mg/dL (70-99) H Calcium Level 8.5 mg/dL (8.5-10.1) Ferritin 5332 ng/mL (8-252) H Total Bilirubin 3.0 mg/dL (0.2-1.0) H Aspartate Amino Transferase (AST) 58 U/L (15-37) H Alanine Aminotransferase (ALT) 36 U/L (14-59) Alkaline Phosphatase 72 U/L (46-116) C-Reactive Protein, Quantitative 81.8 mg/L (0-3.3) H Total Protein 6.8 g/dL (6.4-8.2) Albumin 3.9 g/dL (3.4-5.0) Albumin/Globulin Ratio 1.3 (1.0-1.7) Laboratory Tests 01/13/20 17:30 Laboratory Tests 01/13/20 17:30 Vital Signs: Vital Signs Date Time Temp Pulse Resp B/P (MAP) Pulse Ox O2 Delivery O2 Flow Rate FiO2 01/13/20 17:58 20 95 Room Air 01/13/20 16:30 100.4 125 131/68 (89) 100.4 EKG: EKG: [] Radiology/Procedures: Radiology/Procedures: PROCEDURE: CHEST AP ONLY EXAMINATION: CHEST AP ONLY CLINICAL HISTORY: PUI, hx of sickle cell; chest pain EXAM DATE/TIME: 01/13/2020 5:09 PM COMPARISON: 10/03/2017 FINDINGS: Lines, tubes, and devices: None. Cardiomediastinal silhouette: Cardiomegaly, similar to prior study. Aortic atherosclerotic calcification. Lungs and pleura: No evidence of focal airspace consolidation or pleural effusion. Minimal bibasilar subsegmental atelectasis. Pulmonary vasculature unremarkable. Bones and soft tissues: No acute osseous abnormality. IMPRESSION: No evidence of acute cardiopulmonary abnormality or significant interval change.[] Course & Med Decision Making: Course & Med Decision Making Pertinent Labs and Imaging studies reviewed. (See chart for details) 193-spoke with Dr. Santa who is the admitting physician, and care was assumed following discussion of patient. Will admit patient for PUI, sickle cell crisis Patient's vital signs stable. Patient appears uncomfortable and nontoxic, respirations even and unlabored. Patient will be admitted to the [facility] telemetry floor. Patient's case and plan of care also discussed with Dr. Randolph Chase Disclaimer: Salvatore Disclaimer: This electronic medical record was generated, in whole or in part, using a voice recognition dictation system. Departure Departure Impression: Primary Impression: Person under investigation for COVID-19 Additional Impression: Sickle cell crisis Disposition: ADMITTED INPATIENT Admitting Physician: Kia Santa Condition: STABLE Referrals: KIA SANTA MD (PCP) Justicifation of Admission Dx: Justifications for Admission: Justification of Admission Dx: Yes Comments: PUI, Sickle cell crisis CANDIE JOHNSON APRN Jan 13, 2020 19:16
[2020-01-13] MEDS ORDERED: cefTRIAXone IV Push 1 GM VIAL. IVP ONE (19:30)
[2020-01-13 21:09] LABS: BILIRUBIN,URINE NEGATIVE (NEG); CLARITY,URINE CLEAR; COLOR,URINE AMBER; NITRITE,URINE NEGATIVE (NEG); PH,URINE 5.5 (<5.0-8.0); PROTEIN,URINE NEGATIVE (NEG-TRACE)
[2020-01-13 21:14] LABS: AMORPHOUS SEDIMENT,UR PRESENT /HPF; BACTERIA,URINE FEW /HPF (0-FEW); HYALINE CASTS, URINE FEW /HPF; SQUAMOUS EPITHELIAL CELL,UR MOD /LPF
[2020-01-13] MEDS: IV NORMAL SALINE 1000ML BAG 1,000 ML IV SCH (21:20)
[2020-01-13] MEDS: MORPHINE SULFATE 4 MG/ML VIAL. IV PRN (21:25)
[2020-01-13 23:34] VITALS: BP 122/71
[2020-01-13] MEDS ORDERED: VOXE500T PO (23:55)
[2020-01-14] MEDS: MORPHINE SULFATE 4 MG/ML VIAL. IV PRN ×4 (00:38→20:36)
[2020-01-14] MEDS: IV NORMAL SALINE 1000ML BAG 1,000 ML IV SCH ×4 (00:39→20:04)
[2020-01-14 03:29] VITALS: BP 113/67
[2020-01-14 07:12] VITALS: BP 106/59
[2020-01-14] MEDS ORDERED: NON FORMULARY ITEM (Budesonide/Formoterol Fumarate (Symbicort 160-4.5 Mcg Inhaler) 2 PUFF) IH PRN (09:30)
[2020-01-14] MEDS ORDERED: ACETAMINOPHEN 325 MG TABLET. PO PRN (09:30)
--- NOTE | 2020-01-14 09:47 | PDOC ---
Provider Note Date of Service: DATE: 01/14/20 TIME: 09:47 Provider Note H&P dictated #[id number] Justifications for Admission Other Justification KIA SANTA MD Jan 14, 2020 09:47
[2020-01-14] MEDS ORDERED: BUDESONIDE 0.5 MG/2 ML NEBU. NEB SCH (10:00)
[2020-01-14] MEDS: CHOLECALCIFEROL (VITAMIN D3) 1,000 UNIT TABLET PO SCH (10:08)
[2020-01-14] MEDS: FOLIC ACID 1 MG TABLET. PO SCH (10:08)
[2020-01-14] MEDS: METOPROLOL TART IMMED RELEASE 25 MG TABLET. PO SCH ×2 (10:08→20:13)
[2020-01-14] MEDS: ASCORBIC ACID 500 MG TABLET PO SCH (10:08)
[2020-01-14 10:16] VITALS: BP 130/70
--- NOTE | 2020-01-14 10:33 | HP ---
ADMIT DATE: HISTORY OF PRESENT ILLNESS: This is a 49 years old female who is known to have sickle cell disease, started having body aches, pain and fevers on Monday morning that was 2 days ago. Symptoms continued to get worse. She takes methadone and oxycodone at home, but even with that, her pain was 10/10. She has severe back pain, pain in the back of her chest, joint pains and she had difficulty breathing because of the pain. She had fever up to 101 degrees Fahrenheit. She denies any cold, cough, congestion, sore throat, abdominal pain, nausea, vomiting, diarrhea, skin rash, cough with any mucus production, dysuria, or any other problems. She has chronic left ankle wound that is healing. Because of the persistent symptoms, she came to the Emergency Room. She does not have any known exposure to COVID-19, but because of her fever and other symptoms and because of the possibility of the COVID-19 infection as well as acute sickle cell crisis, the patient was admitted to the hospital. SYSTEMS REVIEW: As noted in the history of present illness. Other systems reviewed and are negative. PAST MEDICAL HISTORY: Her last sickle cell crisis was more than 2 years ago. Her last admission was in 11/2017 for infected bilateral ankle ulcers with cellulitis. She is known to have sickle cell disease with history of chronic left ankle wound. Sometimes she also has a right ankle wound. She has a history of gastroesophageal reflux disease, pulmonary hypertension, anemia, gout. PAST SURGICAL HISTORY: She had a D and C in the past. FAMILY HISTORY: Positive for heart disease, hypertension and sickle cell trait. SOCIAL HISTORY: No history of smoking, alcoholism or drug abuse. ALLERGIES: REVIEWED. SHE IS ALLERGIC TO PENICILLIN, BACITRACIN, CLINDAMYCIN, NEOMYCIN SULFATE, POLYMYXIN B, SILVER SULFADIAZINE, SULFAMETHOXAZOLE AND TRIMETHOPRIM, AND CARDIZEM. FENTANYL CAUSES SEVERE HEADACHES, NAUSEA AND VOMITING. MEDICATIONS: Reviewed and reconciled. PHYSICAL EXAMINATION: GENERAL: The patient is middle-aged female. The patient is alert, oriented, in mild distress.. VITAL SIGNS: Temperature max 100.2 on admission, pulse 92 per minute, respirations 18 per minute, blood pressure 122/71. EYES: Pupils equal, reactive to light. Conjunctivae are pink. Sclerae muddy. HEENT: Unremarkable. SKIN: Warm and dry. There is no cyanosis. There is a left ankle wound that is healing. Pictures reviewed. Dressing in place. NECK: Supple. JVP normal. No thyromegaly. Trachea midline. LUNGS: Clear. CARDIOVASCULAR: S1, S2 regular. ABDOMEN: Soft, nontender, no guarding, no rigidity. Bowel sounds present. EXTREMITIES: No edema. Left ankle wound as noted earlier. CENTRAL NERVOUS SYSTEM: Alert and oriented, generalized weakness. Moves all extremities. LABORATORY DATA: WBC count 17.7, hemoglobin 7.8, platelet count is 312,000. Absolute retic count is 0.301, retic percent is 12.9, immature retic fraction is 0.68. All of them are high. Sodium 136, potassium 4, BUN 22, creatinine 1.3, ferritin 5332. C-reactive protein 81.8, AST 58, bilirubin 3, ALT 36, albumin 3.9. Chest x-ray is negative for acute infiltrates. Urinalysis is negative. IMPRESSION: 1. Acute sickle cell crisis. 2. Anemia. 3. Dehydration. 4. Hypertension. 5. Chronic pain syndrome. 6. Left ankle ulcer, healing. 7. Suspected COVID-19 infection. PLAN: COVID-19 test is pending. Continue IV normal saline. The patient feels that since she was started about a month ago on Oxbryta, her symptoms are getting worse and she feels that her sickle cell crisis may be due to that. I will stop it for now. Increase fluids. Order blood cultures. Continue IV Rocephin. Continue IV morphine for pain relief and continue oxycodone p.r.n. and methadone as at home. For details, please refer to the orders. Clinically, no particular source of infection noted at this time. KIA SANTA MD DR: BENIGNO/rylan JOB#: [id number] / [id number]
[2020-01-14] MEDS ORDERED: ALBUTEROL SULFATE 2.5 MG/3 ML NEBU. NEB SCH (12:00)
[2020-01-14] MEDS: METHADONE 5 MG TABLET. PO SCH ×3 (12:43→20:05)
--- NOTE | 2020-01-14 13:02 | NUR ---
SW following. Reviewed chart and spoke with RN. Pt from home. Pt currently on a regular diet, 2l 02, COVID pending, and IV Rocephin. SW attempted to call into room but there was no answer. SW following.
[2020-01-14] MEDS: [UNRECOGNIZED DRUG - OTHER] PO SCH ×2 (14:00→21:00)
[2020-01-14 15:20] VITALS: BP 115/63
[2020-01-14] MEDS: oxyCODONE IR 5 MG TABLET PO PRN (16:20)
--- NOTE | 2020-01-14 16:34 | NUR ---
Wound Care: Patient covid pending at this time. Patient is [facility] venous ulcer. Picture assessment only performed at this time. Patient is very good about managing her own wound care. Recommendations to continue with her current treatment from the wound center. Gentamicin ointment, contact layer, ABD pad, and kerlix. Patient's dressing is clean and dry and intact per RN. Wound care will follow up pending covid results. Spoke with RN regarding POC.
[2020-01-14 19:30] VITALS: BP 125/67
[2020-01-14] MEDS ORDERED: cefTRIAXone IV Push 1 GM VIAL. IVP SCH (20:00)
[2020-01-14] MEDS ORDERED: BUDESONIDE 0.5 MG/2 ML NEBU. NEB PRN (20:00)
[2020-01-14] MEDS ORDERED: ALBUTEROL SULFATE 2.5 MG/3 ML NEBU. NEB PRN (20:00)
[2020-01-14] MEDS ORDERED: MONTELUKAST SODIUM 10 MG TABLET. PO SCH (21:00)
[2020-01-14] MEDS ORDERED: CETIRIZINE HCL 10 MG TABLET. PO SCH (21:00)
[2020-01-14 23:38] VITALS: BP 114/71
[2020-01-15] MEDS: oxyCODONE IR 5 MG TABLET PO PRN ×3 (01:39→13:33)
[2020-01-15 03:00] VITALS: BP 114/60
[2020-01-15 03:58] LABS: BASO # 0.1 x10^3/uL (0.0-0.2); BASO % 1 % (0-3); EOS % 8 % (0-3); LYMPH # 2.4 x10^3/uL (1.0-4.8); LYMPH % 18 % (24-48); MEAN CORPUSCULAR HEMOGLOBIN 33 pg (25-35); MEAN CORPUSCULAR HGB CONC 35 g/dL (31-37); MEAN CORPUSCULAR VOLUME 96 fL (79-100); MONO # 2.4 x10^3/uL (0.0-1.1); MONO % 18 % (0-9); NEUT # 7.4 x10^3/uL (1.8-7.7); NEUT % 56 % (31-73); PLATELET COUNT 303 x10^3/uL (140-400); RED BLOOD COUNT 1.89 x10^6/uL (3.50-5.40); RED CELL DISTRIBUTION WIDTH 16.2 % (11.5-14.5); WHITE BLOOD COUNT 13.4 x10^3/uL (4.0-11.0)
[2020-01-15 04:04] LABS: HEMATOCRIT 18.1 % (36.0-47.0); HEMOGLOBIN 6.3 g/dL (12.0-15.5)
[2020-01-15 04:14] LABS: ALBUMIN 3.3 g/dL (3.4-5.0); ALBUMIN/GLOBULIN RATIO 0.8 (1.0-1.7); CALCIUM 8.1 mg/dL (8.5-10.1); CREATININE 0.6 mg/dL (0.6-1.0); GFR 128.6; TOTAL BILIRUBIN 1.6 mg/dL (0.2-1.0); TOTAL PROTEIN 7.5 g/dL (6.4-8.2)
--- NOTE | 2020-01-15 04:20 | NUR ---
Pt hemoglobin 6.3, hematocrit 18.1, Dr Hoffman notified no new orders received at this time. Dr Hoffman will see pt this morning to discuss plan of care. Will cont to monitor pt status and safety.pmrn
[2020-01-15] MEDS: MORPHINE SULFATE 4 MG/ML VIAL. IV PRN (05:55)
[2020-01-15 07:48] VITALS: BP 107/61
[2020-01-15] MEDS ORDERED: DEFERASIROX PO SCH (09:00)
[2020-01-15] MEDS ORDERED: VOXELOTOR 500 MG PO SCH (09:00)
[2020-01-15] MEDS: [UNRECOGNIZED DRUG - OTHER] PO SCH ×2 (09:00→13:34)
[2020-01-15] MEDS: METOPROLOL TART IMMED RELEASE 25 MG TABLET. PO SCH (09:05)
[2020-01-15] MEDS: CHOLECALCIFEROL (VITAMIN D3) 1,000 UNIT TABLET PO SCH (09:05)
[2020-01-15] MEDS: ASCORBIC ACID 500 MG TABLET PO SCH (09:05)
[2020-01-15] MEDS: FOLIC ACID 1 MG TABLET. PO SCH (09:05)
[2020-01-15] MEDS: METHADONE 5 MG TABLET. PO SCH ×2 (09:08→13:00)
[2020-01-15] MEDS ORDERED: diphenhydrAMINE HCL 25 MG CAPSULE PO PRN (09:30)
[2020-01-15] MEDS ORDERED: ACETAMINOPHEN 325 MG TABLET. PO PRN (09:30)
[2020-01-15] MEDS ORDERED: diphenhydrAMINE ORAL ELIXIR 12.5 MG/5 ML ML PO PRN (09:30)
--- NOTE | 2020-01-15 09:35 | PDOC ---
IM PROGRESS NOTES- Subjective Subjective Has body ache. No complaints of nausea or vomiting Objective Vitals/I&O Vital Signs Date Time Temp Pulse Resp B/P (MAP) Pulse Ox O2 Delivery O2 Flow Rate FiO2 01/15/20 09:10 Nasal Cannula 2.0 01/15/20 09:08 98 01/15/20 09:05 61 01/15/20 07:48 98.3 16 107/61 (76) 98.3 I & O 01/14/20 01/14/20 01/15/20 15:00 23:00 07:00 Intake Total 340 ml 1280 ml 240 ml Balance 340 ml 1280 ml 240 ml Physical Exam Physical Exam General appearance - alert,well appearing, and in no distress and oriented to person, place, and time Mental Status - alert, oriented to person, place, and time, affect appropriate to mood Head - normal Chest -decreased breath sounds at bases Heart - S1 and S2 normal Abdomen - soft, nontender Neurological - alert and oriented Extremities - no pedal edema, left ankle wound Skin - warm and dry Labs Laboratory Tests Test 01/15/20 03:35 White Blood Count 13.4 x10^3/uL (4.0-11.0) H Red Blood Count 1.89 x10^6/uL (3.50-5.40) L Hemoglobin 6.3 g/dL (12.0-15.5) *L Hematocrit 18.1 % (36.0-47.0) *L Mean Corpuscular Volume 96 fL (79-100) Mean Corpuscular Hemoglobin 33 pg (25-35) Mean Corpuscular Hemoglobin Concent 35 g/dL (31-37) Red Cell Distribution Width 16.2 % (11.5-14.5) H Platelet Count 303 x10^3/uL (140-400) Neutrophils (%) (Auto) 56 % (31-73) Lymphocytes (%) (Auto) 18 % (24-48) L Monocytes (%) (Auto) 18 % (0-9) H Eosinophils (%) (Auto) 8 % (0-3) H Basophils (%) (Auto) 1 % (0-3) Neutrophils # (Auto) 7.4 x10^3/uL (1.8-7.7) Lymphocytes # (Auto) 2.4 x10^3/uL (1.0-4.8) Monocytes # (Auto) 2.4 x10^3/uL (0.0-1.1) H Eosinophils # (Auto) 1.0 x10^3/uL (0.0-0.7) H Basophils # (Auto) 0.1 x10^3/uL (0.0-0.2) Sodium Level 138 mmol/L (136-145) Potassium Level 4.0 mmol/L (3.5-5.1) Chloride Level 107 mmol/L (98-107) Carbon Dioxide Level 22 mmol/L (21-32) Anion Gap 9 (6-14) Blood Urea Nitrogen 9 mg/dL (7-20) Creatinine 0.6 mg/dL (0.6-1.0) Estimated GFR (Cockcroft-Gault) 128.6 BUN/Creatinine Ratio 15 (6-20) Glucose Level 95 mg/dL (70-99) Calcium Level 8.1 mg/dL (8.5-10.1) L Total Bilirubin 1.6 mg/dL (0.2-1.0) H Aspartate Amino Transferase (AST) 50 U/L (15-37) H Alanine Aminotransferase (ALT) 34 U/L (14-59) Alkaline Phosphatase 54 U/L (46-116) Total Protein 7.5 g/dL (6.4-8.2) Albumin 3.3 g/dL (3.4-5.0) L Albumin/Globulin Ratio 0.8 (1.0-1.7) L Laboratory Tests 01/15/20 03:35 Laboratory Tests 01/15/20 03:35 Meds Current Medications Medications (Trade) Dose Ordered Sig/Nilda Route PRN Reason Start Time Stop Time Status Last Admin Dose Admin Ascorbic Acid (Vitamin C) 500 mg DAILY PO 01/14/20 10:00 01/15/20 09:05 Cetirizine HCl (ZyrTEC) 10 mg HS PO 01/14/20 21:00 01/14/20 20:05 Folic Acid (Folic Acid) 1 mg DAILY PO 01/14/20 10:00 01/15/20 09:05 Methadone HCl (Dolophine) 2.5 mg QID PO 01/14/20 13:00 01/15/20 09:08 Metoprolol Tartrate (Lopressor) 25 mg BID PO 01/14/20 10:00 01/15/20 09:05 Montelukast Sodium (Singulair) 10 mg HS PO 01/14/20 21:00 01/14/20 20:04 Vitamin D (Vitamin D3) 1,000 unit DAILY PO 01/14/20 10:00 01/15/20 09:05 Oxycodone HCl (Roxicodone) 15 mg PRN Q4HRS PRN PO SEVERE PAIN 01/14/20 10:00 01/15/20 09:10 Ceftriaxone Sodium (Rocephin) 1 gm Q24H IVP 01/14/20 20:00 01/14/20 20:06 Assessment Assessment 1. Acute sickle cell crisis. 2. Anemia. 3. Dehydration. 4. Hypertension. 5. Chronic pain syndrome. 6. Left ankle ulcer, healing. 7. Suspected COVID-19 infection. PLAN: COVID-19 test is negative. Continue IV normal saline. The patient feels that since she was started about a month ago on Oxbryta, her symptoms are getting worse and she feels that her sickle cell crisis may be due to that. I will stop it for now. Increase fluids. Order blood cultures. Continue IV Rocephin. Continue IV morphine for pain relief and continue oxycodone p.r.n. and methadone as at home. For details, please refer to the orders. Clinically, no particular source of infection noted at this time. Acute renal failure with vasomotor nephropathy Acute renal failure with vasomotor nephropathy-creatinine has decreased to 2.6. Patient is receiving IV normal saline. Sickle cell crisis-TRINA globin has decreased to 6.3. Transfuse 1 unit of packed red cells. Fever-improving. COVID-19 test is negative. Urine culture shows less than 10, 000 urogenital naina. Continue IV Rocephin Left ankle wound stable Clinically improving. If stable consider discharge tomorrow. Plan Plan For more details regarding further plans, please refer to the orders. Justifications for Admission Other Justification KIA SANTA MD Jan 15, 2020 09:35
--- NOTE | 2020-01-15 10:00 | NUR ---
Wound/Ostomy Care Wound Type/Assessment: Patient seen per wound care consult. See wound assessment. Patient is well known to us from the wound clinic. Patient has stasis ulcer to left posterior ankle. Wound cleansed, assessed, and measured. Treatment Recommendations/Plan: Recommendations to continue with current treatment plan from the wound clinic. Gentamicin ointment, contact layer, ABD pad, and kerlix. Changing daily. Education provided: N/A Offloading surface/device: N/A Recommended Referrals/Tests: Patient has follow up appointment scheduled in the wound clinic. Discharge Recommendations for dressings: Continue current treatment plan. No other wounds noted. Dressing change instructions left in room, Gentamicin ordered by RN, spoke with RN regarding POC. Bed lowered and call light in reach.
[2020-01-15 10:33] VITALS: BP 114/59
[2020-01-15] MEDS ORDERED: GENTAMICIN 0.1% TOPICAL OINTMENT 15GM TUBE. TP SCH (11:00)
[2020-01-15] MEDS ORDERED: BUDESONIDE 0.5 MG/2 ML NEBU. NEB SCH (12:00)
[2020-01-15] MEDS ORDERED: ALBUTEROL SULFATE 2.5 MG/3 ML NEBU. NEB SCH (12:00)
[2020-01-15] MEDS: IV NORMAL SALINE 1000ML BAG 1,000 ML IV SCH (13:34)
[2020-01-15 15:00] VITALS: BP 108/64
--- NOTE | 2020-01-15 17:28 | NUR ---
SW following. Reviewed chart and spoke with RN. Pt remains on 2l 02 and IV Rocephin. 6 min walk will likely be needed to determine 02 needs at discharge. Pt COVID negative. Pt transferred to [facility] to follow.
--- NOTE | 2020-01-15 17:51 | NUR ---
After verifying blood with Cesar, RN pt stated she had concerns since the blood product was O positive and her blood type is B positive. Attempted to explain the use of O pos would be compatible with her blood type. Pt requested I speak to Dr. Hoffman for to verify he approved of this transfusion. Jennifer from blood bank came and provided education to the pt regarding the antibodies and antigens and reason they supplied O positive blood stating hers was rare. Pt still refused requesting to wait for the Dr. Spoke to Dr. Hoffman and he stated if the blood bank approved of the blood that he approved. Updated pt. She requested more time to talk it over with her family. Pt requested I return her initial consent for the blood transfusion she signed this morning. She stated if the hospital could provide her with a document stating that the hospital would be responsible if she were to have a reaction. Paged the nursing supervisor slitting and shipping. Spoke to Mercedes. Mercedes stated we do not have a form that states that. We would have to wait until tomorrow morning to verify. Updated pt. Pt requested to be discharged. Asked that I call Dr. Hoffman for Discharge orders. Paged Dr. Hoffman. He stated the pt could discharge and follow up with him in the office on Monday. Updated pt and nursing supervisor slitting and shipping.
--- NOTE | 2020-01-15 18:03 | NUR ---
Removed IV. Provided dc instructions. Medications remained the same. Only instruction is follow up request. Pt ambulated to entrance with NUTRITION HELPER.
[2020-01-15] MEDS ORDERED: LACTOBACILLUS RHAMNOSUS GG 1 CAPSULE. PO SCH (21:00)
--- NOTE | 2020-01-16 10:54 | PDOC3 ---
IM DISCHARGE SUMMARY Date of Admission Date of Admission Date of Admission: Jan 13, 2020 at 19:33 Date of Discharge Date of Discharge January 15, 2020 Primary Diagnosis Primary Diagnosis 1. Acute sickle cell crisis. 2. Anemia. 3. Dehydration. 4. Hypertension. 5. Chronic pain syndrome. 6. Left ankle ulcer, healing. 7. Suspected COVID-19 infection.Ruled out. 8. acute renal failure with vasomotor nephropathy. Consults Consults Brief hospital course Brief hospital course This is a 49 years old female who is known to have sickle cell disease, started having body aches, pain and fevers on Monday morning that was 2 days ago. Symptoms continued to get worse. She takes methadone and oxycodone at home, but even with that, her pain was 10/10. She has severe back pain, pain in the back of her chest, joint pains and she had difficulty breathing because of the pain. She had fever up to 101 degrees Fahrenheit. She denies any cold, cough, congestion, sore throat, abdominal pain, nausea, vomiting, diarrhea, skin rash, cough with any mucus production, dysuria, or any other problems. She has chronic left ankle wound that is healing. Because of the persistent symptoms, she came to the Emergency Room. She does not have any known exposure to COVID-19, but because of her fever and other symptoms and because of the possibility of the COVID-19 infection as well as acute sickle cell crisis, the patient was admitted to the hospital. For more details regarding the past history, family history, social history, surgical history and other details, please refer to History and Physical. COVID-19 test is negative. Continue IV normal saline. The patient feels that since she was started about a month ago on Oxbryta, her symptoms are getting worse and she feels that her sickle cell crisis may be due to that. I will stop it for now. Increase fluids. Order blood cultures. Continue IV Rocephin. Continue IV morphine for pain relief and continue oxycodone p.r.n. and methadone as at home. For details, please refer to the orders. Clinically, no particular source of infection noted at this time. Acute renal failure with vasomotor nephropathy Acute renal failure with vasomotor nephropathy-creatinine has decreased to 0. 6. patient was treated with Sickle cell crisis-TRINA globin has decreased to 6.3. Transfuse 1 unit of packed red cells. Fever-improving. COVID-19 test is negative. Urine culture shows less than 10,000 urogenital naina. Continue IV Rocephin Left ankle wound stable patient was uncomfortable about getting blood transfusion. She declined to get bl She wanted to go home. Clinically she was improving so IV fluids were discontinued.she was afebrile and the leukocytosis had resolved and there was no clear source of infectiion, so IV Rocephin was discontinued. She was sent home on her home medications. She's advised to come to the office in 2 days so we can recheck her labs. 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 Medications Current Medications Medications (Trade) Dose Ordered Sig/Nilda Route PRN Reason Start Time Stop Time Status Last Admin Dose Admin Gentamicin Sulfate (Garamycin) 1 silas DAILY TP 01/15/20 11:00 01/15/20 18:04 DC 01/15/20 11:00 Albuterol Sulfate (Ventolin Neb Soln) 2.[address] [facility] 01/15/20 12:00 01/15/20 18:04 DC 01/15/20 11:45 Budesonide (Pulmicort) 0.[address] [facility] 01/15/20 12:00 01/15/20 18:04 DC 01/15/20 11:45 Medications reviewed and reconciled for discharge. Allergy Allergies Coded Allergies Type Severity Reaction Last Updated Verified Penicillins Allergy Intermediate Rash 07/19/19 Yes bacitracin Allergy Intermediate Rash 07/19/19 Yes bacitracin zinc Allergy Intermediate Rash 07/19/19 Yes clindamycin Allergy Intermediate Rash 07/19/19 Yes diltiazem Allergy Intermediate hives 07/19/19 Yes neomycin sulfate Allergy Intermediate Rash 07/19/19 Yes polymyxin B Allergy Intermediate Rash 07/19/19 Yes silver sulfadiazine Allergy Intermediate 01/13/20 Yes sulfamethoxazole Allergy Intermediate 01/13/20 Yes trimethoprim Allergy Intermediate 01/13/20 Yes adhesive tape Allergy Mild 01/13/20 Yes fentanyl Adverse Reaction Intermediate HEADACHE, N/V 01/13/20 Yes Follow up in 2 days. DISPOSITION: Home Comments Discharge Management - 35 minutes. For other details please refer to discharge instructions Justicifation of Admission Dx: Justifications for Admission: Justification of Admission Dx: Yes KIA SANTA MD Jan 16, 2020 10:54
== END 2020-01-15 18:03 | disposition home or self-care (01) | DRG 811 ==
LOC: ER 15:58 → 6 SOUTH 19:33 → 4 NORTH 01-15 11:29
PROVIDERS: ADMIT Internal Medicine; ATTEND Internal Medicine
PROC: 30233N1 Transfusion of Nonautologous Red Blood Cells into Peripheral Vein, Percutaneous Approach (ICD-10-PCS; principal; 2020-01-13)
DX: D57.00 Hb-SS disease with crisis, unspecified (principal); N17.0 Acute kidney failure with tubular necrosis; L97.329 Non-pressure chronic ulcer of left ankle with unspecified severity; D72.829 Elevated white blood cell count, unspecified; E86.0 Dehydration; G89.4 Chronic pain syndrome; I10 Essential (primary) hypertension; I27.20 Pulmonary hypertension, unspecified; R50.81 Fever presenting with conditions classified elsewhere; Z20.828 Contact with and (suspected) exposure to other viral communicable diseases; Z82.49 Family history of ischemic heart disease and other diseases of the circulatory system; Z83.2 Family history of diseases of the blood and blood-forming organs and certain disorders involving the immune mechanism; K21.9 Gastro-esophageal reflux disease without esophagitis; M10.9 Gout, unspecified; Z88.0 Allergy status to penicillin; Z88.2 Allergy status to sulfonamides; Z88.8 Allergy status to other drugs, medicaments and biological substances; Z79.899 Other long term (current) drug therapy; Z90.49 Acquired absence of other specified parts of digestive tract
CPT/HCPCS: 36415; 71045; 80053; 81001; 81025; 82728; 85007; 85025; 85045; 86140; 86850; 86900; 86901; 86920; 87040; 87086; 94640; 94760; 96361; 96374; 96375; 96376; 99285; J0696; J2270; J2405; J7030; G0378; J7613; J7626; U0003-CS

== ENCOUNTER → 2020-05-13 | Outpatient (CLI) | payer OTHER ==
[~2020-05-13] MED LIST changes: -CIPR500T PO; +CIPR500T2 PO; -FOLI0.4T2 PO; +FOLI0.4T5 PO; +VOXE500T PO
--- NOTE | 2020-05-13 16:08 | CARD ---
MR#: [id number] Date of Study: 05/13/2020 Ordering Physician: LUIGI BARDALES, Referring Physician: LUIGI BARDALES, Tech: Sara Aguirre MARCOS APPROVED REPORT EXAM: Two-dimensional and M-mode echocardiogram with Doppler and color Doppler. Other Information Quality : Good INDICATION Hypertension/HCVD 2D DIMENSIONS RVDd3.1 (2.9-3.5cm)Left Atrium(2D)3.7 (1.6-4.0cm) IVSd1.0 (0.7-1.1cm)Aortic Root(2D)2.8 (2.0-3.7cm) LVDd4.6 (3.9-5.9cm)LVOT Diameter2.0 (1.8-2.4cm) PWd0.8 (0.7-1.1cm)LVDs2.4 (2.5-4.0cm) FS (%) 30.0 %SV77.9 ml LVEF(%)60.0 (>50%) Aortic Valve AoV Peak Marvin.261.6cm/sAoV VTI40.5cm AO Peak GR.27.4mmHgLVOT Peak Marvin.195.0cm/s AO Mean GR.15mmHgAVA (VMAX)2.35cm2 VANITA (VTI)2.90cm2 Mitral Valve MV E Nkkshtxl533.4cm/sMV DECEL LFQM051oa MV A Xhzsffiv672.2cm/sE/A Ratio1.4 Tricuspid Valve TR P. Kszdetdq868ny/sRAP VIEEKFUE4ppVt TR Peak Gr.12scYqCOTW28ihNz Pulmonary Vein S1 Gqlqvdqi31.4cm/sD2 Lulpogom319.9cm/s LEFT VENTRICLE The left ventricle is normal size. There is normal left ventricular wall thickness. The left ventricu lar systolic function is normal and the ejection fraction is within normal range. The Ejection Fracti on is 55-60%. There is normal LV segmental wall motion. The left ventricular diastolic function and f illing is normal for age. RIGHT VENTRICLE The right ventricle is normal size. The right ventricular systolic function is normal. ATRIA The left atrium is moderately dilated. The right atrium is mildly dilated. The interatrial septum is intact with no evidence for an atrial septal defect or patent foramen ovale as noted on 2-D or Dopple r imaging. AORTIC VALVE The aortic valve is calcified and grossly appears trileaflet. Cannot rule out partial fusion of the r ight and left cusps. Doppler and Color Flow revealed no significant aortic regurgitation. There is no significant aortic valvular stenosis. MITRAL VALVE The mitral valve is calcified but opens well. There is no evidence of mitral valve prolapse. There is no mitral valve stenosis. Doppler and Color-flow revealed mild mitral regurgitation. TRICUSPID VALVE The tricuspid valve is normal in structure and function. Doppler and Color Flow revealed mild tricusp id regurgitation. There is moderate-severe pulmonary hypertension. The PA pressure was estimated at 6 4 mmHg. There is no tricuspid valve stenosis. PULMONIC VALVE Doppler and Color Flow revealed no pulmonic valvular regurgitation. There is no pulmonic valvular joe nosis. GREAT VESSELS The aortic root is normal in size. The ascending aorta is not well seen. The IVC is dilated and colla pses >50% with inspiration. PERICARDIAL EFFUSION There is no evidence of significant pericardial effusion. Critical Notification Critical Value: No <Conclusion> The left ventricular systolic function is normal and the ejection fraction is within normal range. Th e Ejection Fraction is 55-60%. There is normal LV segmental wall motion. The aortic valve is calcified and grossly appears trileaflet. Cannot rule out partial fusion of the r ight and left cusps. Doppler and Color-flow revealed mild mitral regurgitation. Doppler and Color Flow revealed mild tricuspid regurgitation. There is moderate-severe pulmonary hype rtension. The PA pressure was estimated at 64 mmHg. The IVC is dilated and collapses >50% with inspiration. Signed by : Ladarius Robles, Electronically Approved : 05/13/2020 16:07:57
== END ==
LOC: ECHO 13:55
PROVIDERS: ATTEND Internal Medicine Cardiovascular Disease
DX: I08.3 Combined rheumatic disorders of mitral, aortic and tricuspid valves (principal); I10 Essential (primary) hypertension
CPT/HCPCS: 93306

== ENCOUNTER → 2020-09-16 | Outpatient (CLI) | payer OTHER ==
--- NOTE | 2020-09-16 16:08 | RAD ---
EXAM: Right lower extremity arterial Doppler sonogram with ankle-brachial indices (DARRION). HISTORY: Nonhealing wounds. Pain. Peripheral vascular disease. TECHNIQUE: Doppler sonographic evaluation of the right lower extremity was performed and pressure jeremy dings were assessed. FINDINGS: Right brachial pressure: 115 mmHg Right ankle pressure: 145 mmHg Right DARRION: 1.3 There are abnormal monophasic waveforms throughout the right lower extremity arteries, with exception of a triphasic waveform within the deep femoral artery. There are elevated peak systolic velocities within the right common femoral artery and proximal, mid and distal superficial femoral artery, measu ring 177 cm/s, 186 cm/s, 183 cm/s and 160 cm/s. IMPRESSION: 1. Normal right ankle-brachial index. 2. Abnormal monophasic waveforms throughout the right lower extreme the arteries, with exception of t he deep femoral artery. This can be seen with hemodynamically significant proximal stenosis. 3. Elevated peak systolic velocities within the right common femoral artery and superficial femoral a rtery, suggesting mild significant stenosis. 4. No evidence of arterial occlusion. Electronically signed by: Carolyn Calderón MD (09/16/2020 4:06 PM) [id number]
== END ==
LOC: US 15:25
PROVIDERS: ATTEND Nurse Practitioner Family
DX: S91.001A Unspecified open wound, right ankle, initial encounter (principal); X58.XXXA Exposure to other specified factors, initial encounter; Y93.89 Activity, other specified; Y92.89 Other specified places as the place of occurrence of the external cause; Y99.8 Other external cause status; M79.661 Pain in right lower leg
CPT/HCPCS: 93922; 93926

== ENCOUNTER 2020-11-03 09:04 | Outpatient (CLI) | payer OTHER ==
[~2020-11-03] VITALS: Ht 175.3 cm; Wt 68.2 kg
[2020-11-03] VITALS (12 sets, daily range): BP systolic 119–141; BP diastolic 65–75
[~2020-11-03 09:04] MED LIST changes: +IODIXANOL 320 MG/ML 100 ML VIAL. ONE; +LANS15CA73 PO; -LANS15CA78 PO
[2020-11-03 09:48] LABS: RED BLOOD COUNT 2.04 x10^6/uL (3.50-5.40); RED CELL DISTRIBUTION WIDTH 20.3 % (11.5-14.5); WHITE BLOOD COUNT 12.2 x10^3/uL (4.0-11.0)
[2020-11-03] MEDS ORDERED: LIDOCAINE 1% PF 2 ML VIAL. ONE (09:51)
[2020-11-03 09:52] LABS: HEMATOCRIT 19.7 % (36.0-47.0)
[2020-11-03 10:00] LABS: CALCIUM 8.4 mg/dL (8.5-10.1); CREATININE 0.8 mg/dL (0.6-1.0); GFR 91.9; POTASSIUM 4.7 mmol/L (3.5-5.1)
[2020-11-03] MEDS ORDERED: MORPHINE SULFATE 10 MG/ML VIAL. ONE (10:10)
[2020-11-03] MEDS ORDERED: MIDAZOLAM HCL/PF 2 MG/2 ML VIAL. ONE ×2 (10:11→10:41)
[2020-11-03] MEDS ORDERED: HEPARIN for IV BOLUS 10,000 UNIT/10 ML VIAL. ONE (10:11)
--- NOTE | 2020-11-03 10:17 | PDOC ---
MODERATE SEDATION ASSESSMENT RISKS/ALTERNATIVES Risks/Alternatives Risks and alternatives of this type of sedation and procedure discussed with: RISK/ALTERNATIVES: Patient H & P ON CHART H & P H & P on chart and reviewed for co-morbid conditions and appropriate labs. H&P ON CHART: Yes STATUS PREG STATUS ASSESSED: N/A MEDS/ALLERGIES REVIEWED Meds/Allergies Reviewed Medications and Allergies including time and route of recently administered narcotics and sedatives. MEDS/ALLERGIES REVIEWED: Yes ASA RATING ASA RATING: II AIRWAY ASSESSMENT Airway Assessment Airway patency, oral function limitations, presence of caps, crowns, dentures, partials, and ability to extend neck assessed. AIRWAY ASSESSMENT: Yes MALLAMPATI SCORE MALLAMPATI SCORE: II PRE-SEDATION ASSESSMENT PRE-SEDATION ASSESSMENT: Yes LUIGI BARDALES MD Nov 03, 2020 10:17
[2020-11-03] MEDS ORDERED: fentaNYL PF VIAL 100 MCG/2 ML VIAL IV ONE (10:30)
[2020-11-03] MEDS ORDERED: MIDAZOLAM HCL/PF 2 MG/2 ML VIAL. IV ONE (10:30)
[2020-11-03] MEDS ORDERED: LIDOCAINE 1% PF 2 ML VIAL. INJ ONE (10:30)
[2020-11-03] MEDS ORDERED: NITROGLYCERIN 200 MCG/2 ML SYRINGE FOR CATH/VASC LAB. ONE ×2 (10:33→10:34)
[2020-11-03] MEDS ORDERED: VERAPAMIL 5 MG/2 ML VIAL. ONE (10:33)
[2020-11-03] MEDS ORDERED: vitamin D PO (10:34)
[2020-11-03] MEDS ORDERED: [UNRECOGNIZED DRUG - CODE] IV (10:34)
[2020-11-03] MEDS ORDERED: GENT30OI2 TP (10:34)
[2020-11-03] MEDS ORDERED: CLOB15CR TP (10:34)
[2020-11-03] MEDS ORDERED: VERAPAMIL 5 MG/2 ML VIAL. IART ONE (11:00)
[2020-11-03] MEDS ORDERED: NITROGLYCERIN 200 MCG/2 ML SYRINGE FOR CATH/VASC LAB. IART ONE (11:00)
[2020-11-03] MEDS ORDERED: HEPARIN for IV BOLUS 10,000 UNIT/10 ML VIAL. IART ONE (11:00)
[2020-11-03] MEDS ORDERED: MORPHINE SULFATE 10 MG/ML VIAL. IV ONE (11:00)
[2020-11-03] MEDS ORDERED: IODIXANOL 320 MG/ML 100 ML VIAL. IART ONE (11:00)
[2020-11-03] MEDS ORDERED: IV 1/2 NORMAL SALINE 1,000 ML IV SCH (11:15)
[2020-11-03] MEDS ORDERED: CONTRAST GIVEN. MC PRN (11:15)
--- NOTE | 2020-11-03 11:20 | CARD ---
MR#: [id number] Date of Study: 11/03/2020 Ordering Physician: LUIGI TAPIA, Referring Physician: LUIGI TAPIA Tech: Yoselin Nieves RT(R) APPROVED REPORT Patient StatusOUT-PATIENT Book Critic: Yoselin Nieves RT(R) Procedure(s) performed: Aortogram with bilateral lower extremity runoff via right transradial approac h Fluoro Time: 5.7 Minutes Sedation Time: 29 Minutes Dose: 31 Gycm2 Contrast: 86mL Visipaque 320 INDICATION FOR PROCEDURE The indication(s) include : Nonhealing lower extremity wound and abnormal arterial duplex scan. CASE TECHNIQUE After explaining the risks, benefits, and alternative options, informed consent was obtained from the patient. IV conscious sedation was used throughout procedure with appropriate monitoring and was per formed in the presence of a registered nurse who was an independent trained observer other than the carlos a urbina performing the procedure. During this case, Fluoroscopy and low osmolar contrast were used f or imaging. Specimen(s) Removed: No Estimated Blood loss: 10 cc's. PROCEDURE NARRATIVE Patient was brought to the cardiac Oil Field Operator and her right wrist was prepped and draped in the usual f ashion of the confirming a positive modified Thomas's test. Arterial access was obtained in the right radial artery and a 6 Palauan sheath was inserted. A 6 Palauan R2P PV Multicurve catheter advanced un cameron fluoroscopy guidance and with the tip positioned in the distal descending aorta, aorto iliac tal ography was performed. The catheter was then positioned in the right external iliac artery and selec tive right lower extremity angiography was performed. Subsequently, this was positioned in the left external iliac artery under fluoroscopic guidance and selective left lower extremity angiography was performed. Patient tolerated the procedure well. Hemostasis was achieved using TR band. There were no immediate complications. FINDINGS 1. No significant stenosis involving the distal descending aorta. 2. No significant stenosis involving bilateral common and external iliac arteries. 3. No significant stenosis involving bilateral common femoral arteries. 4. No significant stenosis involving bilateral superficial femoral arteries. 5. No significant stenosis involving bilateral popliteal arteries. There is good three vessel runof f below the knee bilaterally. Conclusion No significant peripheral artery disease. Signed by : Luigi Tapia, Electronically Approved : 11/03/2020 11:19:23
--- NOTE | 2020-11-03 14:10 | NUR ---
Discharge Note: JERILYN MUÑOZ LC Discharge instructions and discharge home medications reviewed with Patient and a copy given. All questions have been answered and understanding verbalized. The following instructions and handouts were given: adult moderate sedation and radial site care Discontinued lines and drains: Peripheral IV intact. Patient discharged to Home or Self Care withFamily Membera Wheelchair
== END 2020-11-03 14:15 | disposition home or self-care (01) ==
LOC: CCL 09:04
PROVIDERS: ATTEND Internal Medicine Cardiovascular Disease
DX: M79.604 Pain in right leg (principal); I10 Essential (primary) hypertension; K21.9 Gastro-esophageal reflux disease without esophagitis; M19.90 Unspecified osteoarthritis, unspecified site; M10.9 Gout, unspecified; Z79.899 Other long term (current) drug therapy; Z98.890 Other specified postprocedural states; Z88.0 Allergy status to penicillin; Z88.1 Allergy status to other antibiotic agents; Z88.2 Allergy status to sulfonamides; Z88.8 Allergy status to other drugs, medicaments and biological substances
CPT/HCPCS: 36415; 75625; 75716; 80048; 85027; 99152; 99153; C1769; C1894; J1644; J2250; J2270; J3490; Q9967

== ENCOUNTER → 2021-01-15 | Outpatient (CLI) | payer OTHER ==
[2020-11-03 14:00] VITALS: BP 133/75
[~2021-01-15] MED LIST changes: +CLOB15CR TP; +GENT30OI2 TP; -IODIXANOL 320 MG/ML 100 ML VIAL. ONE; +METH-570 PO; -METH5TAB2 PO; +[UNRECOGNIZED DRUG - CODE] IV; +vitamin D PO
--- NOTE | 2021-01-15 15:55 | RAD ---
Right ankle 3 views, right foot 3 views. HISTORY: Ankle wound, foot pain Right ankle 3 views were taken of the right ankle. There is not evidence of an acute fracture. There is a sclerot ically marginated lucent lesion in the distal talus near the talonavicular joint. Subtle chondral cys ts from arthritis is possible, osteomyelitis could have this pattern. MRI of the foot could be of umair efit. There is no fracture or other acute osseous abnormality at the ankle. Right foot 3 views were taken of the right foot. Again noted is the subchondral sclerotically marginated lucent lesion in the distal talus. There is loss of the joint space at the talonavicular joint. Subchondral cysts from degenerative change or osteomyelitis would be possible. There is dislocation of the fourth toe relative to the head of the fourth metatarsal. There is no acute fracture. There is no other bon y destructive process in the right foot. IMPRESSION: 1. No fracture or osseous abnormality at the right ankle. 2. Subchondral sclerotically marginated lucency in the talus from arthritis or osteomyelitis. 3. Dislocation of the right fourth toe relative to the fourth metatarsal head. Electronically signed by: Booker Palomino MD (01/15/2021 3:53 PM) [id number]
== END ==
LOC: RAD 11:49
PROVIDERS: ATTEND Internal Medicine
DX: S93.334A Other dislocation of right foot, initial encounter (principal); M86.8X7 Other osteomyelitis, ankle and foot; X58.XXXA Exposure to other specified factors, initial encounter; Y93.89 Activity, other specified; Y92.89 Other specified places as the place of occurrence of the external cause; Y99.8 Other external cause status
CPT/HCPCS: 73610; 73630

== ENCOUNTER → 2021-03-23 | Outpatient (CLI) | payer OTHER ==
[2020-11-03 14:00] VITALS: BP 133/75
[~2021-03-23] MED LIST changes: +CYCL10TA19 PO; -CYCL10TA2 PO
--- NOTE | 2021-03-23 14:51 | RAD ---
EXAM: Right lower extremity venous Doppler. HISTORY: Nonhealing lower extremity ulcers. COMPARISON: None. FINDINGS: Grayscale and Doppler analysis of the right lower extremity deep venous system was performe d with graded compression and augmentation. The common femoral, greater saphenous, superficial femora l, popliteal and calf veins were assessed. No fluid collections are noted deep to the ulcers medially or laterally. No significant veins or perf orators are immediately in the region of the ulcers medially or laterally. A perforating vein is note d medially superior to the medial ulcer. The right short saphenous vein passes lateral to the wound a nd demonstrates no reflux. The right short saphenous vein measures 5 mm proximally and 4 mm distally. A thigh bark fitter on the right measures 1.5 cm and demonstrates 1.2 seconds reflux. IMPRESSION: 1. No significant veins or perforators in the bed of either ulcer. 2. 1.2 seconds reflux of a thigh bark fitter. Electronically signed by: Kathya Lowery MD (03/23/2021 2:48 PM) [id number]
== END ==
LOC: US 10:40
PROVIDERS: ATTEND Internal Medicine Cardiovascular Disease
DX: I87.2 Venous insufficiency (chronic) (peripheral) (principal)
CPT/HCPCS: 93971